=== PATIENT | male | born 1960 | race Caucasian/White ===

== ENCOUNTER 2021-06-16 16:29 | Emergency (ER) | payer OTHER, SELFPAY ==
[2021-06-16] VITALS (8 sets, daily range): BP systolic 108–145; BP diastolic 64–81; PULSE 68–82; RESP 14–21; TEMP 36.8; O2SAT 97–100
--- NOTE | ~2021-06-16 | XR_ITS ---
EXAMINATION: XR chest 2V DATE: 06/16/2021 17:59 INDICATION: Shortness of breath. TECHNIQUE: Frontal and lateral views of the chest were obtained. COMPARISON: Chest single view 05/30/2019, CT abdomen and pelvis 03/25/2017 FINDINGS: The chest demonstrates clear lungs without pneumonia, pleural effusion, or pneumothorax. Th e heart size is normal. IMPRESSION: 1. No acute cardiopulmonary disease. Reviewed, dictated and finalized at location A.
--- NOTE | 2021-06-16 16:46 | ECG_ITS ---
Measurements Intervals [place] Rate: 70 P: 82 [place]: 148 QRS: 70 QRSD: 77 T: 95 QT: 346 QTc: 375 Interpretive Statements SINUS RHYTHM NONSPECIFIC ST & T-WAVE ABNORMALITY- INF/LAT LEADS BASELINE ARTIFACT- II, V3-V6 BORDERLINE ECG Electronically Signed On 06-16-2021 19:11:55 CDT by Hernandez Gibson D.O.
[2021-06-16 17:00] LABS: Basophils Percent Auto 0.2 % (0.2-1.2); Eosinophils Absolute Auto 0.1 K/mm3 (0-0.3); Eosinophils Percent Auto 0.7 % (0-4.4); Hemoglobin 16.1 g/dL (14.0-18.0); Immature Granulocyte Absolute 0.07 K/mm3 (0.00-0.031); Immature Granulocyte Percent A 0.6 % (0-0.5); Lymphocytes Absolute Auto 2.85 K/mm3 (0.9-3.2); Lymphocytes Percent Auto 24.1 % (18.3-44.2); Mean Corpuscular HGB Conc 34.3 g/dl (32-36); Mean Corpuscular Hemoglobin 30.4 pg (26-34); Mean Corpuscular Volume 88.8 fl (80-100); Mean Platelet Volume 10.5 fl (7.4-10.4); Monocytes Absolute Auto 0.9 K/mm3 (0.1-0.6); Monocytes Percent Auto 7.2 % (2.6-8.5); Neutrophils Percent Auto 67.2 % (45.5-73.1); Platelet Count Result 349 k/mm3 (150-375); Red Blood Count 5.29 M/mm3 (4.6-6.20); Red Cell Distribution Width 12.4 % (11.5-14.5); White Blood Count 11.8 K/mm3 (4.5-10.0)
[2021-06-16] MEDS: SODIUM CHLORIDE 0.9% IV 1,000 ML 999 ML IV CONT ×3 (17:34→18:54)
[2021-06-16 17:51] LABS: Alveolar/Arterial O2 Gradient 25.3 mmHg; Base Excess ABG -4.3 mEq/l (+/-2.0); Fractional Inspired Oxygen 21 %; HCO3 ABG 19.9 mEq/l (22.0-26.0); Oxygen Content ABG 19.8 %vol (16.0-22.0); Oxygen Saturation ABG 96.2 % (95.0-100.0); Oxyhemoglobin 91.9 % THb (90.0-100.0); PCO2 ABG 34.1 mmHg (35.0-45.0); PO2 ABG 83.6 mmHg (80.0-100.0); PO2 FiO2 Ratio Arterial Blood 3.98 %; Total Hemoglobin 15.3 g/dL (12.0-18.0); pH ABG 7.383 (7.350-7.450)
[2021-06-16 17:52] LABS: Device ROOM AIR; Modified Allen's Test Pass; Site Drawn RIGHT RADIAL
[2021-06-16 18:02] LABS: Beta-Hydroxybutyrate/Acetoacetate 0.15 mmol/L (0.02-0.27)
[2021-06-16 18:04] LABS: Troponin I < 0.012 ng/mL (0.000-0.034)
--- NOTE | 2021-06-16 18:14 | ED.DIZZY ---
HPI - Dizziness General Chief Complaint: Dizziness Stated Complaint: dizziness Time Seen by Provider: 06/16/21 17:12 History of Present Illness HPI Narrative: Patient presents with generalized weakness. Patient ports that been going on for the past couple days and is reporting paresthesias in his lower legs. Patient was concerned so he came in for evaluation. This weakness is associated with shortness of breath prickly with physical activity reports mild decrease in his appetite but has been drinking fluids. Denies any focal areas of pain such as chest pain, abdominal pain. He denies any fevers, cough, pain with urination. He did report a history of kidney infection and was worried something similar may be occurring Related Data Allergies Allergy/AdvReac Type Severity Reaction Status Date / Time No Known Allergies Allergy Verified 06/16/21 16:46 Review of Systems Review of Systems: CONSTITUTIONAL: Denies fever, chills, or sweats. EYES: Denies visual changes, redness, or discharge. ENT: Denies rhinorrhea, congestion, sore throat, or otalgia. CARDIOVASCULAR: Denies chest pain, palpitations, or edema. RESPIRATORY: Denies cough or dyspnea. GASTROINTESTINAL: Denies abdominal pain, nausea, vomiting, or diarrhea. GENITOURINARY: Denies dysuria or hematuria. SKIN: Denies rash or itching. MUSCULOSKELETAL: Denies back pain, joint pain, or myalgia. NEUROLOGIC: Denies headache, numbness, or focal weakness. PSYCHIATRIC: Denies anxiety or depression. All systems reviewed & are unremarkable except as noted in HPI and below PMFSH Family History Family History (Updated 09/12/13 @ 13:29 by DOCTOR UNKNOWN) Other Cerebrovascular accident Diabetes mellitus Social History Social History Alcohol intake: current Exam Narrative: GENERAL: Well-appearing, well-nourished, and in no acute distress. HEAD: Normocephalic, atraumatic. EYES: PERRLA and EOMI. ENT: Nares clear, no rhinorrhea or epistaxis. Mucous membranes moist. NECK: Supple. No masses. No JVD CHEST: Clear to auscultation. No respiratory distress. No wheezes rales or rhonchi HEART: Regular rate and rhythm. No murmur heard. Normal peripheral pulses. ABDOMEN: Soft, nontender, nondistended, normal active bowel sounds. EXTREMITIES: Normal range of motion. No edema. SKIN: Warm, dry, no rash. NEURO: 5 out of 5 strength in bilateral lower extremities alert and oriented x3. PSYCH: Normal mood and affect. Course Reevaluation(s) Reevaluation #1: PT reports feeling improved, PVR 100 Date: 06/16/21 Time: 20:30 Vital Signs Vital signs: Vital Signs Temperature 36.8 C 06/16/21 16:38 Pulse Rate 79 06/16/21 16:38 Respiratory Rate 16 06/16/21 16:38 Blood Pressure 145/75 H 06/16/21 16:38 Pulse Oximetry 100 06/16/21 16:38 Temperature 36.8 C 06/16/21 16:38 Pulse Rate 70 06/16/21 20:45 Respiratory Rate 14 06/16/21 20:45 Blood Pressure 144/81 H 06/16/21 20:45 Pulse Oximetry 97 06/16/21 20:45 MDM - Dizziness Lab Data Result diagrams: 06/16/21 16:48 06/16/21 19:29 Labs: Lab Results 06/16/21 06/16/21 06/16/21 Range/Units 16:48 16:48 16:48 WBC 11.8 H (4.5-10.0) K/mm3 RBC 5.29 (4.6-6.20) M/mm3 Hgb 16.1 (14.0-18.0) g/dL Hct 47.0 (42.0-52.0) % MCV 88.8 (80-100) fl MCH 30.4 (26-34) pg MCHC 34.3 (32-36) g/dl RDW 12.4 (11.5-14.5) % Plt Count 349 (150-375) k/mm3 MPV 10.5 H (7.4-10.4) fl Immature Gran % (Auto) 0.6 H (0-0.5) % Neut % (Auto) 67.2 (45.5-73.1) % Lymph % (Auto) 24.1 (18.3-44.2) % [place] % (Auto) 7.2 (2.6-8.5) % Eos % (Auto) 0.7 (0-4.4) % Baso % (Auto) 0.2 (0.2-1.2) % Lymph # (Auto) 2.85 (0.9-3.2) K/mm3 [place] # (Auto) 0.9 H (0.1-0.6) K/mm3 Eos # (Auto) 0.1 (0-0.3) K/mm3 Baso # (Auto) 0.0 (0.0-0.1) K/mm3 Abs Immat Gran (auto) 0.07 H (0.00-0.031) K/mm3 Absolute Neuts (auto) 8.0 H (1.3-6.7) K/m
[2021-06-16 18:21] LABS: Anion Gap 12 mmol/L (8-16); Blood Urea Nitrogen 43 mg/dL (9-20); Calcium 9.5 mg/dL (8.4-10.2); Carbon Dioxide 18 mmol/L (22-30); Chloride 101 mmol/L (98-107); Estimated CRCL calculation 65 ml/min; Estimated Glomerular Filt Rate 52; Glucose 366 mg/dL (65-110); Potassium 4.9 mmol/L (3.4-5.0); Sodium 131 mmol/L (137-145)
[2021-06-16 18:33] LABS: Add Urine Microscopic? YES; Appearance Urine Clear (Clear); Bilirubin Urine Negative (Negative); Blood Urine Negative (Negative); Color Urine Yellow (Yellow); Glucose Urine UA 3+ mg/dL (Negative); Ketones Urine Negative (Negative); Leukocyte Esterase Ur Negative LEU/UL (Negative); Mucus Urine Rare /lpf; Nitrate Urine Negative (Negative); Protein Urine Negative (Negative); RBC Urine 0-2 /hpf (0-2); Specific Grav Ur 1.024 (1.001-1.035); Squamous Epithelial Cell Urine Rare /hpf (Few); Urobilinogen Urine Negative mg/dL (<2.0); WBC Urine 0-3 /hpf
--- NOTE | 2021-06-16 19:17 | PC.NURSE ---
report to hiram womack
[2021-06-16 19:46] LABS: Glucose 223 mg/dL (65-110)
--- NOTE | 2021-06-16 21:01 | PC.NURSE ---
Ambulation per ERP instruction tolerated well. ERP made aware at this time.
== END 2021-06-16 21:30 | disposition home or self-care (01) ==
PROVIDERS: Family Medicine; Emergency Provider Emergency Medicine; PCP Internal Medicine
DX: N17.9 Acute kidney failure, unspecified (principal); R42 Dizziness and giddiness
CPT/HCPCS: 36415; 36600; 71046; 80048; 81001; 82010; 82805; 82947; 84484; 85025; 93005; 96360; 99284; J7030

== ENCOUNTER 2022-12-09 14:14 | Emergency (ER) | payer OTHER, SELFPAY ==
[2022-12-09 14:17] VITALS: BP 167/87; PULSE 76; RESP 18; TEMP 37; O2SAT 99
--- NOTE | 2022-12-09 15:29 | ED.EPISTAXIS ---
HPI - Epistaxis General Chief complaint: Epistaxis Stated complaint: nose bleed Time Seen by Provider: 12/09/22 14:32 Source: patient Mode of arrival: ambulatory Limitations: no limitations History of Present Illness HPI Narrative: Patient is a 62 y/o male who presents to the ED with c/o epistaxis. Patient reports he first developed an epistaxis from his left nare this morning. He was unable to get the bleeding to stop. Patient is on Plavix d/t Hx of previous coronary stenting. He was seen at the ED at [facility] in [place], [place] this morning at which time he had what appears to be a merocel placed in his L nare. He was placed on Amoxicillin for TSS prophylaxis. Patient reports he has continued to bleed around the Merocel packing. He has had blood dripping out the front of his nare and down his throat. Patient states he was not given ENT f/u. Denies fevers, nausea, vomiting, severe pain. Related Data Allergies Allergy/AdvReac Type Severity Reaction Status Date / Time No Known Allergies Allergy Verified 06/16/21 16:46 Review of Systems Review of Systems: CONSTITUTIONAL: Denies fever, chills, or sweats. ENT: See HPI. CARDIOVASCULAR: Denies chest pain. RESPIRATORY: Denies dyspnea. GASTROINTESTINAL: Denies abdominal pain, nausea, vomiting. NEUROLOGIC: Denies headache, numbness, or weakness. All systems reviewed & are unremarkable except as noted in HPI and below PMFSH Past Medical History Medical History (Updated 12/09/22 @ 17:30 by Kay George PA-C) Coronary artery disease Diabetes mellitus HLD (hyperlipidemia) HTN (hypertension) Surgical History Surgical History (Updated 12/09/22 @ 17:30 by Kay George PA-C) History of coronary artery stent placement Family History Family History (Updated 09/12/13 @ 13:29 by DOCTOR UNKNOWN) Other Cerebrovascular accident Diabetes mellitus Social History Social History Alcohol intake: current Exam Narrative: GENERAL: Well appearing, obese, non-toxic, in no acute distress. HEAD: Normocephalic, atraumatic. EYES: PERRLA/EOMI, conjunctiva clear. ENT: Dried blood in bilateral nares, L>R, nasal packing in place in L nare. Gauze tip of packing does appear to be soaked with blood. No blood down posterior pharynx. No tonsillar hypertrophy or exudate. Uvula midline. NECK: Supple. No adenopathy, no masses. RESPIRATORY: Airway patent, respirations nonlabored. Clear to auscultation bilaterally, no rales, rhonchi, wheezing. CARDIOVASCULAR: Regular rate and rhythm without murmurs, rubs, or gallops. Radial pulses 2+ and equal bilaterally. MUSCULOSKELETAL: Moves all extremities. Strength/ROM intact without gross deformities. SKIN: Warm, dry, normal color. No rashes. NEURO: A&O X3. Speech clear. Cranial nerves II-XII grossly intact. Steady gait. No ataxic movements. PSYCHIATRIC: Appropriate mood and affect. Normal interaction. Course Vital Signs Vital signs: Vital Signs Temperature 98.6 F 12/09/22 14:17 Pulse Rate 76 12/09/22 14:17 Respiratory Rate 18 12/09/22 14:17 Blood Pressure 167/87 H 12/09/22 14:17 Pulse Oximetry 99 12/09/22 14:17 Oxygen Delivery Room Air 12/09/22 14:17 Temperature 98.6 F 12/09/22 14:17 Pulse Rate 70 12/09/22 15:53 Respiratory Rate 12 12/09/22 15:53 Blood Pressure 135/86 12/09/22 15:53 Pulse Oximetry 95 12/09/22 15:53 Oxygen Delivery Room Air 12/09/22 14:17 Procedures Epistaxis Control left: Epistaxis Control Date: 12/09/22 Epistaxis Control Time: 15:30 Time Out Performed: Yes Nose Prepped With: oxymetazoline Direct Inspection: unable to visualize Clots Removed by: blowing nose Cautery Used: none Device Inserted: nasal tampon Device Size: 5 Patient Tolerated Procedure: well and no complications Complications: other (none) MDM - E
[2022-12-09 15:53] VITALS: BP 135/86; PULSE 70; RESP 12; O2SAT 95
== END 2022-12-09 16:11 | disposition home or self-care (01) ==
PROVIDERS: Emergency Provider Physician Assistant; PCP Internal Medicine
DX: R04.0 Epistaxis (principal); I25.10 Atherosclerotic heart disease of native coronary artery without angina pectoris; I10 Essential (primary) hypertension; E11.9 Type 2 diabetes mellitus without complications; E78.5 Hyperlipidemia, unspecified; Z95.5 Presence of coronary angioplasty implant and graft; Z79.02 Long term (current) use of antithrombotics/antiplatelets; Z79.4 Long term (current) use of insulin; Z79.84 Long term (current) use of oral hypoglycemic drugs
CPT/HCPCS: 30901; 99283; A9270

== ENCOUNTER 2023-12-01 00:52 | Day surgery (SDC) | payer OTHER, SELFPAY ==
[2023-11-30 13:52] VITALS: BMI 33.7
[2023-12-01] VITALS (16 sets, daily range): BP systolic 118–163; BP diastolic 68–99; PULSE 56–70; RESP 12–20; TEMP 36.3–36.7; O2SAT 94–98; BMI 32.0
[2023-12-01 07:45] LABS: Basophils Percent Auto 0.4 % (0.2-1.2); Eosinophils Absolute Auto 0.2 K/mm3 (0-0.3); Eosinophils Percent Auto 2.9 % (0-4.4); Hematocrit 50.7 % (42.0-52.0); Hemoglobin 16.3 g/dL (14.0-18.0); Immature Granulocyte Absolute 0.03 K/mm3 (0.00-0.031); Immature Granulocyte Percent A 0.4 % (0-0.5); Lymphocytes Absolute Auto 1.43 K/mm3 (0.9-3.2); Lymphocytes Percent Auto 20.9 % (18.3-44.2); Mean Corpuscular HGB Conc 32.1 g/dl (32-36); Mean Corpuscular Hemoglobin 29.9 pg (26-34); Mean Platelet Volume 10.2 fl (7.4-10.4); Monocytes Absolute Auto 0.6 K/mm3 (0.1-0.6); Monocytes Percent Auto 8.8 % (2.6-8.5); Neutrophils Absolute Auto 4.6 K/mm3 (1.3-6.7); Neutrophils Percent Auto 66.6 % (45.5-73.1); Platelet Count Result 253 k/mm3 (150-375); Red Blood Count 5.45 M/mm3 (4.6-6.20); Red Cell Distribution Width 13.1 % (11.5-14.5); White Blood Count 6.8 K/mm3 (4.5-10.0)
[2023-12-01 08:11] LABS: Anion Gap 5 mmol/L (8-16); Blood Urea Nitrogen 16 mg/dL (9-20); Calcium 8.8 mg/dL (8.4-10.2); Carbon Dioxide 26 mmol/L (22-30); Chloride 107 mmol/L (98-107); Estimated CRCL calculation 137 ml/min; Estimated Glomerular Filt Rate > 60; Glucose 212 mg/dL (65-110); Sodium 138 mmol/L (137-145)
[2023-12-01 08:16] LABS: Potassium 5.3 mmol/L (3.4-5.0)
--- NOTE | 2023-12-01 10:42 | WPDMODSED ---
Moderate Sedation Note-Pt Data Patient Data Diagnosis: Coronary disease with previous PCI to the LAD remote past aortic valve stenosis exertional shortness of breath Present Complaint: TORRES Procedure to be performed/Plan: left heart catheterization Allergies Allergy/AdvReac Type Severity Reaction Status Date / Time No Known Allergies Allergy Verified 12/01/23 07:24 Home Medications Medication Instructions Recorded Confirmed Type atorvastatin 40 mg tablet 40 mg PO DAILY 12/12/22 11/30/23 History clopidogrel 75 mg tablet 75 mg PO DAILY 12/12/22 11/30/23 History gemfibrozil 600 mg tablet 600 mg PO BID 12/12/22 11/30/23 History insulin glargine 100 unit/mL (3 82 unit subcut DAILY 12/12/22 11/30/23 History mL) subcutaneous pen (Basaglar KwikPen U-100 Insulin) lisinopril 20 mg tablet 20 mg PO DAILY 12/12/22 11/30/23 History metformin 1,000 mg tablet 1,000 mg PO BID 12/12/22 11/30/23 History aspirin 81 mg chewable tablet 81 mg PO DAILY 11/30/23 11/30/23 History metoprolol succinate 50 mg 50 mg PO DAILY 11/30/23 11/30/23 History tablet,extended release 24 hr Current Medications: Active Medications Sodium Chloride (Normal Saline Iv) 500 mls @ 100 mls/hr IV CONT .Q5H MIRNA Sedation/Anesthesia: No previous sedation/anesthesia problems (including family history). [facility] Past Medical History Medical History Coronary artery disease Diabetes mellitus HLD (hyperlipidemia) HTN (hypertension) Surgical History Surgical History History of coronary artery stent placement Family History Family History Other Cerebrovascular accident Diabetes mellitus Social History Social History (Updated 12/12/22 @ 15:51 by EVANGELISTA Olmstead) Smoking packs per day: 1 Smoking cigarettes per day: 20.0 Years smoked: 45 Smoking pack-years: 45.00 Smoking status: Current every day smoker Tobacco type: cigarettes Alcohol intake: current Alcohol use details: occasional Substance use: never Substance use type: does not use Lack of Transportation: No Lack of Food: Never True Current Housing: I Have Housing Concerned About Future Housing: No Difficulty Paying Gas/Electric Bills: No Difficulty Paying for Meds: No Currently Unemployed: No Education: High School Diploma/GED Difficulty w/ Childcare or Family Care: No Living arrangements: with family Spiritual care concerns: No Mod Sed Physical Exam Physical Exam Pre Procedural Exam: Normal: Neck, Throat, Airway, Lungs, Heart Size, Heart Rate, Heart Rhythm, Neuro Exam and Extremities and Variation: Appearance ( pleasant overweight gentleman no apparent distress) Hours since solid foods: 12 Hours since liquid intake: 12 Mallampati Classification: class II Internal Medicine - PN: Obj Da Vital Signs Vital Signs: Vital Signs - 24 hr 12/01/23 07:33 Temperature 36.3 C L Pulse Rate 60 Respiratory Rate 16 Blood Pressure 121/77 Pulse Oximetry 94 Oxygen Delivery Room Air Meds/Results Medications: Active Medications Generic Name Dose Route Start Last Admin Trade Name Freq PRN Reason Stop Dose Admin Sodium Chloride 500 mls @ 100 mls/hr 12/01/23 07:30 Normal Saline Iv IV CONT .Q5H MIRNA Labs 12/01/23 07:30 12/01/23 07:30 Labs: Laboratory Results - last 24 hr 12/01/23 07:30 WBC 6.8 RBC 5.45 Hgb 16.3 Hct 50.7 MCV 93.0 MCH 29.9 MCHC 32.1 RDW 13.1 Plt Count 253 MPV 10.2 Immature Gran % (Auto) 0.4 Neut % (Auto) 66.6 Lymph % (Auto) 20.9 [place] % (Auto) 8.8 H Eos % (Auto) 2.9 Baso % (Auto) 0.4 Lymph # (Auto) 1.43 [place] # (Auto) 0.6 Eos # (Auto) 0.2 Baso # (Auto) 0.0 Abs Immat Gran (auto) 0.03 Absolute Neuts (auto) 4.6 Absolute Nucleated RBC 0.0 Nucleated RBC % 0.0 Sodium 13
--- NOTE | 2023-12-01 10:43 | WPDCARDPROC ---
Cardiac Cath Procedure Note Date of procedure:: 12/01/23 Performing physician:: Ilan Reich MD Indication:: coronary disease and aortic valve stenosis evaluation prior to considering aortic valve replacement Brief clinical history:: this is a 62-year-old man with coronary disease history of aggressive PCI with rotational atherectomy and stenting of the proximal half of the LAD in 2009. He also is known to have aortic valve stenosis which has been essentially asymptomatic he is now reporting exertional shortness of breath of recent onset and echocardiogram suggests that he has severe aortic valve stenosis. Left ventricular systolic function looked normal. In this left heart catheterization is being performed prior to considering aortic valve replacement Procedure Procedure performed:: coronary angiography left-sided hemodynamics with left ventriculography and pullback pressures across the aortic valve Sedation/Medication given:: fentanyl 50 mg Versed 2 mg case start time 10 13 case end time 10:38 a.m. sedation provided by Omayra Mendez RN, trained observer Access site:: right femoral artery Estimated blood loss:: 20 cc Procedure note:: patient was brought to the cardiac catheterization lab in the postabsorptive state where the right femoral triangle was prepped draped the usual fashion. Anesthesia was provided with 1% lidocaine infiltrated locally. Using the modified Seldinger technique the femoral artery was punctured and a 5 Polish vascular sheath was placed. After this I used a 5 Polish FL4 catheter to engage and inject the left coronary artery in multiple projections subsequently a 5 Polish JR4 catheter was used to engage and inject the right coronary artery in orthogonal projections. After this I used the JR4 catheter with a straight wire to cross the aortic valve and enter the left ventricle where hemodynamic assessment was performed and then pullback pressures were measured across the aortic valve. Left ventriculography was not injected. Procedure was then terminated. A femoral angiogram was performed through the sheath after which it was determined the puncture site was not appropriate for Angio-Seal. Was taken to the holding area for manual sheath removal. Procedure was uncomplicated and well tolerated there was no evidence of groin hematoma upon leaving the cardiac catheterization lab. Findings:: Hemodynamics: Central aortic pressure is 108/54. Left ventricle 122 over 0 end-diastolic 16 there is 14 mm peak gradient across the aortic valve. Left main coronary artery is short but nicely patent the left anterior descending is a moderate caliber artery with stent material from the 1st portion of the LAD down to the midportion of the vessel. The the stented segment has no significant InStent stenosis. There is a 2nd diagonal branch with moderate ostial disease but this is a very small diagonal. There is then a step-down from the segment of the LAD that is stented into the mid to distal LAD. There is however angiographically no more than about 40-50% stenosis at this segment. There is SUSHILA 3 flow down to around the apex. The LAD distal to this angiographically is rather small. The circumflex is moderate caliber and dominant for posterior circulation. The circumflex has some mild diffuse luminal irregularities noted but angiographically there are no significant lesions identified. The right coronary artery is small to medium in caliber non dominant giving rise to 2 right ventricular branches. The RCA angiographically is non disease. Conclusion:: 1. Left coronary dominant circulation with previous proximal to mid LAD segment that was stented and the long segment of the artery this remains nicely patent with minimal step-down at the end of the stented segment but no functionally his significant lesions are seen in the LAD. 2. Dominant circumflex without significant disease 3. likely
== END 2023-12-01 16:37 | disposition home or self-care (01) ==
PROVIDERS: PCP Internal Medicine; Visit Provider Specialist
PROC: 4A023N7 Measurement of Cardiac Sampling and Pressure, Left Heart, Percutaneous Approach (ICD-10-PCS; CPT 93452; principal; 2023-12-01 09:00)
DX: I25.10 Atherosclerotic heart disease of native coronary artery without angina pectoris (principal); I35.0 Nonrheumatic aortic (valve) stenosis; Z95.818 Presence of other cardiac implants and grafts
CPT/HCPCS: 36415; 80048; 85025; 93458; C1769; C1887; C1894; J0461; J1644; J2250; J3010; J7040

== ENCOUNTER 2024-12-30 11:12 | Inpatient (IN) | payer OTHER, SELFPAY ==
[2024-12-30] VITALS (58 sets, daily range): BP systolic 109–173; BP diastolic 78–120; PULSE 91–137; RESP 10–24; TEMP 36.5–36.9; O2SAT 90–98; BMI 33.8
--- NOTE | ~2024-12-30 | US_ITS ---
EXAMINATION: US venous doppler [facility] DATE: 12/30/2024 21:07 INDICATION: bilateral lower extremity edema . TECHNIQUE: Grayscale images without and with compression and Doppler images of the bilateral lower ex tremity veins were obtained. COMPARISON: None FINDINGS: The right common femoral vein, profunda (deep) femoral vein, femoral vein, popliteal vein, peroneal v ein, posterior tibial veins, gastrocnemius vein, and greater saphenous vein are patent. The left common femoral vein, profunda (deep) femoral vein, femoral vein, popliteal vein, peroneal v ein, posterior tibial veins, gastrocnemius vein, and greater saphenous vein are patent. IMPRESSION: Patent bilateral lower extremity veins. No evidence of deep venous thrombosis. Reviewed, dictated and finalized at location K. ICAL REVIEW NURSE
--- NOTE | ~2024-12-30 | XR_ITS ---
EXAMINATION: XR chest 2V DATE: 12/30/2024 14:00 INDICATION: Shortness of breath. TECHNIQUE: Frontal and lateral views of the chest were obtained. COMPARISON: Chest 2 views 06/16/2021, CT abdomen and pelvis 03/25/2017 FINDINGS: There is mild atelectasis at right lung base. No pleural effusion or pneumothorax. The hear t size is normal. IMPRESSION: 1. Mild atelectasis at right lung base. Reviewed, dictated and finalized at location A. PING CAR PORTER
--- NOTE | 2024-12-30 11:19 | ECG_ITS ---
Test Date: 2024-12-30 11:22:05 Measurements Intervals [place] Rate: 137 P: 0 [place]: 0 QRS: 75 QRSD: 88 T: 102 QT: 289 QTc: 437 Interpretive Statements ATRIAL FLUTTER/TACHYCARDIA WITH RAPID VENTRICULAR RESPONSE BORDERLINE R WAVE PROGRESSION, ANTERIOR LEADS NONSPECIFIC ST & T-WAVE ABNORMALITY- INF/LAT LEADS BASELINE ARTIFACT- I, II, III, AVR, AVL, AVF, V4-V6 ABNORMAL ECG No previous ECG available for comparison Electronically Signed On 12-30-2024 11:29:02 [employer] MACHINE OPERATOR by Hernandez Gibson D.O.
[2024-12-30 13:49] LABS: Basophils Percent Auto 0.3 % (0.2-1.2); Eosinophils Absolute Auto 0.1 K/mm3 (0-0.3); Eosinophils Percent Auto 1.2 % (0-4.4); Hematocrit 45.1 % (42.0-52.0); Hemoglobin 14.2 g/dL (14.0-18.0); Immature Granulocyte Absolute 0.02 K/mm3 (0.00-0.031); Immature Granulocyte Percent A 0.2 % (0-0.5); Lymphocytes Absolute Auto 1.04 K/mm3 (0.9-3.2); Lymphocytes Percent Auto 11.6 % (18.3-44.2); Mean Corpuscular HGB Conc 31.5 g/dl (32-36); Mean Corpuscular Hemoglobin 29.5 pg (26-34); Mean Corpuscular Volume 93.6 fl (80-100); Mean Platelet Volume 10.3 fl (7.4-10.4); Monocytes Absolute Auto 0.6 K/mm3 (0.1-0.6); Monocytes Percent Auto 7.1 % (2.6-8.5); Neutrophils Absolute Auto 7.1 K/mm3 (1.3-6.7); Neutrophils Percent Auto 79.6 % (45.5-73.1); Platelet Count Result 281 k/mm3 (150-375); Red Blood Count 4.82 M/mm3 (4.6-6.20); Red Cell Distribution Width 15.2 % (11.5-14.5)
[2024-12-30] MEDS: METOPROLOL TARTRATE INJ 5 MG/5 ML VIAL IV PUSH (13:51)
--- NOTE | 2024-12-30 13:54 | ED_ITS ---
HPI - General Adult General Chief complaint: Recheck/Abnormal Lab/Rx Stated complaint: htn Time Seen by Provider: 12/30/24 13:28 History of Present Illness HPI narrative: 64-year-old male history of hypertension high cholesterol presents the emergency department for evaluation for multiple complaints including shortness of breath, leg swelling, high blood pressure. Patient states that he did go to urgent care and was referred to the emergency department for further evaluation. Upon arrival emergency department patient denies any chest pain and denies any current shortness of breath. Patient is saturating well on room air. Patient did have a elevated heart rate arrival. Patient states he did take his medications for blood pressure today. Patient does have history of aortic stenosis and does follow-up with Dr Reich Related Data Home Medications ?Medication ?Instructions ?Recorded ?Confirmed ?Last Taken ?Type atorvastatin 40 mg tablet 40 mg PO DAILY 12/12/22 11/30/23 11/30/23 History clopidogrel 75 mg tablet 75 mg PO DAILY 12/12/22 11/30/23 11/30/23 History gemfibrozil 600 mg tablet 600 mg PO BID 12/12/22 11/30/23 11/30/23 History insulin glargine 100 unit/mL (3 82 unit subcut DAILY 12/12/22 11/30/23 11/30/23 History mL) subcutaneous pen (Basaglar KwikPen U-100 Insulin) lisinopril 20 mg tablet 20 mg PO DAILY 12/12/22 11/30/23 11/30/23 History metformin 1,000 mg tablet 1,000 mg PO BID 12/12/22 11/30/23 11/30/23 History aspirin 81 mg chewable tablet 81 mg PO DAILY 11/30/23 11/30/23 11/30/23 History metoprolol succinate 50 mg 50 mg PO DAILY 11/30/23 11/30/23 11/30/23 History tablet,extended release 24 hr Allergies Allergy/AdvReac Type Severity Reaction Status Date / Time No Known Allergies Allergy Verified 12/30/24 11:25 Review of Systems 2 Review of Systems: All systems reviewed & are unremarkable except as noted in HPI and below PMFSH Past Medical History Medical History Coronary artery disease Diabetes mellitus HLD (hyperlipidemia) HTN (hypertension) Surgical History Surgical History History of coronary artery stent placement Family History Family History Other Cerebrovascular accident Diabetes mellitus Social History Social History (Updated 12/12/22 @ 15:51 by EVANGELISTA Olmstead) Smoking packs per day: 1 Smoking cigarettes per day: 20.0 Years smoked: 45 Smoking pack-years: 45.00 Smoking status: Current every day smoker Tobacco type: cigarettes Alcohol intake: current Alcohol use details: occasional Substance use: never Substance use type: does not use Lack of Transportation: No Lack of Food: Never True Current Housing: I Have Housing Concerned About Future Housing: No Difficulty Paying Gas/Electric Bills: No Difficulty Paying for Meds: No Currently Unemployed: No Education: High School Diploma/GED Difficulty w/ Childcare or Family Care: No Living arrangements: with family Spiritual care concerns: No Exam 2 Narrative: APPEARANCE: Well appearing, no pain, no distress, well-nourished. HEAD: normocephalic, atraumatic. EYES: PERRLA/EOMI, conjunctivae clear. NOSE: Normal no drainage EARS:TMS clear with good light reflex. THROAT: Pharynx clear, no exudate. NECK: Supple. No adenopathy, no masses. RESPIRATORY: Airway patent, respirations nonlabored. Clear to auscultation bilaterally, no rales, rhonchi, wheezing. CARDIOVASCULAR: Regular rate and rhythm without murmurs rubs or gallops. ABDOMINAL: Soft, nontender, nondistended, normal bowel sounds MUSCULOSKELETAL: Lower extremity edema NEURO: Alert. Cranial nerves II through XII intact. Good gait. Good coordination SKIN: Warm, dry. Normal Color Course Vital Signs Vital signs: Vital Signs Temperature 97.7 F 12/30/24 11:20 Pulse Rate 125 H 12/30/24 11:20 Respiratory Rate 16 12/30/24 11:20 Blood Pressure 154/119 H 12/30/24 11:20 Pulse Oximetry 98 12/30/24 11:20 Oxygen Delivery Room Air 12/30/24 11:20 Temperature 97.7 F 12/30/24 11:20 Pulse Rate 109 H 12/30/24 15:06 Respiratory Rate 21 H 12/30/24 13:45 Blood Pressure 161/99 H 12/30/24 15:06 Pulse Oximetry 97 12/30/24 13:45 Oxygen Delivery Room Air 12/30/24 11:20 Medical Decision Making MDM Narrative Medical decision making narrative: [age] old male presenting emergency department for evaluation for a rapid heart rate in the 120s. Patient's EKG was concerning for AFib a flutter. Patient was treated with a dose of IV Lopressor and this did help lower his heart rate. After single dose of IV Lopressor patient's heart rate was decreased to 109. Patient does still have some hypertension with a blood pressure of 160/90. Patient is currently afebrile and has no leukocytosis and a stable hemoglobin of 14.2. No significant abnormalities on the patient's CMP. A BNP and viral swabs are pending. Chest x-ray just showed mild atelectasis. Patient was admitted for new onset AFib and patient was started on Cardizem bolus and infusion prior to admission. Case was discussed with hospitalist patient was accepted to IMU. Patient family updated the results of the workup plan for admission. Differential Diagnosis Differential Diagnosis: Tachycardia, AFib, a flutter, CHF, pneumonia, COVID, RSV, influenza Vital Signs Vital Signs: Vital Signs Temperature 97.7 F 12/30/24 11:20 Pulse Rate 125 H 12/30/24 11:20 Respiratory Rate 16 12/30/24 11:20 Blood Pressure 154/119 H 12/30/24 11:20 Pulse Oximetry 98 12/30/24 11:20 Oxygen Delivery Room Air 12/30/24 11:20 Temperature 97.7 F 12/30/24 11:20 Pulse Rate 109 H 12/30/24 15:06 Respiratory Rate 21 H 12/30/24 13:45 Blood Pressure 161/99 H 12/30/24 15:06 Pulse Oximetry 97 12/30/24 13:45 Oxygen Delivery Room Air 12/30/24 11:20 Lab Data Lab results reviewed: Yes I reviewed the patient's lab results. 12/30/24 13:44 12/30/24 13:44 Labs: Lab Results 12/30/24 12/30/24 Range/Units 13:44 13:50 WBC 9.0 (4.5-10.0) K/mm3 RBC 4.82 (4.6-6.20) M/mm3 Hgb 14.2 (14.0-18.0) g/dL Hct 45.1 (42.0-52.0) % MCV 93.6 (80-100) fl MCH 29.5 (26-34) pg MCHC 31.5 L (32-36) g/dl RDW 15.2 H (11.5-14.5) % Plt Count 281 (150-375) k/mm3 MPV 10.3 (7.4-10.4) fl Immature Gran % (Auto) 0.2 (0-0.5) % Neut % (Auto) 79.6 H (45.5-73.1) % Lymph % (Auto) 11.6 L (18.3-44.2) % Bennett % (Auto) 7.1 (2.6-8.5) % Eos % (Auto) 1.2 (0-4.4) % Baso % (Auto) 0.3 (0.2-1.2) % Lymph # (Auto) 1.04 (0.9-3.2) K/mm3 Bennett # (Auto) 0.6 (0.1-0.6) K/mm3 Eos # (Auto) 0.1 (0-0.3) K/mm3 Baso # (Auto) 0.0 (0.0-0.1) K/mm3 Abs Immat Gran (auto) 0.02 (0.00-0.031) K/mm3 Absolute Neuts (auto) 7.1 H (1.3-6.7) K/mm3 Absolute Nucleated RBC 0.000 (0.0-0.012) K/mm3 Nucleated RBC % 0.0 (0.0-0.2) % PT 13.7 (11.1-14.7) Seconds INR 1.0 APTT 29.6 (22.3-36.8) Seconds Sodium 142 (137-145) mmol/L Potassium 3.7 (3.4-5.0) mmol/L Chloride 107 (98-107) mmol/L Carbon Dioxide 28 (22-30) mmol/L Anion Gap 7 (4-12) mmol/L BUN 14 (9-20) mg/dL Creatinine 0.59 L (0.7-1.3) mg/dL Estim Creat Clear Calc 140 ml/min Estimated GFR > 60 (59 - ) Glucose 76 (65-110) mg/dL Calcium 9.1 (8.4-10.2) mg/dL Total Bilirubin 0.9 (0.2-1.3) mg/dL AST 22 (17-59) U/L ALT 20 (6-50) U/L Alkaline Phosphatase 86 (38-126) U/L NT-Pro-B Natriuret Pep 3500 H (19.9-100) pg/mL Total Protein 7.0 (6.3-8.2) g/dL Albumin 4.0 (3.5-5.1) g/dL Influenza A (RT-PCR) Negative (Negative) Influenza B (RT-PCR) Negative (Negative) RSV (RT-PCR) Negative (Negative) SARS-CoV-2 RNA (RT-PCR) Positive A (Negative) Imaging Data Radiologist's impression: Impressions Chest X-Ray 12/30/24 14:02 IMPRESSION: 1. Mild atelectasis at right lung base. Critical Care Time Critical Care Time Critical Care Time: Yes Total Critical Care Time: 35 Discharge Plan Discharge Clinical Impression: Shortness of breath, Hypertension, Atrial fibrillation and flutter, COVID Patient Disposition: Still a Patient Condition: Serious
[2024-12-30 14:05] LABS: Alanine Aminotransferase 20 U/L (6-50); Alkaline Phosphatase 86 U/L (38-126); Anion Gap 7 mmol/L (4-12); Aspartate Amino Transferase 22 U/L (17-59); Bilirubin,Total 0.9 mg/dL (0.2-1.3); Blood Urea Nitrogen 14 mg/dL (9-20); Calcium 9.1 mg/dL (8.4-10.2); Carbon Dioxide 28 mmol/L (22-30); Chloride 107 mmol/L (98-107); Estimated CRCL calculation 140 ml/min; Estimated Glomerular Filt Rate > 60; Glucose 76 mg/dL (65-110); Potassium 3.7 mmol/L (3.4-5.0); Sodium 142 mmol/L (137-145)
--- NOTE | 2024-12-30 14:06 | ECG_ITS ---
Test Date: 2024-12-30 14:10:43 Measurements Intervals [place] Rate: 108 P: 0 TN: 0 QRS: 65 QRSD: 103 T: 132 QT: 316 QTc: 425 Interpretive Statements ATRIAL FLUTTER/TACHYCARDIA WITH RAPID VENTRICULAR RESPONSE BORDERLINE R WAVE PROGRESSION, ANTERIOR LEADS BORDERLINE ST-T WAVE ABNORMALITY- HIGH LATERAL LEADS ABNORMAL ECG Compared to ECG 12/30/2024 11:22:05 HEART RATE HAS DECREASED Electronically Signed On 12-30-2024 14:43:41 RAT EXTERMINATOR by Hernandez Gibson D.O.
--- OUTSIDE RECORDS SUMMARY | 2024-12-30 14:13 | XMS_ITS | Referral Summary ---
Author Organization [facility] [place] [address] [facility] [address] Address [address] [place] [address] Care Team Providers Care Manager Telecom Name Role Phone Mohan Ashby MD Primary Care Provider Encounters Date Type Department Care Team Description 12/20/2024 Telephone [facility] Cardiology [address] [facility] [address] [place] [address] Ilan Reich MD Shortness of Breath from Last 3 Months Allergies No known active allergies Medications metoprolol (LOPRESSOR) 25 mg tablet TAKE 1/2 TABLET TWICE A DAY 30 0 2 Active atorvastatin (LIPITOR) 40 mg tablet take 1 tablet by oral route every day 0 0 5 Active metFORMIN (GLUCOPHAGE) 1,000 mg tablet TAKE 2 TABLET DAILY--NEEDS TO MAKE AND KEEP APPT. 60 1 5 Active aspirin 81 mg chewable tablet chew 1 tablet by oral route every day 0 0 6 Active gemfibrozil (LOPID) 600 mg tablet take 1 tablet (600MG) by oral route 2 times every day 30 minutes before morning and evening meal 60 6 2 Active clopidogrel (PLAVIX) 75 mg tablet TAKE ONE TABLET DAILY 30 2 2 Active lisinopriL (PRINIVIL,ZESTR IL) 20 mg tablet lisinopril 20 mg tablet TAKE 1 TABLET BY MOUTH EVERY DAY 4 Active BASAGLAR 100 unit/mL (3 mL) pen for injection 82 Units 3 Active Active Problems Problem Noted Date Diagnosed Date Nonrheumatic aortic valve stenosis 06/16/2022 Morbid (severe) obesity due to excess calories 0 06/16/2022 Coronary artery disease invo lving [place] coronary artery of [place] heart without angina pectoris 01/25/2018 History of coronary artery stent placement 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 ([facility]) 04/30 Hyperlipidemia 01/27/2014 Seborrheic eczema 01/27/2014 Atherosclerosis of coronary artery 01/27/2014 Overview (02/23/2018): Description: s/p two stents Hypertension 01/27/2014 Type 2 diabetes mellitus 01/27/2014 Immunizations Immunization Administration Dates Next Due Pneumococcal Polysaccharide PPV23 01/27/2014 Social History Tobacco Use Types Packs/Day Years Used Date Smoking Tobacco: Every Day Tobacco Cessation:Ready to Q uit: Not Asked; Counseling Given: Not Answered Comments:Smoking History Packs/day: 1 Packs Alcohol Use Standard Drinks/Week Comments Yes 0 (1 standard drink = 0.6 oz pur e alcohol) Sex and Gender Information Value Date Recorded Sex Assigned at Not on file Legal Sex Male 4:11 AM FACILITY REHAB DIRECTOR Gender Identity Not on file Sexual Orientation Not on file Last Filed Vital Signs Vital Sign Reading Time Taken Comments Blood Pressure 158/84 10/10/2023 1:52 PM FACILITY REHAB DIRECTOR Pulse 53 10/10/2023 1:49 PM FACILITY REHAB DIRECTOR Temperature - - Respiratory Rate - - Oxygen Saturation 99% 10/10/2023 1:49 PM FACILITY REHAB DIRECTOR Inhaled Oxygen Concentration - - Weight 110.2 kg (243 lb) 10/10/2023 1:49 PM FACILITY REHAB DIRECTOR Height 182.9 cm (6') 10/10/2023 1:49 PM FACILITY REHAB DIRECTOR Body Mass Index 32.96 10/10/2023 1:49 PM FACILITY REHAB DIRECTOR Plan of Treatment Not on file Procedures Procedure Name Priority Date/Time Associated Diagnosis Comments POCT LIPID PANEL Routine 09/21/2023 8:16 AM FACILITY REHAB DIRECTOR Coronary artery disease involving [place] coronary artery of [place] heart without angina pectoris from Last 3 Months or Most Recently Relevant to Health Maintenance Results * POCT lipid panel (09/21/2023 8:16 AM FACILITY REHAB DIRECTOR) Cholesterol, POC <100 mg/dL HDL, POC 39 mg/dL Triglycerides, POC <45 mg/dL LDL Cholesterol POC 47 mg/dL Chol/HDL Ratio, POC N/A Non-HDL Cholesterol, POC N/A mg/dL Cholesterol Total, POC <100 mg/dL Capillary blood 09/21/2023 8 :16 AM FACILITY REHAB DIRECTOR Ilan Reich MD POINT OF CARE TEST ORDER DONNELL Final Result from Last 3 Months or Most Recently Relevant to Health Maintenance Insurance Member Subscriber Plan / Payer (Ef fective 2014-Present) Name:ILAN LANGE Relation to Subscriber:Self Name:Ilan Lange Payer ID:[id number] (NAIC) Type:[facility] HMO/PPO Address: [place] [id number] Member Subscriber Plan / Payer (Ef fective 2014-Present) Name:ILAN LANGE Relation to Subscriber:Self Name:Ilan Lange Payer ID:[id number] (NAIC) Type:[facility] HMO/PPO Address: [place] [phone] Care Teams Manager Telecom Relationship Specialty Start Date End Date Mohan Ashby MD PCP - General Internal Medicine 01/25/18
--- OUTSIDE RECORDS SUMMARY | 2024-12-30 14:13 | XMS_ITS | Clinical Summary ---
Author Organization [facility] [place] [address] Address [address] [place] [address] Care Team Providers Care Embedded Engineer Name Role Phone Mohan Ashby MD Primary Care Provider [phone] Allergies No known active allergies Medications metoprolol [...] 0 06/16/2022 Coronary artery disease invo lving [place] coronary artery of [place] heart without angina pectoris 01/25/2018 History of coronary artery stent placement 01/25 [facility] current use of insulin (CMS/HCC) 04/30 Hyperlipidemia 01/27/2014 Seborrheic eczema 01/27/2014 Atherosclerosis of coronary artery 01/27/2014 Overview (02/23/2018): Description: s/p two stents Hypertension 01/27/2014 Type 2 diabetes mellitus 01/27/2014 Encounters Date Type Department Care Team Description 12/20/2024 Telephone [facility] Cardiology [address] [place] [address] Ilan Reich MD Shortness of Breath from Last 3 Months Immunizations Immunization Administration Dates Next Due Pneumococcal Polysaccharide PPV23 01/27/2014 Medical History Medical History Date Comments Hypertension Hypertension Chronic obstructive pulmonar y disease (HCC) COPD [facility] current use of ins ulin (CMS/HCC) (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 - (Added by TW Conv) Family History Medical History Relation Name Comments Heart attack Father 2 Myocardial Infa rction; Heart disease Father 2 Heart Disease - (Added by TW Conv) Stroke Father 2 Stroke Syndrome - (Added by TW Conv) Cancer Mother Cancer - (Added by TW Conv) Diabetes Mother Diabetes Mellit - (Added by TW Conv) Relation Name Status Comments Father 1 Alive Father 2 Mother Social History Tobacco Use Types Packs/Day Years Used Date Smoking Tobacco: Every Day Tobacco Cessation:Ready to Q uit: Not Asked; Counseling Given: Not Answered Comments:Smoking History Packs/day: 1 Packs Alcohol Use Standard Drinks/Week Comments Yes 0 (1 standard drink = 0.6 oz pur e alcohol) Sex and Gender Information Value Date Recorded Sex Assigned at Not on file Legal Sex Male 4:11 AM MATRIX REPAIRER Gender Identity Not on file Sexual Orientation Not on file Obstetrics History Last Filed Vital Signs Vital Sign Reading Time Taken Comments Blood Pressure 158/84 10/10/2023 1:52 PM MATRIX REPAIRER Pulse 53 10/10/2023 1:49 PM MATRIX REPAIRER Temperature - - Respiratory Rate - - Oxygen Saturation 99% 10/10/2023 1:49 PM MATRIX REPAIRER Inhaled Oxygen Concentration - - Weight 110.2 kg (243 lb) 10/10/2023 1:49 PM MATRIX REPAIRER Height 182.9 cm (6') 10/10/2023 1:49 PM MATRIX REPAIRER Body Mass Index 32.96 10/10/2023 1:49 PM MATRIX REPAIRER Plan of Treatment Health Maintenance Due Date Last Done Comments Albumin Creatinine Ratio, Urine 1960 Colon Cancer Screening-Colonoscopy 1960 Depression Screening 1960 Hemoglobin A1C 1960 Hepatitis C Screening 1960 Prostate Cancer Screening-PSA 1960 eGFR 1960 Dilated Eye Exam 1960 Foot Exam 1960 Hepatitis B Screening 1978 Regular Well Visit/Exam 18-64 1978 Zoster Vaccine (1 of 2) 2010 Pneumococcal vaccine <65 (2 of 2 - PCV) 01/27/2015 01/27/2014 Influenza Vaccine (#1) 2024 10/05/2021 Lipid Panel 09/21/2024 09/21/2023, 08/0 02/2022, 01/30/2015 DTaP/Tdap/Td Vaccine (2 - Td or Tdap) 03/11/2032 Procedures Procedure Name Priority Date/Time Associated Diagnosis Comments POCT LIPID PANEL Routine 09/21/2023 8:16 AM MATRIX REPAIRER Coronary artery disease involving [place] coronary artery of [place] heart without angina pectoris from Last 3 Months or Most Recently Relevant to Health Maintenance Results * POCT lipid panel (09/21/2023 8:16 AM MATRIX REPAIRER) Cholesterol, POC <100 mg/dL HDL, POC 39 mg/dL Triglycerides, POC <45 mg/dL LDL Cholesterol POC 47 mg/dL Chol/HDL Ratio, POC N/A Non-HDL Cholesterol, POC N/A mg/dL Cholesterol Total, POC <100 mg/dL Capillary blood 09/21/2023 8 :16 AM MATRIX REPAIRER us Ilan Reich MD POINT OF CARE TEST ORDER DONNELL Final Result from Last 3 Months or Most Recently Relevant to Health Maintenance Insurance [facility] Care Teams Embedded Engineer Relationship Specialty Start Date End Date Mohan Ashby MD PCP - General Internal Medicine 01/25/18
--- OUTSIDE RECORDS SUMMARY | 2024-12-30 14:13 | XMS_ITS | Encounter Summary ---
Author Organization [facility] Healthcare Address [address] [place] [id number] Care Team Providers Care Ax Survey Worker Name Role Phone Mohan Ashby MD Primary Care Provider [phone] Reason for Visit * Reason Onset Date Comments Shortness of Breath 12/20/2024 Encounter Details Date Type Department Care Team (Late st Contact Info) Description 12/20/2024 Telephone [facility] Medical Group Cardiology [address] [facility] [address] [address] Ilan Reich MD [address] [facility] [address] [place] [address] Shortness of Breath Social History Tobacco Use Types Packs/Day Years Used Date Smoking Tobacco: Every Day Comments:Smoking History Pac ks/day: 1 Packs Alcohol Use Standard Drinks/Week Comments Yes 0 (1 standard drink = 0.6 oz pur e alcohol) Sex and Gender Information Value Date Recorded Sex Assigned at Not on file Legal Sex Male 4:11 AM STOCK HANGER Gender Identity Not on file Sexual Orientation Not on file documented as of this encounter Miscellaneous Notes * Telephone Encounter - Gosia Cordero RN - 12/20/2024 2:17 PM STOCK HANGER Spoke with pt, he had some dull pain in his chest this morning when he first woke up for a few hours that went away on its own and he has some similar yesterday as well but none prior to that. Pt hasbeen coughing on and off and producing sputum with the cough. Pt said he is on his second round of a ntibiotics for a cold he has been dealing with-he has a call out to his PCP as well. Pt is feeling fine at the time of our call. Pt is aware to report to ED if he has severe CP that is unrelieved with rest and he is scheduled to see MJF 01/06. Advised him to call sooner with any further concerns. K HANGER * Telephone Encounter - Elizabeth Dallas - 12/20/2024 1:48 PM CST Nesha (pts spouse) states that the patient just arrived home and he is experiencing some intermittent chest pain. Please advise. Thank you. Contact [phone] K HANGER * Telephone Encounter - Gosia Cordero RN - 12/20/2024 10:15 AM STOCK HANGER Spoke with pts regarding her message she is going to call pts PCP about his SOB when he is in the cold. She is not aware of pt having any cardiac concerns like CP. Scheduled pt for overdue f/u appt with F while I had her on the phone. K HANGER * Telephone Encounter - Elizabeth Dallas - 12/20/2024 9:52 AM CST Nesha (pts spouse) states that the patient has been having SOB when he gets in the cold. States that he has been experiencing it for the past 3 weeks. States that he has been on antibiotics for a cold for two weeks. Please advise. Thank you. Contact [phone] K HANGER documented in this encounter Plan of Treatment Not on file documented as of this encounter Visit Diagnoses Not on filedocumented in this encounter Care Teams Ax Survey Worker Relationship Specialty Start Date End Date Mohan Ashby MD PCP - General Internal Medicine 01/25/18 documented as of this encounter
--- OUTSIDE RECORDS SUMMARY | 2024-12-30 14:13 | XMS_ITS | Clinical Summary ---
Author Organization [facility] Address [employer] [address] [place] [address] Phone Care Team Providers Care Guest Services Manager Name Role Phone Mohan Ashby MD Primary Care Provider [phone] Ilan Reich MD Unavailable [phone] Allergies No known active allergies Medications aspirin 81 MG Chewable Tablet 81 mg. 6 Active atorvastatin (LIPITOR) 40 MG Tablet 40 mg. 5 Active metoprolol tartrate (LOPRESSOR) 25 MG Tablet 25 mg. 2 Active metFORMIN (GLUCOPHAGE) 1000 MG Tablet TAKE 1 TABLET BY MOUTH TWICE A DAY 2 Active lisinopril (PRINIVIL, ZESTRIL) 20 MG Tablet Take 20 mg by mouth daily. 2 Active Accu-Chek FastClix Lancets [facility] USE TO TEST BLOOD SUGAR TWICE A DAY 2 Active Insulin Glulisine (Apidra SoloStar) 100 UNIT/ML Solution Pen-injector 6 Active Insulin Glargine, 1 Unit Dial, (Toujeo SoloStar) 300 UNIT/ML Solution Pen-injector inject by subcutaneous route as per insulin protocol 6 Active gemfibrozil (LOPID) 600 MG Tablet TAKE 1 TABLET BY MOUTH TWICE A DAY 30 MINUTES BEFORE AM AND PM MEALS 2 Active clopidogrel (PLAVIX) 75 MG Tablet Take 1 Tablet by mouth daily. 2 Active Active Problems Problem Noted Date Diagnosed Date History of coronary artery stent placement 01/25 halfway current use of insulin 04/30/2014 Atherosclerosis of coronary artery 01/27/2014 Overview (04/22/2022): Description: s/p two stents Hyperlipidemia 01/27/2014 Hypertension 01/27/2014 Type 2 diabetes mellitus 01/27/2014 Seborrheic eczema 01/27/2014 Immunizations Immunization Administration Dates Next Due Influenza Vaccine, Quadrivalent, PF 10/05/2021 Pneumococcal Vaccine Adult - 23 Valent 4 Sars-cov-2 (Covid-19) Vaccine, Unspecified 08/20,07/27/2021 TDAP Vaccine 03/11/2022 Family History Medical History Relation Name Comments Cancer Mother Relation Name Status Comments Mother Social History Tobacco Use Types Packs/Day Years Used Date Smoking Tobacco: Every Day Smokeless Tobacco: Never Alcohol Use Standard Drinks/Week Comments Yes 0 (1 standard drink = 0.6 oz pur e alcohol) Rare Sexually Active Control Partners Comments Not Currently Sex and Gender Information Value Date Recorded Sex Assigned at Not on file Legal Sex Male 11:42 PM CDT Gender Identity Not on file Sexual Orientation Not on file Last Filed Vital Signs Vital Sign Reading Time Taken Comments Blood Pressure 112/68 04/22/2022 9:05 AM CDT Pulse 78 04/22/2022 9:05 AM CDT Temperature - - Respiratory Rate 20 04/22/2022 9:05 AM CDT Oxygen Saturation 98% 04/22/2022 9:05 AM CDT Inhaled Oxygen Concentration - - Weight 112 kg (247 lb) 04/22/2022 9:05 AM CDT Height 182.9 cm (6') 04/22/2022 9:05 AM CDT Body Mass Index 33.5 04/22/2022 9:05 AM CDT Plan of Treatment Health Maintenance Due Date Last Done Comments Diabetes: Eye Exam 1960 Diabetes: Foot Exam 1960 Diabetes: Hemoglobin A1c 1960 Hepatitis C Virus (HCV) Screening 1960 Diabetes: Nephropathy Screening 1978 Colonoscopy 2005 Colorectal Cancer Screening 2005 Cologuard 2010 Immunochemical Fecal Occult Blood 2010 Zoster Immunization (1 of 2) 2010 Pneumococcal Immunization (5 0+ years) (2 of 2 - PCV) 01/27/2015 01/27/2014 PSA Discussion 2015 Respiratory Syncytial Virus (RSV) Immunization (Adult) (1 - Risk 60-74 years 1-dose series) 2020 Influenza Immunization (#1) 2024 10/05/2021 SARS-COV-2 Immunization (3 - season) 2024 08/20/2021, 07/27/2021 Pneumococcal Immunization Combined Discontinued 01/27/2014 DTaP/Tdap/Td Immunization Discontinued 03/11/2022 Hepatitis B Immunization Aged Out No longer eligible based on patient's age to complete this topic Meningococcal Immunization (ACWY) Aged Out No longer eligible based on patient's age to complete this topic Rotavirus Immunization Aged Out No lo nger eligible based on patient's age to complete [place] [address] Care Teams Guest Services Manager Relationship Specialty Start Date End Date Mohan Ashby MD PCP - General Internal Medicine 04/06/22 Ilan Reich MD [address] [place] [address] Cardiovascular Disease - Cardiology 04/22/22
[2024-12-30 14:38] LABS: Influenza A QL RT-PCR Negative (Negative); Influenza B QL RT-PCR Negative (Negative); RSV RNA, RT-PCR Negative (Negative); SARS-CoV-2 RNA PCR Positive (Negative)
[2024-12-30 14:42] LABS: Prothrombin Time 13.7 Seconds (11.1-14.7)
[2024-12-30 14:43] LABS: Partial Thromboplastin Time 29.6 Seconds (22.3-36.8)
[2024-12-30 14:44] LABS: NT Pro B Type Natriuretic Pept 3500 pg/mL (19.9-100)
--- NOTE | 2024-12-30 14:55 | P.HP_ITS ---
H&P: HPI History of Present Illness Date/Time: 12/30/24 14:55 Chief Complaint: Racing heart and elevated blood pressure. Narrative: This is a 64-year-old male smoker with coronary artery disease status post stent to the mid LAD, mild aortic stenosis, hypertension, hyperlipidemia, and type 2 diabetes mellitus who presented to the emergency department from urgent care with complaints of racing heart and elevated blood pressure. The patient provides the following history. He endorses occasional, self-limiting palpitation which have been ongoing for many months if not longer. Over the last couple of weeks however the episode seemed to be more frequent and are lasting longer. He feels his heart racing and beating quickly though it does not necessarily feel irregular. He has also noticed swelling in his lower legs and shortness of breath with activity at work. Additionally he reports occasional dizziness, loose stools for the last week, sinus congestion, and a nonproductive cough. He went to urgent care and was referred to the emergency department for further evaluation of tachycardia and elevated blood pressures. He denies syncope, near syncope, fever, sore throat, chest and pleuritic pain, orthopnea, paroxysmal nocturnal dyspnea, vomiting, and calf pain. No known history of thyroid disease or sleep apnea though reports that he snores heavily. He denies significant alcohol and caffeine use. In the ED: Vital signs on arrival include a temperature of 97.7, blood pressure 154/119, pulse 125, respiratory 16, SpO2 98% on room air. CBC and CMP were pretty unremarkable. ProBNP was 3500. He tested positive for SARS-CoV-2 by PCR. Chest x-ray showed mild atelectasis at the right lung base. EKG showed atrial flutter/tachycardia with rapid ventricular response and rates in the 130s. He received metoprolol 5 mg IV without improvement in his heart rate and he has since been started on a diltiazem drip. He is being admitted in this setting for further treatment and evaluation. Review of Systems Review of Systems: 12 systems were reviewed and are negativ e except for as per HPI. FORMERLY [facility], [facility] Past Medical History Medical History (Updated 12/30/24 @ 21:05 by Deanne Serrato PA-C) Tobacco dependence Mild aortic stenosis Hyperlipidemia Hypertension Insulin dependent type 2 diabetes mellitus Coronary artery disease Surgical History Surgical History (Updated 12/30/24 @ 20:54 by Deanne Serrato PA-C) History of cataract extraction History of coronary artery stent placement mid LAD Family History Family History Other Cerebrovascular accident Diabetes mellitus Social History Social History (Updated 12/30/24 @ 20:55 by Deanne Serrato PA-C) Social History: Surrogate medical decision maker: Janie Lange, spouse ([phone]). Code status: Full code. Smoking packs per day: 1 Smoking cigarettes per day: 20.0 Years smoked: 45 Smoking pack-years: 45.00 Smoking status: Current every day smoker Tobacco type: cigarettes Alcohol intake: current Alcohol use details: social alcohol use in moderation Substance use: never Substance use type: does not use Lack of Transportation: No Lack of Food: Never True Current Housing: I Have Housing Concerned About Future Housing: No Difficulty Paying Gas/Electric Bills: No Difficulty Paying for Meds: No Currently Unemployed: No Education: High School Diploma/GED Difficulty w/ Childcare or Family Care: No Living arrangements: with family Spiritual care concerns: No Meds Home Medications and Allergies Home Medications ?Medication ?Instructions ?Recorded ?Confirmed ?Type atorvastatin 40 mg tablet 40 mg PO DAILY 12/12/22 11/30/23 History clopidogrel 75 mg tablet 75 mg PO DAILY 12/12/22 11/30/23 History gemfibrozil 600 mg tablet 600 mg PO BID 12/12/22 11/30/23 History insulin glargine 100 unit/mL (3 82 unit subcut DAILY 12/12/22 11/30/23 History mL) subcutaneous pen (Basaglar KwikPen U-100 Insulin) lisinopril 20 mg tablet 20 mg PO DAILY 12/12/22 11/30/23 History metformin 1,000 mg tablet 1,000 mg PO BID 12/12/22 11/30/23 History aspirin 81 mg chewable tablet 81 mg PO DAILY 11/30/23 11/30/23 History metoprolol succinate 50 mg 50 mg PO DAILY 11/30/23 11/30/23 History tablet,extended release 24 hr Allergies Allergy/AdvReac Type Severity Reaction Status Date / Time No Known Allergies Allergy Verified 12/30/24 11:25 Vital Signs Vital Signs - 24 hr 12/30/24 11:20 12/30/24 13:36 12/30/24 13:42 Temperature 97.7 F Pulse Rate 125 H 137 H Respiratory Rate 16 15 19 Blood Pressure 154/119 H Pulse Oximetry 98 97 96 Oxygen Delivery Room Air 12/30/24 13:45 12/30/24 13:51 Temperature Pulse Rate 136 H 132 H Respiratory Rate 21 H Blood Pressure 150/120 H Pulse Oximetry 97 Oxygen Delivery Exam Narrative: General: Mildly ill-appearing gentleman sitting up in bed in no acute distress. Weight: 13.6 kg. BMI: 34.0. HEENT: PERRL, EOMI. Sclera anicteric. Oral mucosa moist. Oropharynx clear. Neck: Supple. No JVD or lymphadenopathy. Respiratory: Lungs are clear to auscultation bilaterally. Cardiovascular: Regular rate and rhythm. Systolic murmur at the upper sternal border and apex. Gastrointestinal: Abdomen is soft, nontender, and nondistended with positive bowel sounds. Delete Skin: Warm and dry. Shallow breath shins on the left anterior del valle. Extremities: No cyanosis or clubbing. Two to 3+ bilateral lower extremity edema up to the knees. No palpable knots or cords. Negative Mellissa sign bilaterally. Neurological: Alert. Cranial nerves 2-12 are grossly intact. No gross focal deficits to casual conversation. Psychiatric: Pleasant and cooperative with normal mood and affect. Judgment and insight intact. H&P: Results Labs Labs: Short CBC 12/30/24 Range/Units 13:44 WBC 9.0 (4.5-10.0) K/mm3 Hgb 14.2 (14.0-18.0) g/dL Hct 45.1 (42.0-52.0) % Plt Count 281 (150-375) k/mm3 [facility] 12/30/24 13:44 Sodium 142 Potassium 3.7 Chloride 107 Carbon Dioxide 28 BUN 14 Creatinine 0.59 L Glucose 76 Calcium 9.1 Liver Function 12/30/24 Range/Units 13:44 Total Bilirubin 0.9 (0.2-1.3) mg/dL AST 22 (17-59) U/L ALT 20 (6-50) U/L Alkaline Phosphatase 86 (38-126) U/L Albumin 4.0 (3.5-5.1) g/dL Impressions Chest X-Ray 12/30/24 14:02 IMPRESSION: 1. Mild atelectasis at right lung base. Assessment and Plan Assessment and plan (1) Atrial flutter with rapid ventricular response: Code(s): I48.92 - Unspecified atrial flutter Status: Acute (2) COVID: Code(s): U07.1 - COVID-19 Status: Acute (3) Lower extremity edema: Code(s): R60.0 - Localized edema Status: Acute (4) Suspected sleep apnea: Code(s): R29.818 - Other symptoms and signs involving the nervous system Status: Acute (5) Coronary artery disease: Code(s): I25.10 - Atherosclerotic heart disease of [place] coronary artery without angina pectoris Status: Acute (6) Hypertension: Code(s): I10 - Essential (primary) hypertension Status: Acute (7) Insulin dependent type 2 diabetes mellitus: Code(s): E11.9 - Type 2 diabetes mellitus without complications; Z79.4 - [facility] (current) use of insulin Status: Acute (8) Tobacco dependence: Code(s): F17.200 - Nicotine dependence, unspecified, uncomplicated Status: Acute (9) Mild aortic stenosis: Code(s): I35.0 - Nonrheumatic aortic (valve) stenosis Status: Acute Plan The patient presented to the emergency department from urgent care for evaluation after he was found to be tachycardic and hypertensive as detailed in HPI. Labs, imaging, EKG, and all reports were personally reviewed. He is positive for COVID and has been started on remdesivir given his risk factors. He was in atrial tachycardia/flutter with rapid ventricular response on arrival and did not slow down with metoprolol IV and he has since been started on a diltiazem drip. An echocardiogram has been ordered for further evaluation given history of coronary artery disease and aortic stenosis. He has significant lower extremity edema which could be related to high output failure from the rapid heart rate however lower extremity venous Doppler ultrasounds have been ordered to rule out DVT. Apnea link ordered to screen for possible sleep apnea. Enoxaparin 1 mg/kg has been ordered. Continue dual anti-platelet therapy and await further recommendations from his bottom man, Dr. Reich. Monitor blood pressures closely as he may need adjustments in his antihypertensive. Continue basal insulin. Initiate sliding scale insulin, Accu-Cheks, and hypoglycemic protocol. Smoking cessation is imperative and was discussed. He seems motivated to quit smoking. His home medications will be reviewed and resumed as appropriate. Findings and treatment plan were discussed with the patient. Questions were solicited and answered to satisfaction. The patient's medical management will be taken over by the hospitalist team in a.m. Quality VTE Prophylaxis VTE prophylaxis: pharmacologic ordered Hospitalist MIPS Advance Care Plan I have confirmed that the patient's Advanced Care Plan is present, code status is documented, or surrogate decision maker is listed in patient medical record.: Yes Medication Reconciliation I have utilized all available resources to obtain, update and review the patients current medications (includes all prescriptions, OTC, herbals, cannabis, and nutritional supplements).: Yes
[2024-12-30] MEDS: dilTIAZem 100 MG/100 ML 100 MG/100 ML BAG IV CONT (15:06)
[2024-12-30] MEDS: dilTIAZem HCl INJ 25 MG/5 ML VIAL 10 MG IV PUSH (15:06)
--- OUTSIDE RECORDS SUMMARY | 2024-12-30 16:02 | XMS_ITS | Referral Summary ---
Author Organization [facility] [address] Address [address] [place] [address] Care Team Providers Care Surgical Supervisor Name Role Phone Mohan Ashby MD Primary Care Provider Encounters Date Type Department Care Team Description 12/20/2024 Telephone [facility] Medical [facility] Cardiology [address] [facility] [address] [place] [address] Ilan Reich MD Shortness of [...] 0 06/16/2022 Coronary artery disease invo lving jamul coronary artery of jamul heart without angina pectoris 01/25/2018 History of coronary artery 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 ([facility]) 04/30 Hyperlipidemia 01/27/2014 Seborrheic eczema 01/27/2014 Atherosclerosis [...] on file Legal Sex 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 Gender Identity Not on file Sexual Orientation Not on file Last Filed Vital Signs Vital Sign Reading Time Taken Comments Blood Pressure 158/84 10/10/2023 1:52 PM RAILROAD TRACK MECHANIC Pulse 53 10/10/2023 1:49 PM RAILROAD TRACK MECHANIC Temperature - - Respiratory Rate - - Oxygen Saturation 99% 10/10/2023 1:49 PM RAILROAD TRACK MECHANIC Inhaled Oxygen Concentration - - Weight 110.2 kg (243 lb) 10/10/2023 1:49 PM RAILROAD TRACK MECHANIC Height 182.9 cm (6') 10/10/2023 1:49 PM RAILROAD TRACK MECHANIC Body Mass Index 32.96 10/10/2023 1:49 PM RAILROAD TRACK MECHANIC Plan of Treatment Not on file Procedures Procedure Name Priority Date/Time Associated Diagnosis Comments POCT LIPID PANEL Routine 09/21/2023 8:16 AM RAILROAD TRACK MECHANIC Coronary artery disease involving jamul coronary artery of jamul heart without angina pectoris from Last 3 Months or Most Recently Relevant to Health Maintenance Results * POCT lipid panel (09/21/2023 8:16 AM RAILROAD TRACK MECHANIC) Cholesterol, POC <100 mg/dL HDL, POC 39 mg/dL Triglycerides, POC <45 mg/dL LDL Cholesterol POC 47 mg/dL Chol/HDL Ratio, POC N/A Non-HDL Cholesterol, POC N/A mg/dL Cholesterol Total, POC <100 mg/dL Capillary blood 09/21/2023 8 :16 AM RAILROAD TRACK MECHANIC Ilan Reich MD POINT OF CARE TEST ORDER DONNELL Final Result from Last 3 Months or Most Recently Relevant to Health Maintenance Insurance Member Subscriber Plan / Payer (Ef fective 2014-Present) Name:ILAN LANGE Relation to Subscriber:Self Name:Ilan Lange Payer ID:[id number] (NAIC) Type:[facility] HMO/PPO Address: [place] [id number] Member Subscriber Plan / Payer (Ef fective 2014-Present) Name:ILAN LANGE Relation to Subscriber:Self Name:Ilan Lange Payer ID:[id number] (NAIC) Type:[facility] HMO/PPO Address: [place] [phone] Care Teams Surgical Supervisor Relationship Specialty Start Date End Date Mohan Ashby MD PCP - General Internal Medicine 01/25/18
--- OUTSIDE RECORDS SUMMARY | 2024-12-30 16:02 | XMS_ITS | Clinical Summary ---
Author Organization [facility] [address] Address [address] [place] [address] Care Team Providers Care Glass Cutter Name Role Phone Mohan Ashby MD Primary Care Provider Allergies No known active allergies Medications metoprolol [...] 0 06/16/2022 Coronary artery disease invo lving mary[place] igloo coronary artery of mary[place] ig[place] heart without angina pectoris 01/25/2018 History of coronary artery stent placement 01/25 halfway current use of insulin (CMS/HCC) 04/30 Hyperlipidemia 01/27/2014 Seborrheic eczema 01/27/2014 Atherosclerosis of coronary artery 01/27/2014 Overview (02/23/2018): Description: s/p two stents Hypertension 01/27/2014 Type 2 diabetes mellitus 01/27/2014 Encounters Date Type Department Care Team Description 12/20/2024 Telephone [facility] Medical [facility] Cardiology [address] [place] [address] Ilan Reich MD Shortness of Breath from Last 3 Months Immunizations Immunization Administration Dates Next Due Pneumococcal Polysaccharide PPV23 01/27/2014 Medical History Medical History Date Comments Hypertension Hypertension Chronic obstructive pulmonar y disease (HCC) COPD halfway current use of ins ulin (CMS/HCC) (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 - (Added [...] on file Legal Sex Male 4:11 AM CLINICAL STAFF ANESTHESIOLOGIST Gender Identity Not on file Sexual Orientation Not on file Obstetrics History Last Filed Vital Signs Vital Sign Reading Time Taken Comments Blood Pressure 158/84 10/10/2023 1:52 PM CLINICAL STAFF ANESTHESIOLOGIST Pulse 53 10/10/2023 1:49 PM CLINICAL STAFF ANESTHESIOLOGIST Temperature - - Respiratory Rate - - Oxygen Saturation 99% 10/10/2023 1:49 PM CLINICAL STAFF ANESTHESIOLOGIST Inhaled Oxygen Concentration - - Weight 110.2 kg (243 lb) 10/10/2023 1:49 PM CLINICAL STAFF ANESTHESIOLOGIST Height 182.9 cm (6') 10/10/2023 1:49 PM CLINICAL STAFF ANESTHESIOLOGIST Body Mass Index 32.96 10/10/2023 1:49 PM CLINICAL STAFF ANESTHESIOLOGIST Plan of Treatment Health Maintenance Due Date [...] POCT LIPID PANEL Routine 09/21/2023 8:16 AM CLINICAL STAFF ANESTHESIOLOGIST Coronary artery disease involving mary's igloo coronary artery of mary[place] ig[place] heart without angina pectoris from Last 3 Months or Most Recently Relevant to Health Maintenance Results * POCT lipid panel (09/21/2023 8:16 AM CLINICAL STAFF ANESTHESIOLOGIST) Cholesterol, POC <100 mg/dL HDL, POC 39 mg/dL Triglycerides, POC <45 mg/dL LDL Cholesterol POC 47 mg/dL Chol/HDL Ratio, POC N/A Non-HDL Cholesterol, POC N/A mg/dL Cholesterol Total, POC <100 mg/dL Capillary blood 09/21/2023 8 :16 AM CLINICAL STAFF ANESTHESIOLOGIST us Ilan Reich MD POINT OF CARE TEST ORDER DONNELL Final Result from Last 3 Months or Most Recently Relevant to Health Maintenance Insurance [facility] HMO/PPO Address: [address] [place] [phone] [facility] HMO/PPO Address: [address] [place] [phone] Care Teams Glass Cutter Relationship Specialty Start Date End Date Mohan Ashby MD PCP - General Internal Medicine 01/25/18
--- OUTSIDE RECORDS SUMMARY | 2024-12-30 16:02 | XMS_ITS | Clinical Summary ---
Author Organization [facility] Address [employer] [address] [place] [address] Phone Care Team Providers Care Merry Go Round Operator Name Role Phone Mohan Ashby MD Primary Care Provider [phone] Ilan Reich MD Unavailable [phone] Allergies No known active allergies Medications aspirin [...] mouth daily. 2 Active Accu-Chek FastClix Lancets [facility] USE TO TEST BLOOD SUGAR TWICE A [...] History of coronary artery stent placement 01/25 long-term current use of insulin 04/30/2014 Atherosclerosis of [...] patient's age to complete this topic Insurance Care Teams Merry Go Round Operator Relationship Specialty Start Date End Date Mohan Ashby MD PCP - General Internal Medicine 04/06/22 Ilan Reich MD [address] [place] [address] Cardiovascular Disease - Cardiology 04/22/22
--- OUTSIDE RECORDS SUMMARY | 2024-12-30 16:03 | XMS_ITS | Encounter Summary ---
Author Organization [facility] Healthcare Address [address] [place] [address] Care Team Providers Care Circulation Man Name Role Phone Mohan Ashby MD Primary Care Provider [phone] Reason for Visit * Reason Onset Date Comments Shortness of Breath 12/20/2024 Encounter Details Date Type Department Care Team (Late st Contact Info) Description 12/20/2024 Telephone [facility] Medical Group Cardiology [address] [facility] [address] [address] Ilan Reich MD [address] [facility] [address] [place] [address] Shortness of Breath Social History Tobacco Use Types Packs/Day Years Used Date Smoking Tobacco: Every Day Comments:Smoking History Pac ks/day: 1 Packs Alcohol Use Standard Drinks/Week Comments Yes 0 (1 standard drink = 0.6 oz pur e alcohol) Sex and Gender Information Value Date Recorded Sex Assigned at Not on file Legal Sex Male 4:11 AM NARRATIVE WRITER Gender Identity Not on file Sexual Orientation Not on file documented as of this encounter Miscellaneous Notes * Telephone Encounter - Gosia Cordero RN - 12/20/2024 2:17 PM NARRATIVE WRITER Spoke with pt, he had some dull [...] to call sooner with any further concerns. ATIVE WRITER * Telephone Encounter - Elizabeth Dallas - 12/20/2024 1:48 PM CST Nesha (pts spouse) states that the patient just arrived home and he is experiencing some intermittent chest pain. Please advise. Thank you. Contact [phone] ATIVE WRITER * Telephone Encounter - Gosia Cordero RN - 12/20/2024 10:15 AM NARRATIVE WRITER Spoke with pts regarding her message she is going to call pts PCP about his SOB when he is in the cold. She is not aware of pt having any cardiac concerns like CP. Scheduled pt for overdue f/u appt with F while I had her on the phone. ATIVE WRITER * Telephone Encounter - Elizabeth Dallas - 12/20/2024 9:52 AM CST Nesha (pts spouse) states that the patient has been having SOB when he gets in the cold. States that he has been experiencing it for the past 3 weeks. States that he has been on antibiotics for a cold for two weeks. Please advise. Thank you. Contact [phone] ATIVE WRITER documented in this encounter Plan of Treatment Not on file documented as of this encounter Visit Diagnoses Not on filedocumented in this encounter Care Teams Circulation Man Relationship Specialty Start Date End Date Mohan Ashby MD PCP - General Internal Medicine 01/25/18 documented as of this encounter
--- NOTE | 2024-12-30 21:50 | ADMGEN ---
This patient, Ilan Lange, was admitted to IMU Room 204-01. Patient/family oriented to hospital policies and general routines including ID bracelet, bed and alarms, visiting hours, pain management, procedures, bathroom and other care routines, personal items, smoking policy, room service/diet, and visiting hours. Information on how to activate the Rapid Response Team has been discussed. Patient/Family are encouraged to report perceived risks to care and to ask questions if they do not understand what they are told or what they should do.
[2024-12-30 22:06] LABS: Hemoglobin A1C 8.5 % (<5.7)
[2024-12-30] MEDS: REMDESIVIR 200 MG/NS 250 ML 200 MG/250 ML BAG 250 MG IVPB (23:36)
[2024-12-30] MEDS: ENOXAPARIN 120 MG/0.8 ML SYRINGE 115 MG SUB-Q (23:42)
[2024-12-31] VITALS (21 sets, daily range): BP systolic 112–151; BP diastolic 63–90; PULSE 88–127; RESP 18–24; TEMP 36.3–36.7; O2SAT 93–97
[2024-12-31] MEDS: dilTIAZem 100 MG/100 ML 100 MG/100 ML BAG IV CONT (03:48)
[2024-12-31 05:20] LABS: Hematocrit 42.8 % (42.0-52.0); Hemoglobin 13.6 g/dL (14.0-18.0); Mean Corpuscular HGB Conc 31.8 g/dl (32-36); Mean Corpuscular Hemoglobin 29.4 pg (26-34); Mean Corpuscular Volume 92.4 fl (80-100); Mean Platelet Volume 10.5 fl (7.4-10.4); Platelet Count Result 238 k/mm3 (150-375); Red Blood Count 4.63 M/mm3 (4.6-6.20); Red Cell Distribution Width 15.3 % (11.5-14.5); White Blood Count 7.9 K/mm3 (4.5-10.0)
[2024-12-31 05:40] LABS: Anion Gap 8 mmol/L (4-12); Blood Urea Nitrogen 14 mg/dL (9-20); Calcium 8.6 mg/dL (8.4-10.2); Carbon Dioxide 25 mmol/L (22-30); Chloride 108 mmol/L (98-107); Estimated CRCL calculation 144 ml/min; Estimated Glomerular Filt Rate > 60; Glucose 73 mg/dL (65-110); Magnesium 1.8 mg/dL (1.6-2.3); Potassium 3.3 mmol/L (3.4-5.0); Sodium 141 mmol/L (137-145)
[2024-12-31 08:20] LABS: Glucose Point of Care 65 mg/dl (65-105)
[2024-12-31 09:00] LABS: Glucose Point of Care 176 mg/dl (65-105)
--- NOTE | 2024-12-31 10:12 | P.CONCA_ITS ---
Assessment and Plan Assessment and plan (1) Atrial fibrillation and flutter: Code(s): I48.91 - Unspecified atrial fibrillation; I48.92 - Unspecified atrial flutter Status: Acute Assessment and Plan: He has EKG demonstrating atrial flutter with rapid ventricular response, telemetry currently appears to be atrial fibrillation with rapid ventricular response. This is a new diagnosis in the setting of COVID. Chronicity is unknown. He has been placed on a diltiazem drip but his heart rate remains in the 120's. * Will resume his home medication of metoprolol succinate 50mg. Up titrate as need be * Discontinue diltiazem gtt when HR below 100 bpm (currently on 5mg/hr) * He has a CHADS2 Vasc score of 3 (HTN, diabetes, CAD), therefore anticoagulation is indicated and he is agreeable. * Will start apixaban 5mg p.o. b.i.d. and discontinue ASA. Continue plavix. * Echo pending * DCCV as outpatient when he has been anticoagulated for at least 4 weeks. (2) History of coronary artery stent placement: Code(s): Z95.5 - Presence of coronary angioplasty implant and graft Status: Acute Assessment and Plan: Continue plavix and statin. ASA will be discontinued as we are staring DOAC (3) HLD (hyperlipidemia): Code(s): E78.5 - Hyperlipidemia, unspecified Status: Acute Assessment and Plan: Continue statin (4) HTN (hypertension): Code(s): I10 - Essential (primary) hypertension Status: Acute Assessment and Plan: At goal History of Present Illness History of Present Illness Consult date/time: 12/31/24 10:12 Requesting physician: Deanne Serrato PA-C Consult reason: Other (atrial flutter) Reason For Visit: Afib, a flutter with RVR Narrative: Ilan Lange is a 62-year-old man with coronary disease, history of aggressive PCI with rotational atherectomy and stenting of the proximal half of the LAD in 2009. He also is known to have aortic valve stenosis which was found to be mild by left heart cath in 2023. He comes to the hospital with complaints of shortness of breath, lower extremity swelling. He is found to be positive for COVID. EKG and telemetry demonstrate atrial fibrillation with rapid ventricular response. He does report feeling racing heartbeat occasionally but generally he is asymptomatic. He does not have any history of any cardiac arrhythmias. Review of Systems 2 Review of Systems: All systems reviewed & are unremarkable except as noted in HPI and below [facility] Past Medical History Medical History Tobacco dependence Mild aortic stenosis Hyperlipidemia Hypertension Insulin dependent type 2 diabetes mellitus Coronary artery disease Surgical History Surgical History History of cataract extraction History of coronary artery stent placement mid LAD Family History Family History Father Cerebrovascular accident Other Diabetes mellitus Social History Social History Social History: Surrogate medical decision maker: Janie Lange, spouse ([phone]). Code status: Full code. Smoking packs per day: 1 Smoking cigarettes per day: 20.0 Years smoked: 48 Smoking pack-years: 48.00 Smoking status: Current every day smoker Tobacco type: cigarettes Second hand tobacco smoke exposure: No Alcohol intake: never Alcohol use details: social alcohol use in moderation Substance use: current Substance use type: does not use Do You Feel Safe in your Home?: Yes Lack of Transportation: No Lack of Food: Never True Current Housing: I Have Housing Concerned About Future Housing: No Difficulty Paying Gas/Electric Bills: No Difficulty Paying for Meds: No Currently Unemployed: No Education: High School Diploma/GED Difficulty w/ Childcare or Family Care: No Living arrangements: with family Spiritual care concerns: No Meds Home Medications and Allergies Home Medications ?Medication ?Instructions ?Recorded ?Confirmed ?Type atorvastatin 40 mg tablet 40 mg PO DAILY 12/12/22 12/30/24 History clopidogrel 75 mg tablet 75 mg PO DAILY 12/12/22 12/30/24 History gemfibrozil 600 mg tablet 600 mg PO BID 12/12/22 12/30/24 History lisinopril 20 mg tablet 20 mg PO DAILY 12/12/22 12/30/24 History metformin 1,000 mg tablet 1,000 mg PO BID 12/12/22 12/30/24 History aspirin 81 mg chewable tablet 81 mg PO DAILY 11/30/23 12/30/24 History metoprolol succinate 50 mg 50 mg PO DAILY 11/30/23 12/30/24 History tablet,extended release 24 hr Allergies Allergy/AdvReac Type Severity Reaction Status Date / Time No Known Allergies Allergy Verified 12/30/24 11:25 Vital Signs Vital Signs - 24 hr 12/30/24 11:20 12/30/24 13:36 12/30/24 13:42 Temperature 36.5 C Pulse Rate 125 H 137 H Respiratory Rate 16 15 19 Blood Pressure 154/119 H Pulse Oximetry 98 97 96 Oxygen Delivery Room Air 12/30/24 13:45 12/30/24 13:51 12/30/24 15:01 Temperature Pulse Rate 136 H 132 H 112 H Respiratory Rate 21 H 20 Blood Pressure 150/120 H 161/99 H Pulse Oximetry 97 92 Oxygen Delivery 12/30/24 15:06 12/30/24 15:15 12/30/24 15:16 Temperature Pulse Rate 109 H 109 H 109 H Respiratory Rate 24 H 20 Blood Pressure 161/99 H 142/90 H Pulse Oximetry 90 91 Oxygen Delivery 12/30/24 15:30 12/30/24 15:31 12/30/24 15:45 Temperature Pulse Rate 102 H 102 H 102 H Respiratory Rate 19 21 H 19 Blood Pressure 126/91 H Pulse Oximetry 90 92 93 Oxygen Delivery 12/30/24 15:46 12/30/24 16:00 12/30/24 16:01 Temperature Pulse Rate 102 H 102 H 102 H Respiratory Rate 24 H 22 H 21 H Blood Pressure 138/95 H 147/96 H Pulse Oximetry 90 91 95 Oxygen Delivery 12/30/24 16:15 12/30/24 16:16 12/30/24 16:30 Temperature Pulse Rate 113 H 108 H 115 H Respiratory Rate 24 H 23 H 24 H Blood Pressure 158/91 H Pulse Oximetry 94 Oxygen Delivery 12/30/24 16:31 12/30/24 16:45 12/30/24 16:47 Temperature Pulse Rate 113 H 109 H 113 H Respiratory Rate 23 H 16 23 H Blood Pressure 157/95 H 130/78 Pulse Oximetry 95 94 90 Oxygen Delivery 12/30/24 17:00 12/30/24 17:01 12/30/24 17:15 Temperature Pulse Rate 104 H 110 H 103 H Respiratory Rate 16 14 13 Blood Pressure 109/78 Pulse Oximetry 90 91 Oxygen Delivery 12/30/24 17:16 12/30/24 17:30 12/30/24 17:31 Temperature Pulse Rate 101 H 103 H 103 H Respiratory Rate 14 15 18 Blood Pressure 113/78 123/88 Pulse Oximetry 96 90 93 Oxygen Delivery 12/30/24 17:45 12/30/24 17:46 12/30/24 18:00 Temperature Pulse Rate 98 91 103 H Respiratory Rate 17 17 13 Blood Pressure 128/82 Pulse Oximetry 93 90 93 Oxygen Delivery 12/30/24 18:01 12/30/24 18:15 12/30/24 18:16 Temperature Pulse Rate 108 H 103 H 107 H Respiratory Rate 13 15 15 Blood Pressure 130/81 145/86 H Pulse Oximetry 93 93 91 Oxygen Delivery 12/30/24 18:30 12/30/24 18:31 12/30/24 18:45 Temperature Pulse Rate 94 99 109 H Respiratory Rate 15 15 13 Blood Pressure 132/91 H Pulse Oximetry 93 92 91 Oxygen Delivery 12/30/24 18:46 12/30/24 19:00 12/30/24 19:01 Temperature Pulse Rate 103 H 104 H 102 H Respiratory Rate 13 16 12 Blood Pressure 144/89 H 147/99 H Pulse Oximetry 91 92 92 Oxygen Delivery 12/30/24 19:15 12/30/24 19:16 12/30/24 19:30 Temperature Pulse Rate 96 98 103 H Respiratory Rate 20 19 18 Blood Pressure 133/98 H Pulse Oximetry 96 96 95 Oxygen Delivery 12/30/24 19:31 12/30/24 19:45 12/30/24 19:46 Temperature Pulse Rate 101 H 101 H 100 Respiratory Rate 19 15 18 Blood Pressure 152/96 H 156/100 H Pulse Oximetry 96 94 92 Oxygen Delivery 12/30/24 20:00 12/30/24 20:01 12/30/24 20:15 Temperature Pulse Rate 103 H 101 H 97 Respiratory Rate 23 H 17 21 H Blood Pressure 146/96 H Pulse Oximetry 94 94 Oxygen Delivery 12/30/24 20:16 12/30/24 20:30 12/30/24 20:31 Temperature Pulse Rate 101 H 101 H 93 Respiratory Rate 19 12 10 L Blood Pressure 158/92 H 153/103 H Pulse Oximetry 95 94 94 Oxygen Delivery 12/30/24 20:45 12/30/24 20:46 12/30/24 21:00 Temperature Pulse Rate 95 99 104 H Respiratory Rate 17 13 18 Blood Pressure 140/102 H Pulse Oximetry 93 93 96 Oxygen Delivery 12/30/24 21:01 12/30/24 21:15 12/30/24 21:50 Temperature 36.9 C Pulse Rate 101 H 108 H 109 H Respiratory Rate 14 18 18 Blood Pressure 155/102 H 173/94 H Pulse Oximetry 94 94 97 Oxygen Delivery 12/30/24 22:00 12/31/24 00:00 12/31/24 00:00 Temperature Pulse Rate 108 H 89 Respiratory Rate Blood Pressure Pulse Oximetry 97 Oxygen Delivery Room Air 12/31/24 00:15 12/31/24 02:31 12/31/24 03:48 Temperature 36.7 C Pulse Rate 91 100 108 H Respiratory Rate 18 Blood Pressure 140/87 Pulse Oximetry 95 Oxygen Delivery 12/31/24 04:00 12/31/24 04:00 12/31/24 04:00 Temperature 36.7 C Pulse Rate 108 H 108 H Respiratory Rate 20 Blood Pressure 126/74 126/74 Pulse Oximetry 94 94 Oxygen Delivery Room Air 12/31/24 04:00 12/31/24 06:00 12/31/24 06:00 Temperature Pulse Rate 108 H 108 H 109 H Respiratory Rate Blood Pressure 151/89 H Pulse Oximetry 93 Oxygen Delivery 12/31/24 06:49 12/31/24 08:00 12/31/24 10:00 Temperature 36.3 C L Pulse Rate 108 H 112 H 126 H Respiratory Rate 24 H Blood Pressure 151/89 H 139/89 118/85 Pulse Oximetry 94 Oxygen Delivery Exam 2 Const: General: comfortable, no acute distress, alert and awake O rientation/consciousness: patient oriented x3 HENMT: Head: normal to inspection Eyes: General: appearance normal, both eyes and all related structures P upils: Equal, round and reactive pupils present Neck: Neck: normal visual inspection, supple and no JVD Carotids: normal carotid upstroke Resp: Effort & Inspection: normal respiratory effort Auscultation: not clear to auscultation bilaterally and rales Cardio: Rate: tachycardic Rhythm: abnormal rhythm regularly irregular H eart sounds: S1 normal heart sound present, S2 normal heart sound present and Murmur heart sound present systolic GI: Auscultation: normal bowel sounds Skin: General skin exam: normal color Neuro: General: patient oriented x3 Cranial nerves: Yes Equal, round and reactive pupils present Extrem: General: edema and pedal edema Psych: Appearance: grossly normal Mental Status: mental status grossly normal Results Labs and Meds 12/31/24 05:00 12/31/24 05:00 Lab results: Cardiac Enzymes 12/30/24 Range/Units 13:44 AST 22 (17-59) U/L Coagulation 12/30/24 Range/Units 13:44 PT 13.7 (11.1-14.7) Seconds APTT 29.6 (22.3-36.8) Seconds CBC 12/30/24 12/31/24 Range/Units 13:44 05:00 WBC 9.0 7.9 (4.5-10.0) K/mm3 RBC 4.82 4.63 (4.6-6.20) M/mm3 Hgb 14.2 13.6 L (14.0-18.0) g/dL Hct 45.1 42.8 (42.0-52.0) % Plt Count 281 238 (150-375) k/mm3 Lymph # (Auto) 1.04 (0.9-3.2) K/mm3 Carlton # (Auto) 0.6 (0.1-0.6) K/mm3 Eos # (Auto) 0.1 (0-0.3) K/mm3 Baso # (Auto) 0.0 (0.0-0.1) K/mm3 Comprehensive Metabolic Panel 12/30/24 12/31/24 Range/Units 13:44 05:00 Sodium 142 141 (137-145) mmol/L Potassium 3.7 3.3 L (3.4-5.0) mmol/L Chloride 107 108 H (98-107) mmol/L Carbon Dioxide 28 25 (22-30) mmol/L BUN 14 14 (9-20) mg/dL Creatinine 0.59 L 0.57 L (0.7-1.3) mg/dL Glucose 76 73 (65-110) mg/dL Calcium 9.1 8.6 (8.4-10.2) mg/dL AST 22 (17-59) U/L ALT 20 (6-50) U/L Alkaline Phosphatase 86 (38-126) U/L Total Protein 7.0 (6.3-8.2) g/dL Albumin 4.0 (3.5-5.1) g/dL Intake and Output 12/30/24 12/31/24 12/31/24 23:59 07:59 15:59 Intake Total 565.1 Output Total 700 Balance -134.9 Intake: IV 15.1 dilTIAZem 100 MG/100 ML 100 mg 15.1 In 100 ml @ 5 MG/HR 5 mls/hr IV CONT .Q20H [facility] Rx#:[id number] Oral 550 Output: Urine 700 Patient Weight 12/31/24 23:59 Weight 113.3 kg
[2024-12-31] MEDS: METOPROLOL SUCCINATE EXT REL 50 MG TABCR PO (10:25)
[2024-12-31 14:53] LABS: Glucose Point of Care 175 mg/dl (65-105)
--- NOTE | 2024-12-31 16:58 | PM.IMPN ---
Progress Note: A&P Assessment and Plan (1) Atrial flutter with rapid ventricular response: Code(s): I48.92 - Unspecified atrial flutter Status: Acute (2) COVID: Code(s): U07.1 - COVID-19 Status: Acute (3) Lower extremity edema: Code(s): R60.0 - Localized edema Status: Acute (4) Suspected sleep apnea: Code(s): R29.818 - Other symptoms and signs involving the nervous system Status: Acute (5) Coronary artery disease: Code(s): I25.10 - Atherosclerotic heart disease of council coronary artery without angina pectoris Status: Acute (6) Hypertension: Code(s): I10 - Essential (primary) hypertension Status: Acute (7) Insulin dependent type 2 diabetes mellitus: Code(s): E11.9 - Type 2 diabetes mellitus without complications; Z79.4 - continuous churn buttermaker (current) use of insulin Status: Acute (8) Tobacco dependence: Code(s): F17.200 - Nicotine dependence, unspecified, uncomplicated Status: Acute (9) Mild aortic stenosis: Code(s): I35.0 - Nonrheumatic aortic (valve) stenosis Status: Acute Plan Atrial flutter with RVR Continue Metoprolol continue Eliquis 5mg bid ECHO pending DCCV outpatient per cards Cardiology following Covid 19 not on oxygen monitor HTN continue home meds HLD continue statin CAD s/p stent Plavix, Eliquis DVT prophylaxis on Eliquis Subjective Date/time seen: 12/31/24 16:58 Interval history: Comfortable at bedside HR still elevated Review of Systems Review of Systems: 12 systems were reviewed and are negative except for as per HPI. Exam Narrative: General: Mildly ill-appearing gentleman sitting up in bed in no acute distress. Weight: 13.6 kg. BMI: 34.0. HEENT: PERRL, EOMI. Sclera anicteric. Oral mucosa moist. Oropharynx clear. Neck: Supple. No JVD or lymphadenopathy. Respiratory: Lungs are clear to auscultation bilaterally. Cardiovascular: Regular rate and rhythm. Systolic murmur at the upper sternal border and apex. Gastrointestinal: Abdomen is soft, nontender, and nondistended with positive bowel sounds. Delete Skin: Warm and dry. Shallow breath shins on the left anterior del valle. Extremities: No cyanosis or clubbing. Two to 3+ bilateral lower extremity edema up to the knees. No palpable knots or cords. Negative Mellissa sign bilaterally. Neurological: Alert. Cranial nerves 2-12 are grossly intact. No gross focal deficits to casual conversation. Psychiatric: Pleasant and cooperative with normal mood and affect. Judgment and insight intact. Objective Data Vital Signs Vital Signs: Vital Signs - 24 hr 12/30/24 17:00 12/30/24 17:01 12/30/24 17:15 Temperature Pulse Rate 104 H 110 H 103 H Respiratory Rate 16 14 13 Blood Pressure 109/78 Pulse Oximetry 90 91 Oxygen Delivery 12/30/24 17:16 12/30/24 17:30 12/30/24 17:31 Temperature Pulse Rate 101 H 103 H 103 H Respiratory Rate 14 15 18 Blood Pressure 113/78 123/88 Pulse Oximetry 96 90 93 Oxygen Delivery 12/30/24 17:45 12/30/24 17:46 12/30/24 18:00 Temperature Pulse Rate 98 91 103 H Respiratory Rate 17 17 13 Blood Pressure 128/82 Pulse Oximetry 93 90 93 Oxygen Delivery 12/30/24 18:01 12/30/24 18:15 12/30/24 18:16 Temperature Pulse Rate 108 H 103 H 107 H Respiratory Rate 13 15 15 Blood Pressure 130/81 145/86 H Pulse Oximetry 93 93 91 Oxygen Delivery 12/30/24 18:30 12/30/24 18:31 12/30/24 18:45 Temperature Pulse Rate 94 99 109 H Respiratory Rate 15 15 13 Blood Pressure 132/91 H Pulse Oximetry 93 92 91 Oxygen Delivery 12/30/24 18:46 12/30/24 19:00 12/30/24 19:01 Temperature Pulse Rate 103 H 104 H 102 H Respiratory Rate 13 16 12 Blood Pressure 144/89 H 147/99 H Pulse Oximetry 91 92 92 Oxygen Delivery 12/30/24 19:15 12/30/24 19:16 12/30/24 19:30 Temperature Pulse Rate 96 98 103 H Respiratory Rate 20 19 18 Blood Pressure 133/98 H Pulse Oximetry 96 96 95 Oxygen Delivery 12/30/24 19:31 12/30/24 19:45 12/30/24 19:46 Temperature Pulse Rate 101 H 101 H 100 Respiratory Rate 19 15 18 Blood Pressure 152/96 H 156/100 H Pulse Oximetry 96 94 92 Oxygen Delivery 12/30/24 20:00 12/30/24 20:01 12/30/24 20:15 Temperature Pulse Rate 103 H 101 H 97 Respiratory Rate 23 H 17 21 H Blood Pressure 146/96 H Pulse Oximetry 94 94 Oxygen Delivery 12/30/24 20:16 12/30/24 20:30 12/30/24 20:31 Temperature Pulse Rate 101 H 101 H 93 Respiratory Rate 19 12 10 L Blood Pressure 158/92 H 153/103 H Pulse Oximetry 95 94 94 Oxygen Delivery 12/30/24 20:45 12/30/24 20:46 12/30/24 21:00 Temperature Pulse Rate 95 99 104 H Respiratory Rate 17 13 18 Blood Pressure 140/102 H Pulse Oximetry 93 93 96 Oxygen Delivery 12/30/24 21:01 12/30/24 21:15 12/30/24 21:50 Temperature 98.4 F Pulse Rate 101 H 108 H 109 H Respiratory Rate 14 18 18 Blood Pressure 155/102 H 173/94 H Pulse Oximetry 94 94 97 Oxygen Delivery 12/30/24 22:00 12/31/24 00:00 12/31/24 00:00 Temperature Pulse Rate 108 H 89 Respiratory Rate Blood Pressure Pulse Oximetry 97 Oxygen Delivery Room Air 12/31/24 00:15 12/31/24 02:31 12/31/24 03:48 Temperature 98.0 F Pulse Rate 91 100 108 H Respiratory Rate 18 Blood Pressure 140/87 Pulse Oximetry 95 Oxygen Delivery 12/31/24 04:00 12/31/24 04:00 12/31/24 04:00 Temperature 98.0 F Pulse Rate 108 H 108 H Respiratory Rate 20 Blood Pressure 126/74 126/74 Pulse Oximetry 94 94 Oxygen Delivery Room Air 12/31/24 04:00 12/31/24 06:00 12/31/24 06:00 Temperature Pulse Rate 108 H 108 H 109 H Respiratory Rate Blood Pressure 151/89 H Pulse Oximetry 93 Oxygen Delivery 12/31/24 06:49 12/31/24 08:00 12/31/24 08:00 Temperature 97.4 F L Pulse Rate 108 H 112 H 112 H Respiratory Rate 24 H Blood Pressure 151/89 H 139/89 139/89 Pulse Oximetry 94 Oxygen Delivery 12/31/24 08:00 12/31/24 10:00 12/31/24 10:00 Temperature Pulse Rate 111 H 126 H 126 H Respiratory Rate Blood Pressure 118/85 118/85 Pulse Oximetry Oxygen Delivery 12/31/24 10:00 12/31/24 10:25 12/31/24 12:00 Temperature 97.5 F L Pulse Rate 127 H 126 H 109 H Respiratory Rate 20 Blood Pressure 130/90 Pulse Oximetry 94 Oxygen Delivery 12/31/24 12:00 12/31/24 12:00 12/31/24 13:38 Temperature Pulse Rate 109 H 96 109 H Respiratory Rate Blood Pressure 130/90 Pulse Oximetry Oxygen Delivery 12/31/24 14:00 12/31/24 14:14 12/31/24 16:00 Temperature 97.8 F Pulse Rate 110 H 110 H 108 H Respiratory Rate 20 Blood Pressure 112/63 112/63 127/89 Pulse Oximetry 94 Oxygen Delivery Intake/Output Intake/Output: Intake & Output 12/28/24 12/29/24 12/30/24 12/31/24 23:59 23:59 23:59 23:59 Intake Total 1082.2 Output Total 700 Balance 382.2 Meds/Results Medications: Active Medications Generic Name Dose Route Start Last Admin Trade Name Freq PRN Reason Stop Dose Admin Acetaminophen 650 mg 12/30/24 21:02 Acetaminophen 325 Mg Tablet PO Q6H PRN Mild Pain (1-3) or Fever Apixaban 5 mg 12/31/24 21:00 Apixaban 5 Mg Tablet PO Q12HR MIRNA Dextrose 12.5 gm 12/30/24 21:02 Dextrose 50% 25 Gm/50 Ml Syringe IV PUSH PRN PRN Hypoglycemia Protocol Glucagon 1 mg 12/30/24 21:02 Glucagon For Inj 1 Mg Vial IM PRN PRN Hypoglycemia Protocol Glucose 15 gm 12/30/24 21:02 Glucose Oral Gel 15 Gm Of Glucse In 37.5 Gm Tube PO PRN PRN Hypoglycemia Protocol Dextrose 1,000 mls @ 100 mls/hr 12/30/24 21:02 Dextrose 5% 1,000 Ml IVPB PRN PRN Hypoglycemia Protocol Remdesivir 100 mg in 250 mls @ 250 mls/hr 12/31/24 22:00 IVPB 01/03/25 22:59 Q24H MIRNA Diltiazem HCl 100 mg in 100 mls @ 5 mls/hr 12/31/24 03:25 12/31/24 14:14 Cardizem 100 Mg/100 Ml IV CONT 5 mg/hr .Q20H MIRNA 5 mls/hr Infusion 5 MG/HR Insulin Aspart 1 - 3 units 12/31/24 21:00 Insulin Aspart (*Bkc) 100 Units/Ml SUB-Q HS [facility] Protocol Insulin Aspart 3 - 6 units 12/31/24 08:00 12/31/24 12:52 Insulin Aspart (*Bkc) 100 Units/Ml SUB-Q Not Given TIDWM [facility] Protocol Metoprolol Succinate 50 mg 12/31/24 10:15 12/31/24 10:25 Metoprolol Succinate Ext Rel 50 Mg Tabcr PO 50 mg DAILY MIRNA Administration Perflutren Lipid Microsphere 0 ml 12/30/24 18:00 Perflutren Lipid Microspheres 1.5 Ml Vial Diluted To 10 Ml Total Volume IV PUSH 01/02/25 18:00 ONCE PRN adequate visualization Protocol Radiology Results: ITS Impressions Chest X-Ray 12/30/24 14:02 IMPRESSION: 1. Mild atelectasis at right lung base. Venous Doppler Study 12/30/24 21:21 IMPRESSION: Patent bilateral lower extremity veins. No evidence of deep venous thrombosis. Labs Labs: Laboratory Results - last 24 hr 12/30/24 12/31/24 12/31/24 13:44 05:00 08:14 WBC 7.9 RBC 4.63 Hgb 13.6 L Hct 42.8 MCV 92.4 MCH 29.4 MCHC 31.8 L RDW 15.3 H Plt Count 238 MPV 10.5 H Sodium 141 Potassium 3.3 L Chloride 108 H Carbon Dioxide 25 Anion Gap 8 BUN 14 Creatinine 0.57 L Estim Creat Clear Calc 144 Estimated GFR > 60 Glucose 73 POC Capillary Glucose 65 Hemoglobin A1c 8.5 H Calcium 8.6 Magnesium 1.8 TSH (Reflex) 1.920 12/31/24 12/31/24 08:56 12:46 WBC RBC Hgb Hct MCV MCH MCHC RDW Plt Count MPV Sodium Potassium Chloride Carbon Dioxide Anion Gap BUN Creatinine Estim Creat Clear Calc Estimated GFR Glucose POC Capillary Glucose 176 H 175 H Hemoglobin A1c Calcium Magnesium TSH (Reflex) Quality VTE Prophylaxis VTE prophylaxis: pharmacologic ordered
[2024-12-31 17:42] LABS: Glucose Point of Care 189 mg/dl (65-105)
--- NOTE | 2024-12-31 18:00 | ECHO_ITS ---
Patient Info Name: Ilan Lange Age: 64 years : 1960 Gender: Male Ht: 72 in Wt: 249 lbs BSA: 2.43 m2 HR: 112 bpm BP: 139 / 89 mmHg Technical Quality: Good Exam Date: 12/31/2024 11:37 AM Exam Location: Echo Lab Exam Room: [facility] Patient Status: Inpatient Admit Date: 12/30/2024 Staff Ordering Physician: Deanne Serrato PA-C Data Security Consultant: Attending Provider: Buddy Beauchamp MD Referring Physician: Rojelio GUY; Exam Type: CA echo doppler color flow Study Info Indications - Murmur, edema, afib Complete two-dimensional, color flow and Doppler transthoracic echocardiogram is performed. Summary 1. Left ventricular chamber dimension is normal. 2. Left ventricular systolic function is moderately reduced, estimated at 30-35%. 3. There is mildly increased left ventricular wall thickness. 4. Right ventricular chamber dimension is normal. 5. Right ventricular systolic function is reduced. 6. Left atrial chamber dimension is moderately enlarged. 7. Right atrial chamber dimension is moderately enlarged. 8. There is severe aortic valve calcification. 9. There is moderate to severe aortic valve stenosis with a peak velocity of 341 cm/s, mean gradient of 24 mmHg, and aortic valve area of 0.7 cm2. 10. There is mild mitral valve regurgitation. 11. The mitral valve annulus is severely calcified. 12. There is mild tricuspid valve regurgitation. Left Ventricle Left ventricular chamber dimension is normal. Left ventricular systolic function is moderately reduced, estimated at 30-35%. There is mildly increased left ventricular wall thickness. The left ventricular diastolic function is abnormal. Right Ventricle Right ventricular chamber dimension is normal. Right ventricular systolic function is reduced. Left Atria Left atrial chamber dimension is moderately enlarged. Right Atria Right atrial chamber dimension is moderately enlarged. Atrial Septum Intact interatrial septum visualized by color flow imaging. Aortic Valve There is moderate to severe aortic valve stenosis with a peak velocity of 341 cm/s, mean gradient of 24 mmHg, and aortic valve area of 0.7 cm2. There is no aortic valve regurgitation. There is severe aortic valve calcification. Pulmonic Valve The pulmonic valve is not well visualized. Mitral Valve There is mild mitral valve regurgitation. The mitral valve annulus is severely calcified. Tricuspid Valve There is mild tricuspid valve regurgitation. Pericardium/Pleural The pericardium appears epicardial fat pad. There is no pericardial effusion. Inferior Vena Cava Dilated inferior vena cava with <50% collapse upon inspiration consistent with elevated right atrial pressure, 15 mmHg. Aorta The aortic root size at the sinus of Valsalva is normal. Left Ventricular Outflow Tract Name Value Normal LVOT 2D LVOT Diameter 2.1 cm LVOT Doppler LVOT Peak Gradient 2 mmHg LVOT Mean Gradient 1 mmHg LVOT VTI 12 cm LVOT VTI/AV VTI Ratio 0.2 LVOT Stroke Volume 43 ml LVOT CO 3.9 l/min LVOT CI 1.6 l/min/m2 Pulmonic Valve Name Value Normal PV Doppler PV Peak Gradient 3 mmHg Mitral Valve Name Value Normal MV Doppler MV Peak Gradient 9 mmHg MV Mean Gradient 3 mmHg MV Decel Knox 1,057 cm/s2 MV PHT 43 ms MV Area (PHT) 5.2 cm2 4.0-5.0 MV Area (Cont Eq VTI) 1.4 cm2 MV Regurgitation Doppler MR Peak Gradient 111 mmHg MV Diastolic Function MV E Peak Velocity 155 cm/s MV A Peak Velocity 53 cm/s MV E/A 2.9 MV Decel Time 147 ms MV Annular TDI MV E/e' (Septal) 29.4 <=8.0 MV E/e' (Lateral) 21.7 <=8.0 MV E/e' (Average) 25.6 Tricuspid Valve Name Value Normal TV Regurgitation Doppler TR Peak Velocity 407 cm/s TR Peak Gradient 43 mmHg Estimated PAP/RSVP RA Pressure 15 mmHg <=5 PA Systolic Pressure 81 mmHg <36 RV Systolic Pressure 81 mmHg <36 Aortic Valve Name Value Normal AV Doppler AV Peak Velocity 341 cm/s AV Peak Gradient 38 mmHg AV Mean Gradient 24 mmHg AV VTI 65 cm AV Area (Cont Eq VTI) 0.7 cm2 >=3.0 AV Area (Cont Eq Shree) 0.7 cm2 AV Regurgitation 2D LVOT Area 3.5 cm2 Ventricles Name Value Normal LV Dimensions 2D/MM IVS Diastolic Thickness (2D) 1.2 cm 0.6-1.0 LVID Diastole (2D) 4.7 cm 4.2-5.8 LVIW Diastolic Thickness (2D) 1.2 cm 0.6-1.0 LVID Systole (2D) 4.3 cm 2.5-4.0 LVOT Diameter 2.1 cm LV Mass (2D Cubed) 211.07 g 88.00-224.00 LV Mass Index (2D Cubed) 87 g/m2 49-115 Relative Wall Thickness (2D) 0.50 LV Fractional Shortening/Ejection Fraction 2D/MM LV Fractional Shortening (2D) 8 % 25-43 LV EF (2D Teicholz) 19 % 52-72 LV Diastolic Volume (4C MOD) 152 ml LV EF (4C MOD) 41 % LV Diastolic Volume (2C MOD) 170 ml LV EF (2C MOD) 45 % LV Diastolic Volume (BP MOD) 161 ml 62-150 LV Diastolic Volume Index (BP MOD) 66 ml/m2 34-74 LV Systolic Volume (BP MOD) 93 ml 21-61 LV Systolic Volume Index (BP MOD) 38 ml/m2 11-31 LV EF (BP MOD) 42 % 52-72 LV Diastolic Length (4C) 9.0 cm LV Systolic Length (4C) 8.6 cm LV Stroke Volume (4C MOD) 62 ml LV CO (BP MOD) 7.4 l/min LV CI (BP MOD) 3.0 l/min/m2 Atria Name Value Normal LA Dimensions LA Volume (4C A-L) 110 ml LA Volume (BP A-L) 112 ml RA Dimensions RA Area (4C) 21.8 cm2 <=18.0 Report Signatures
[2024-12-31] MEDS: APIXABAN 5 MG TABLET PO (20:52)
[2024-12-31] MEDS: REMDESIVIR 100 MG/NS 250 ML 100 MG/250 ML BAG 250 MG IVPB (21:36)
[2024-12-31] MEDS: INSULIN ASPART (*BKC) 100 UNITS/ML SUB-Q (22:39)
[2024-12-31 23:14] LABS: Glucose Point of Care 205 mg/dl (65-105)
--- NOTE | 2024-12-31 23:30 | PCRCNOTE ---
Unable to perform Apnea Link tonight due to pt is on a Cardiac drip per RN.
[2025-01-01] VITALS (21 sets, daily range): BP systolic 118–159; BP diastolic 67–100; PULSE 76–134; RESP 16–20; TEMP 36.2–36.6; O2SAT 94–97
--- NOTE | 2025-01-01 01:46 | PC.NURSE ---
Received orders from Dr. De La Rosa to [place] diltiazem consuelo.
[2025-01-01 05:44] LABS: Basophils Percent Auto 0.3 % (0.2-1.2); Eosinophils Absolute Auto 0.1 K/mm3 (0-0.3); Eosinophils Percent Auto 1.3 % (0-4.4); Hematocrit 42.1 % (42.0-52.0); Hemoglobin 13.5 g/dL (14.0-18.0); Immature Granulocyte Absolute 0.01 K/mm3 (0.00-0.031); Immature Granulocyte Percent A 0.2 % (0-0.5); Lymphocytes Absolute Auto 0.93 K/mm3 (0.9-3.2); Lymphocytes Percent Auto 15.2 % (18.3-44.2); Mean Corpuscular HGB Conc 32.1 g/dl (32-36); Mean Corpuscular Hemoglobin 29.2 pg (26-34); Mean Corpuscular Volume 91.1 fl (80-100); Mean Platelet Volume 10.3 fl (7.4-10.4); Monocytes Absolute Auto 0.7 K/mm3 (0.1-0.6); Monocytes Percent Auto 10.9 % (2.6-8.5); Neutrophils Absolute Auto 4.4 K/mm3 (1.3-6.7); Neutrophils Percent Auto 72.1 % (45.5-73.1); Platelet Count Result 241 k/mm3 (150-375); Red Blood Count 4.62 M/mm3 (4.6-6.20); Red Cell Distribution Width 15.1 % (11.5-14.5); White Blood Count 6.1 K/mm3 (4.5-10.0)
[2025-01-01 05:59] LABS: Alanine Aminotransferase 16 U/L (6-50); Albumin Level 3.2 g/dL (3.5-5.1); Alkaline Phosphatase 74 U/L (38-126); Anion Gap 6 mmol/L (4-12); Aspartate Amino Transferase 18 U/L (17-59); Bilirubin,Total 0.6 mg/dL (0.2-1.3); Blood Urea Nitrogen 11 mg/dL (9-20); Calcium 8.8 mg/dL (8.4-10.2); Carbon Dioxide 26 mmol/L (22-30); Chloride 108 mmol/L (98-107); Estimated CRCL calculation 133 ml/min; Estimated Glomerular Filt Rate > 60; Glucose 90 mg/dL (65-110); Magnesium 1.9 mg/dL (1.6-2.3); Potassium 3.6 mmol/L (3.4-5.0); Sodium 140 mmol/L (137-145)
[2025-01-01 05:59] LABS: Alanine Aminotransferase 17 U/L (6-50); Albumin Level 3.2 g/dL (3.5-5.1); Alkaline Phosphatase 72 U/L (38-126); Aspartate Amino Transferase 18 U/L (17-59); Bilirubin,Total 0.6 mg/dL (0.2-1.3); Lactic Acid Reflex 0.7 mmol/L (0.7-2.0)
[2025-01-01 06:00] LABS: INR 1.1; Prothrombin Time 14.8 Seconds (11.1-14.7)
[2025-01-01 08:15] LABS: Glucose Point of Care 93 mg/dl (65-105)
[2025-01-01] MEDS: APIXABAN 5 MG TABLET PO ×2 (08:21→22:25)
[2025-01-01] MEDS: METOPROLOL SUCCINATE EXT REL 50 MG TABCR PO ×2 (08:21→12:20)
[2025-01-01] MEDS: METOPROLOL TARTRATE INJ 5 MG/5 ML VIAL IV PUSH (10:44)
--- NOTE | 2025-01-01 11:52 | P.PNCA_ITS ---
Progress Note: A&P Assessment and Plan (1) Atrial flutter with rapid ventricular response: Code(s): I48.92 - Unspecified atrial flutter Status: Acute Plan 1. Atrial flutter / atrial fibrillation with RVR. New diagnosis in setting of COVID. 2. Acute heart failure with reduced LVEF of 30-35% per TTE 12/31/2024. New diagnosis of LV systolic dysfunction in setting of COVID, atrial fibrillation/atrial flutter with RVR 3. COVID infection 4. Moderate-severe aortic stenosis 5. Coronary artery disease s/p PCI 6. Hypertension 7. Hyperlipidemia 8. Diabetes mellitus PLAN: -Will increase Toprol to 100mg once daily to optimize rate control. Avoid Diltiazem given reduced LVEF. -Continue Eliquis 5mg BID. -Can consider outpatient cardioversion after patient has been on anticoagulation for at least 4 weeks. -Discussed echo findings with the patient. LV systolic dysfunction may be tachycardia mediated. Has not received home med Lisinopril since admission on 12/30, therefore, will start Entresto. Start Spironolactone. Start Jardiance. Continue Toprol. Has lower extremity edema on exam. Will give one time dose of IV Lasix and assess response. -Continue high intensity statin. -Continue Plavix 75mg once daily. Will not be resuming ASA as we have started Eliquis (avoiding triple therapy). -Regarding his aortic stenosis, appears to be moderate-severe on echo, which was noted on past echocardiogram. However, cardiac catheterization done in November 2023 showed findings more consistent with mild . Outpatient follow up with Dr. Reich. -Management of COVID as per Hospitalist. On Remdesivir. Patient has appointment with Dr. Reich scheduled for 01/06/2025. Will keep this appointment. Recommendations and plan discussed with Hospitalist. Subjective Date/time seen: 01/01/25 11:52 Interval history: Reason for visit: Atrial flutter with RVR HPI: Ilan Lange is a 62-year-old man with coronary disease, history of aggressive PCI with rotational atherectomy and stenting of the proximal half of the LAD in 2009. He also is known to have aortic valve stenosis which was found to be mild by left heart cath in 2023. He comes to the hospital with complaints of shortness of breath, lower extremity swelling. He is found to be positive for COVID. EKG and telemetry demonstrate atrial fibrillation with rapid ventricular response. He does report feeling racing heartbeat occasionally but generally he is asymptomatic. He does not have any history of any cardiac arrhythmias. Date of service 01/01: He reports feeling okay. Has been having lower extremity edema over the past two weeks or so. Heart rates in the low 100s. Review of Systems Review of Systems: All systems reviewed & are unremarkable except as noted in HPI and below (HPI) Exam Const: General: comfortable and no acute distress HENMT: Mouth: Yes moist mucous membranes Eyes: General: appearance normal, both eyes and all related structures Sclera: sclerae normal Resp: Effort & Inspection: normal respiratory effort Cardio: Rate: tachycardic Rhythm: regular rhythm Other: Mild bilateral lower extremity edema Skin: General skin exam: normal color Neuro: Speech: normal speech Psych: Mental Status: mental status grossly normal Affect: normal affect Objective Data Vital Signs Vital Signs: Vital Signs - 24 hr 12/31/24 12:00 12/31/24 12:00 12/31/24 12:00 Temperature 36.4 C L Pulse Rate 109 H 109 H 96 Respiratory Rate 20 Blood Pressure 130/90 130/90 Pulse Oximetry 94 Oxygen Delivery 12/31/24 13:38 12/31/24 14:00 12/31/24 14:14 Temperature Pulse Rate 109 H 110 H 110 H Respiratory Rate Blood Pressure 112/63 112/63 Pulse Oximetry Oxygen Delivery 12/31/24 16:00 12/31/24 16:00 12/31/24 18:00 Temperature 36.6 C Pulse Rate 108 H 108 H 105 H Respiratory Rate 20 Blood Pressure 127/89 127/89 Pulse Oximetry 94 Oxygen Delivery 12/31/24 18:00 12/31/24 18:00 12/31/24 20:00 Temperature Pulse Rate 91 98 90 Respiratory Rate Blood Pressure 137/78 137/78 Pulse Oximetry Oxygen Delivery 12/31/24 20:00 12/31/24 20:56 12/31/24 22:00 Temperature 36.6 C Pulse Rate 89 89 91 Respiratory Rate 20 Blood Pressure 126/76 126/76 135/86 Pulse Oximetry 94 Oxygen Delivery 12/31/24 22:18 12/31/24 22:35 01/01/25 00:00 Temperature 36.6 C Pulse Rate 91 88 76 Respiratory Rate 20 Blood Pressure 135/86 126/76 Pulse Oximetry 94 Oxygen Delivery 01/01/25 00:00 01/01/25 00:00 01/01/25 01:55 Temperature Pulse Rate 87 76 87 Respiratory Rate Blood Pressure 126/76 118/67 Pulse Oximetry 95 Oxygen Delivery 01/01/25 02:00 01/01/25 03:56 01/01/25 04:00 Temperature 36.6 C Pulse Rate 87 87 103 H Respiratory Rate 20 Blood Pressure 132/74 Pulse Oximetry 97 Oxygen Delivery 01/01/25 06:00 01/01/25 08:00 01/01/25 08:00 Temperature 36.3 C L Pulse Rate 105 H 109 H Respiratory Rate 20 Blood Pressure 145/90 H Pulse Oximetry 94 94 Oxygen Delivery Room Air 01/01/25 08:21 01/01/25 10:44 01/01/25 10:44 Temperature Pulse Rate 130 H 116 H 115 H Respiratory Rate Blood Pressure 159/100 H Pulse Oximetry Oxygen Delivery Intake/Output Intake/Output: Intake & Output 12/29/24 12/30/24 12/31/24 01/01/25 23:59 23:59 23:59 23:59 Intake Total 1671.0 999 Output Total 1650 1300 Balance 21.0 -301 Meds/Results Medications: Active Medications Generic Name Dose Route Start Last Admin Trade Name Freq PRN Reason Stop Dose Admin Acetaminophen 650 mg 12/30/24 21:02 Acetaminophen 325 Mg Tablet PO Q6H PRN Mild Pain (1-3) or Fever Apixaban 5 mg 12/31/24 21:00 01/01/25 08:21 Apixaban 5 Mg Tablet PO 5 mg Q12HR MIRNA Administration Atorvastatin Calcium 40 mg 01/01/25 11:55 Atorvastatin 40 Mg Tablet PO DAILY MIRNA Clopidogrel Bisulfate 75 mg 01/01/25 11:55 Clopidogrel Bisulfate 75 Mg Tablet PO QAM MIRNA Dextrose 12.5 gm 12/30/24 21:02 Dextrose 50% 25 Gm/50 Ml Syringe IV PUSH PRN PRN Hypoglycemia Protocol Empagliflozin 10 mg 01/01/25 11:55 Empagliflozin 10 Mg Tablet PO DAILY MIRNA Furosemide 40 mg 01/01/25 12:00 Furosemide Inj 40 Mg/4 Ml Vial IV PUSH 01/01/25 12:01 ONCE ONE Glucagon 1 mg 12/30/24 21:02 Glucagon For Inj 1 Mg Vial IM PRN PRN Hypoglycemia Protocol Glucose 15 gm 12/30/24 21:02 Glucose Oral Gel 15 Gm Of Glucse In 37.5 Gm Tube PO PRN PRN Hypoglycemia Protocol Dextrose 1,000 mls @ 100 mls/hr 12/30/24 21:02 Dextrose 5% 1,000 Ml IVPB PRN PRN Hypoglycemia Protocol Remdesivir 100 mg in 250 mls @ 250 mls/hr 12/31/24 22:00 12/31/24 21:36 IVPB 01/03/25 22:59 250 mls/hr Q24H [facility] Administration Insulin Aspart 1 - 3 units 12/31/24 21:00 12/31/24 22:39 Insulin Aspart (*Bkc) 100 Units/Ml SUB-Q 1 units HS [facility] Administration Protocol Insulin Aspart 3 - 6 units 12/31/24 08:00 01/01/25 08:20 Insulin Aspart (*Bkc) 100 Units/Ml SUB-Q Not Given TIDWM [facility] Protocol Metoprolol Succinate 100 mg 01/02/25 09:00 Metoprolol Succinate Ext Rel [address] [facility] Metoprolol Succinate 50 mg 01/01/25 11:48 Metoprolol Succinate Ext Rel 50 Mg Tabcr PO 01/01/25 11:49 ONCE ONE Perflutren Lipid Microsphere 0 ml 12/30/24 18:00 Perflutren Lipid Microspheres 1.5 Ml Vial Diluted To 10 Ml Total Volume IV PUSH 01/02/25 18:00 ONCE PRN adequate visualization Protocol Sacubitril/Valsartan 1 tab 01/01/25 21:00 Sacubitril/Valsartan 24-26 Mg Tablet PO Q12HR [facility] Spironolactone 25 mg 01/01/25 11:55 Spironolactone 25 Mg Tablet PO QAM [facility] Radiology Results: ITS Impressions Chest X-Ray 12/30/24 14:02 IMPRESSION: 1. Mild atelectasis at right lung base. Venous Doppler Study 12/30/24 21:21 IMPRESSION: Patent bilateral lower extremity veins. No evidence of deep venous thrombosis. Labs Labs: Laboratory Results - last 24 hr 12/31/24 12/31/24 12/31/24 12:46 16:35 20:42 WBC RBC Hgb Hct MCV MCH MCHC RDW Plt Count MPV Immature Gran % (Auto) Neut % (Auto) Lymph % (Auto) [place] % (Auto) Eos % (Auto) Baso % (Auto) Lymph # (Auto) [facility] # (Auto) Eos # (Auto) Baso # (Auto) Abs Immat Gran (auto) Absolute Neuts (auto) Absolute Nucleated RBC Nucleated RBC % PT INR Sodium Potassium Chloride Carbon Dioxide Anion Gap BUN Creatinine Estim Creat Clear Calc Estimated GFR Glucose POC Capillary Glucose 175 H 189 H 205 H Lactic Acid Calcium Magnesium Total Bilirubin Direct Bilirubin AST ALT Alkaline Phosphatase Total Protein Albumin 01/01/25 01/01/25 01/01/25 05:34 05:35 08:00 WBC 6.1 RBC 4.62 Hgb 13.5 L Hct 42.1 MCV 91.1 MCH 29.2 MCHC 32.1 RDW 15.1 H Plt Count 241 MPV 10.3 Immature Gran % (Auto) 0.2 Neut % (Auto) 72.1 Lymph % (Auto) 15.[address] [place] % (Auto) 10.9 H Eos % (Auto) 1.3 Baso % (Auto) 0.3 Lymph # (Auto) 0.93 [facility] # (Auto) 0.7 H Eos # (Auto) 0.1 Baso # (Auto) 0.0 Abs Immat Gran (auto) 0.01 Absolute Neuts (auto) 4.4 Absolute Nucleated RBC 0.000 Nucleated RBC % 0.0 PT 14.8 H INR 1.1 Sodium 140 Potassium 3.6 Chloride 108 H Carbon Dioxide 26 Anion Gap 6 BUN 11 Creatinine 0.61 L Estim Creat Clear Calc 133 Estimated GFR > 60 Glucose 90 POC Capillary Glucose 93 Lactic Acid 0.7 Calcium 8.8 Magnesium 1.9 Total Bilirubin 0.6 0.6 Direct Bilirubin 0.0 AST 18 18 ALT 17 16 Alkaline Phosphatase 72 74 Total Protein 6.0 L 6.0 L Albumin 3.2 L 3.2 L
[2025-01-01] MEDS: EMPAGLIFLOZIN 10 MG TABLET PO (12:20)
[2025-01-01] MEDS: FUROSEMIDE INJ 40 MG/4 ML VIAL IV PUSH (12:20)
[2025-01-01] MEDS: ATORVASTATIN 40 MG TABLET PO (12:20)
[2025-01-01] MEDS: SPIRONOLACTONE 25 MG TABLET PO (12:20)
[2025-01-01] MEDS: CLOPIDOGREL BISULFATE 75 MG TABLET PO (12:20)
--- NOTE | 2025-01-01 16:40 | PM.IMPN ---
Progress Note: A&P Assessment and Plan (1) Atrial flutter with rapid ventricular response: Code(s): I48.92 - Unspecified atrial flutter Status: Acute (2) COVID: Code(s): U07.1 - COVID-19 Status: Acute (3) Lower extremity edema: Code(s): R60.0 - Localized edema Status: Acute (4) Suspected sleep apnea: Code(s): R29.818 - Other symptoms and signs involving the nervous system Status: Acute (5) Coronary artery disease: Code(s): I25.10 - Atherosclerotic heart disease of [place] coronary artery without angina pectoris Status: Acute (6) Hypertension: Code(s): I10 - Essential (primary) hypertension Status: Acute (7) Insulin dependent type 2 diabetes mellitus: Code(s): E11.9 - Type 2 diabetes mellitus without complications; Z79.4 - watermaster (current) use of insulin Status: Acute (8) Tobacco dependence: Code(s): F17.200 - Nicotine dependence, unspecified, uncomplicated Status: Acute (9) Mild aortic stenosis: Code(s): I35.0 - Nonrheumatic aortic (valve) stenosis Status: Acute Plan Atrial flutter with RVR Continue Metoprolol at 100mg daily, Eliquis ECHO EF 30-35% DCCV outpatient per cards Cardiology following Acute systolic heart failure ECHO showed EF 30-35% Continue Entresto, Spironolactone, Jardiance and Metoprolol Cardiology following Covid 19 not on oxygen Continue Remdesivir monitor HTN continue home meds HLD continue statin CAD s/p stent Plavix, Eliquis DM2 SSi and accucheks, Jardiance DVT prophylaxis on Eliquis Subjective Date/time seen: 01/01/25 16:40 Interval history: Comfortable at bedside HR as in 120 - 130s at the time of this encounter in the morning Cardiology adjusted Metoprolol to 100mg daily and started on Jardiance, Entresto and Spironolactone Review of Systems Review of Systems: 12 systems were reviewed and are negative except for as per HPI. Exam Narrative: General: Mildly ill-appearing gentleman sitting up in bed in no acute distress. Weight: 13.6 kg. BMI: 34.0. HEENT: PERRL, EOMI. Sclera anicteric. Oral mucosa moist. Oropharynx clear. Neck: Supple. No JVD or lymphadenopathy. Respiratory: Lungs are clear to auscultation bilaterally. Cardiovascular: Regular rate and rhythm. Systolic murmur at the upper sternal border and apex. Gastrointestinal: Abdomen is soft, nontender, and nondistended with positive bowel sounds. Delete Skin: Warm and dry. Shallow breath shins on the left anterior [place]. Extremities: No cyanosis or clubbing. Two to 3+ bilateral lower extremity edema up to the knees. No palpable knots or cords. Negative Mellissa sign bilaterally. Neurological: Alert. Cranial nerves 2-12 are grossly intact. No gross focal deficits to casual conversation. Psychiatric: Pleasant and cooperative with normal mood and affect. Judgment and insight intact. Objective Data Vital Signs Vital Signs: Vital Signs - 24 hr 12/31/24 18:00 12/31/24 18:00 12/31/24 18:00 Temperature Pulse Rate 105 H 91 98 Respiratory Rate Blood Pressure 137/78 137/78 Pulse Oximetry Oxygen Delivery 12/31/24 20:00 12/31/24 20:00 12/31/24 20:56 Temperature 97.8 F Pulse Rate 90 89 89 Respiratory Rate 20 Blood Pressure 126/76 126/76 Pulse Oximetry 94 Oxygen Delivery 12/31/24 22:00 12/31/24 22:18 12/31/24 22:35 Temperature Pulse Rate 91 91 88 Respiratory Rate Blood Pressure 135/86 135/86 Pulse Oximetry Oxygen Delivery 01/01/25 00:00 01/01/25 00:00 01/01/25 00:00 Temperature 97.8 F Pulse Rate 76 87 76 Respiratory Rate 20 Blood Pressure 126/76 126/76 Pulse Oximetry 94 Oxygen Delivery 01/01/25 01:55 01/01/25 02:00 01/01/25 03:56 Temperature 97.8 F Pulse Rate 87 87 87 Respiratory Rate 20 Blood Pressure 118/67 132/74 Pulse Oximetry 95 97 Oxygen Delivery 01/01/25 04:00 01/01/25 06:00 01/01/25 08:00 Temperature 97.4 F L Pulse Rate 103 H 105 H 109 H Respiratory Rate 20 Blood Pressure 145/90 H Pulse Oximetry 94 Oxygen Delivery 01/01/25 08:00 01/01/25 08:00 01/01/25 08:21 Temperature Pulse Rate 106 H 130 H Respiratory Rate Blood Pressure Pulse Oximetry 94 Oxygen Delivery Room Air 01/01/25 10:00 01/01/25 10:44 01/01/25 10:44 Temperature Pulse Rate 134 H 116 H 115 H Respiratory Rate Blood Pressure 159/100 H Pulse Oximetry Oxygen Delivery 01/01/25 11:50 01/01/25 12:00 01/01/25 12:20 Temperature 97.2 F L Pulse Rate 106 H 110 H 106 H Respiratory Rate 20 Blood Pressure 129/88 Pulse Oximetry 96 Oxygen Delivery 01/01/25 14:00 01/01/25 15:54 Temperature 97.8 F Pulse Rate 115 H 107 H Respiratory Rate 20 Blood Pressure 124/76 Pulse Oximetry 95 Oxygen Delivery Intake/Output Intake/Output: Intake & Output 12/29/24 12/30/24 12/31/24 01/01/25 23:59 23:59 23:59 23:59 Intake Total 1671.0 1239 Output Total 1650 1300 Balance 21.0 -61 Meds/Results Medications: Active Medications Generic Name Dose Route Start Last Admin Trade Name Freq PRN Reason Stop Dose Admin Acetaminophen 650 mg 12/30/24 21:02 Acetaminophen 325 Mg Tablet PO Q6H PRN Mild Pain (1-3) or Fever Apixaban 5 mg 12/31/24 21:00 01/01/25 08:21 Apixaban 5 Mg Tablet PO 5 mg Q12HR MIRNA Administration Atorvastatin Calcium 40 mg 01/01/25 11:55 01/01/25 12:20 Atorvastatin 40 Mg Tablet PO 40 mg DAILY MIRNA Administration Clopidogrel Bisulfate 75 mg 01/01/25 11:55 01/01/25 12:20 Clopidogrel Bisulfate 75 Mg Tablet PO 75 mg QAM MIRNA Administration Dextrose 12.5 gm 12/30/24 21:02 Dextrose 50% 25 Gm/50 Ml Syringe IV PUSH PRN PRN Hypoglycemia Protocol Empagliflozin 10 mg 01/01/25 11:55 01/01/25 12:20 Empagliflozin 10 Mg Tablet PO 10 mg DAILY MIRNA Administration Glucagon 1 mg 12/30/24 21:02 Glucagon For Inj 1 Mg Vial IM PRN PRN Hypoglycemia Protocol Glucose 15 gm 12/30/24 21:02 Glucose Oral Gel 15 Gm Of Glucse In 37.5 Gm Tube PO PRN PRN Hypoglycemia Protocol Dextrose 1,000 mls @ 100 mls/hr 12/30/24 21:02 Dextrose 5% 1,000 Ml IVPB PRN PRN Hypoglycemia Protocol Remdesivir 100 mg in 250 mls @ 250 mls/hr 12/31/24 22:00 12/31/24 21:36 IVPB 01/03/25 22:59 250 mls/hr Q24H [facility] Administration Insulin Aspart 1 - 3 units 12/31/24 21:00 12/31/24 22:39 Insulin Aspart (*Bkc) 100 Units/Ml SUB-Q 1 units HS [facility] Administration Protocol Insulin Aspart 3 - 6 units 12/31/24 08:00 01/01/25 16:33 Insulin Aspart (*Bkc) 100 Units/Ml SUB-Q Not Given TIDWM [facility] Protocol Metoprolol Succinate 100 mg 01/02/25 09:00 Metoprolol Succinate Ext Rel 100 Mg Tabcr PO QAM [facility] Perflutren Lipid Microsphere 0 ml 12/30/24 18:00 Perflutren Lipid Microspheres 1.5 Ml Vial Diluted To 10 Ml Total Volume IV PUSH 01/02/25 18:00 ONCE PRN adequate visualization Protocol Sacubitril/Valsartan 1 tab 01/01/25 21:00 Sacubitril/Valsartan 24-26 Mg Tablet PO Q12HR [facility] Spironolactone 25 mg 01/01/25 11:55 01/01/25 12:20 Spironolactone 25 Mg Tablet PO 25 mg QAM MIRNA Administration Radiology Results: ITS Impressions Chest X-Ray 12/30/24 14:02 IMPRESSION: 1. Mild atelectasis at right lung base. Venous Doppler Study 12/30/24 21:21 IMPRESSION: Patent bilateral lower extremity veins. No evidence of deep venous thrombosis. Labs Labs: Laboratory Results - last 24 hr 12/31/24 12/31/24 01/01/25 16:35 20:42 05:34 WBC 6.1 RBC 4.62 Hgb 13.5 L Hct 42.1 MCV 91.1 MCH 29.2 MCHC 32.1 RDW 15.1 H Plt Count 241 MPV 10.3 Immature Gran % (Auto) 0.2 Neut % (Auto) 72.1 Lymph % (Auto) 15.[address] [place] % (Auto) 10.9 H Eos % (Auto) 1.3 Baso % (Auto) 0.3 Lymph # (Auto) 0.93 [place] # (Auto) 0.7 H Eos # (Auto) 0.1 Baso # (Auto) 0.0 Abs Immat Gran (auto) 0.01 Absolute Neuts (auto) 4.4 Absolute Nucleated RBC 0.000 Nucleated RBC % 0.0 PT 14.8 H INR 1.1 Sodium Potassium Chloride Carbon Dioxide Anion Gap BUN Creatinine Estim Creat Clear Calc Estimated GFR Glucose POC Capillary Glucose 189 H 205 H Lactic Acid 0.7 Calcium Magnesium Total Bilirubin 0.6 Direct Bilirubin 0.0 AST 18 ALT 17 Alkaline Phosphatase 72 Total Protein 6.0 L Albumin 3.2 L 01/01/25 01/01/25 05:35 08:00 WBC RBC Hgb Hct MCV MCH MCHC RDW Plt Count MPV Immature Gran % (Auto) Neut % (Auto) Lymph % (Auto) [place] % (Auto) Eos % (Auto) Baso % (Auto) Lymph # (Auto) [place] # (Auto) Eos # (Auto) Baso # (Auto) Abs Immat Gran (auto) Absolute Neuts (auto) Absolute Nucleated RBC Nucleated RBC % PT INR Sodium 140 Potassium 3.6 Chloride 108 H Carbon Dioxide 26 Anion Gap 6 BUN 11 Creatinine 0.61 L Estim Creat Clear Calc 133 Estimated GFR > 60 Glucose 90 POC Capillary Glucose 93 Lactic Acid Calcium 8.8 Magnesium 1.9 Total Bilirubin 0.6 Direct Bilirubin AST 18 ALT 16 Alkaline Phosphatase 74 Total Protein 6.0 L Albumin 3.2 L Quality VTE Prophylaxis VTE prophylaxis: pharmacologic ordered
[2025-01-01 16:50] LABS: Glucose Point of Care 148 mg/dl (65-105)
[2025-01-01 16:50] LABS: Glucose Point of Care 151 mg/dl (65-105)
[2025-01-01 20:50] LABS: Glucose Point of Care 240 mg/dl (65-105)
[2025-01-01] MEDS: INSULIN ASPART (*BKC) 100 UNITS/ML SUB-Q (22:25)
[2025-01-01] MEDS: SACUBITRIL/VALSARTAN 24-26 MG TABLET 1 TAB PO (22:25)
[2025-01-01] MEDS: REMDESIVIR 100 MG/NS 250 ML 100 MG/250 ML BAG 250 MG IVPB (22:25)
--- NOTE | 2025-01-01 22:55 | PCRCNOTE ---
Apnea LINK not conducted because the RN said that she has antibiotics that have to be administered throughout the night.
[2025-01-02] VITALS (22 sets, daily range): BP systolic 127–152; BP diastolic 58–98; PULSE 86–134; RESP 16–20; TEMP 36.4–36.9; O2SAT 91–97
[2025-01-02 06:01] LABS: Basophils Percent Auto 0.2 % (0.2-1.2); Eosinophils Absolute Auto 0.1 K/mm3 (0-0.3); Eosinophils Percent Auto 0.9 % (0-4.4); Hematocrit 44.6 % (42.0-52.0); Immature Granulocyte Absolute 0.03 K/mm3 (0.00-0.031); Immature Granulocyte Percent A 0.4 % (0-0.5); Lymphocytes Absolute Auto 0.83 K/mm3 (0.9-3.2); Lymphocytes Percent Auto 9.7 % (18.3-44.2); Mean Corpuscular HGB Conc 31.4 g/dl (32-36); Mean Corpuscular Hemoglobin 28.7 pg (26-34); Mean Corpuscular Volume 91.4 fl (80-100); Mean Platelet Volume 10.4 fl (7.4-10.4); Monocytes Absolute Auto 0.9 K/mm3 (0.1-0.6); Neutrophils Absolute Auto 6.8 K/mm3 (1.3-6.7); Neutrophils Percent Auto 78.8 % (45.5-73.1); Platelet Count Result 267 k/mm3 (150-375); Red Blood Count 4.88 M/mm3 (4.6-6.20); Red Cell Distribution Width 14.9 % (11.5-14.5); White Blood Count 8.6 K/mm3 (4.5-10.0)
[2025-01-02 06:07] LABS: Potassium 4.1 mmol/L (3.4-5.0)
[2025-01-02 06:15] LABS: Alanine Aminotransferase 17 U/L (6-50); Albumin Level 3.4 g/dL (3.5-5.1); Alkaline Phosphatase 83 U/L (38-126); Anion Gap 7 mmol/L (4-12); Aspartate Amino Transferase 19 U/L (17-59); Bilirubin,Total 0.7 mg/dL (0.2-1.3); Blood Urea Nitrogen 14 mg/dL (9-20); Calcium 8.7 mg/dL (8.4-10.2); Carbon Dioxide 30 mmol/L (22-30); Chloride 105 mmol/L (98-107); Estimated CRCL calculation 106 ml/min; Estimated Glomerular Filt Rate > 60; Glucose 118 mg/dL (65-110); Magnesium 2.1 mg/dL (1.6-2.3); Potassium 4.1 mmol/L (3.4-5.0); Sodium 142 mmol/L (137-145)
[2025-01-02 08:13] LABS: Glucose Point of Care 97 mg/dl (65-105)
[2025-01-02] MEDS: SACUBITRIL/VALSARTAN 24-26 MG TABLET 1 TAB PO ×2 (09:03→21:31)
[2025-01-02] MEDS: SPIRONOLACTONE 25 MG TABLET PO (09:03)
[2025-01-02] MEDS: METOPROLOL SUCCINATE EXT REL 100 MG TABCR PO (09:03)
[2025-01-02] MEDS: APIXABAN 5 MG TABLET PO ×2 (09:03→21:31)
[2025-01-02] MEDS: ATORVASTATIN 40 MG TABLET PO (09:03)
[2025-01-02] MEDS: CLOPIDOGREL BISULFATE 75 MG TABLET PO (09:04)
[2025-01-02] MEDS: EMPAGLIFLOZIN 10 MG TABLET PO (09:04)
--- NOTE | 2025-01-02 10:48 | P.PNCA_ITS ---
Progress Note: A&P Assessment and Plan (1) Atrial flutter with rapid ventricular response: Code(s): I48.92 - Unspecified atrial flutter Status: Acute Plan 1. Atrial flutter / atrial fibrillation with RVR. New diagnosis in setting of COVID. 2. Acute heart failure with reduced LVEF of 30-35% per TTE 12/31/2024. New diagnosis of LV systolic dysfunction in setting of COVID, atrial fibrillation/atrial flutter with RVR 3. COVID infection 4. Moderate-severe aortic stenosis 5. Coronary artery disease s/p PCI 6. Hypertension 7. Hyperlipidemia 8. Diabetes mellitus PLAN: -Will increase metoprolol to 75mg q8h today. If his heart rate becomes better controlled on this dose, shift to ToprolXL 225mg daily at discharge -Avoid Diltiazem given reduced LVEF. -Continue Eliquis 5mg BID. -Can consider outpatient cardioversion after patient has been on anticoagulation for at least 4 weeks. -Discussed echo findings with the patient. LV systolic dysfunction may be tachycardia mediated. Continue GDMT with Entresto, Spironolactone, Start Jardiance. -Edema much improved. Will start p.o. furosemide for maintenance -Continue high intensity statin. -Continue Plavix 75mg once daily. Will not be resuming ASA as we have started Eliquis (avoiding triple therapy). -Regarding his aortic stenosis, appears to be moderate-severe on echo, which was noted on past echocardiogram. However, cardiac catheterization done in November 2023 showed findings more consistent with mild . Outpatient follow up with Dr. Reich. -Management of COVID as per Hospitalist. On Remdesivir. Anticipate discharge tomorrow if heart rate is better controlled Patient has appointment with Dr. Reich scheduled for 01/06/2025. Will keep this appointment. Subjective Date/time seen: 01/02/25 10:48 Interval history: Reason for visit: Atrial flutter with RVR HPI: Ilan Lange is a 62-year-old man with coronary disease, history of aggressive PCI with rotational atherectomy and stenting of the proximal half of the LAD in 2009. He also is known to have aortic valve stenosis which was found to be mild by left heart cath in 2023. He comes to the hospital with complaints of shortness of breath, lower extremity swelling. He is found to be positive for COVID. EKG and telemetry demonstrate atrial fibrillation with rapid ventricular response. He does report feeling racing heartbeat occasionally but generally he is asymptomatic. He does not have any history of any cardiac arrhythmias. Date of service 01/01: He reports feeling okay. Has been having lower extremity edema over the past two weeks or so. Heart rates in the low 100s. Date of service 01/02/2025: Feeling better today. Less shortness of breath. Armen ma improving. Heart rate is above goal. Review of Systems Review of Systems: All systems reviewed & are unremarkable except as noted in HPI and below (HPI) Exam Const: General: comfortable, no acute distress, alert and awake Orientation/consciousness: patient oriented x3 HENMT: Head: normal to inspection Mouth: Yes moist mucous membranes Eyes: General: appearance normal, both eyes and all related structures Sclera: sclerae normal Pupils: Equal, round and reactive pupils present Neck: Neck: normal visual inspection, supple and no JVD Carotids: normal carotid upstroke Resp: Effort & Inspection: normal respiratory effort Auscultation: not cl ear to auscultation bilaterally and rales Cardio: Rate: tachycardic Rhythm: regular rhythm and abnormal rhythm regularly irregular Heart sounds: S1 normal heart sound present, S2 normal heart sound present and Murmur heart sound present systolic Other: Mild bilateral lower extremity edema GI: Auscultation: normal bowel sounds Skin: General skin exam: normal color Neuro: General: patient oriented x3 Cranial nerves: Yes Equal, round and reactive pupils present Speech: normal speech Extrem: General: edema and pedal edema Psych: Appearance: grossly normal Mental Status: mental status grossly normal Affect: normal affect Objective Data Vital Signs Vital Signs: Vital Signs - 24 hr 01/01/25 11:50 01/01/25 12:00 01/01/25 12:20 Temperature 36.2 C L Pulse Rate 106 H 110 H 106 H Respiratory Rate 20 Blood Pressure 129/88 Pulse Oximetry 96 Oxygen Delivery 01/01/25 14:00 01/01/25 15:54 01/01/25 16:00 Temperature 36.6 C Pulse Rate 115 H 107 H 108 H Respiratory Rate 20 Blood Pressure 124/76 Pulse Oximetry 95 Oxygen Delivery 01/01/25 18:00 01/01/25 19:57 01/01/25 20:00 Temperature 36.6 C Pulse Rate 120 H 107 H 115 H Respiratory Rate 16 16 Blood Pressure 140/87 Pulse Oximetry 94 94 Oxygen Delivery Room Air 01/01/25 20:00 01/01/25 22:00 01/01/25 23:51 Temperature 36.5 C Pulse Rate 115 H 114 H 103 H Respiratory Rate 16 Blood Pressure 150/93 H Pulse Oximetry 96 Oxygen Delivery 01/02/25 00:00 01/02/25 00:00 01/02/25 02:00 Temperature Pulse Rate 105 H 105 H 103 H Respiratory Rate 16 Blood Pressure Pulse Oximetry 96 Oxygen Delivery Room Air 01/02/25 03:42 01/02/25 04:00 01/02/25 04:00 Temperature 36.6 C Pulse Rate 105 H 105 H 105 H Respiratory Rate 16 16 Blood Pressure 149/97 H Pulse Oximetry 96 96 Oxygen Delivery Room Air 01/02/25 06:00 01/02/25 08:00 01/02/25 09:03 Temperature 36.4 C L Pulse Rate 103 H 111 H 133 H Respiratory Rate 18 Blood Pressure 152/98 H Pulse Oximetry 94 Oxygen Delivery Intake/Output Intake/Output: Intake & Output 12/30/24 12/31/24 01/01/25 01/02/25 23:59 23:59 23:59 23:59 Intake Total 1921.0 1729 240 Output Total 1650 1300 2000 Balance 271.0 429 -1760 Meds/Results Medications: Active Medications Generic Name Dose Route Start Last Admin Trade Name Freq PRN Reason Stop Dose Admin Acetaminophen 650 mg 12/30/24 21:02 Acetaminophen 325 Mg Tablet PO Q6H PRN Mild Pain (1-3) or Fever Apixaban 5 mg 12/31/24 21:00 01/02/25 09:03 Apixaban 5 Mg Tablet PO 5 mg Q12HR MIRNA Administration Atorvastatin Calcium 40 mg 01/01/25 11:55 01/02/25 09:03 Atorvastatin 40 Mg Tablet PO 40 mg DAILY MIRNA Administration Clopidogrel Bisulfate 75 mg 01/01/25 11:55 01/02/25 09:04 Clopidogrel Bisulfate 75 Mg Tablet PO 75 mg QAM MIRNA Administration Dextrose 12.5 gm 12/30/24 21:02 Dextrose 50% 25 Gm/50 Ml Syringe IV PUSH PRN PRN Hypoglycemia Protocol Empagliflozin 10 mg 01/01/25 11:55 01/02/25 09:04 Empagliflozin 10 Mg Tablet PO 10 mg DAILY MIRNA Administration Glucagon 1 mg 12/30/24 21:02 Glucagon For Inj 1 Mg Vial IM PRN PRN Hypoglycemia Protocol Glucose 15 gm 12/30/24 21:02 Glucose Oral Gel 15 Gm Of Glucse In 37.5 Gm Tube PO PRN PRN Hypoglycemia Protocol Dextrose 1,000 mls @ 100 mls/hr 12/30/24 21:02 Dextrose 5% 1,000 Ml IVPB PRN PRN Hypoglycemia Protocol Remdesivir 100 mg in 250 mls @ 250 mls/hr 12/31/24 22:00 01/01/25 23:25 IVPB 01/03/25 22:59 Infused Q24H MIRNA Infusion Insulin Aspart 1 - 3 units 12/31/24 21:00 01/01/25 22:25 Insulin Aspart (*Bkc) 100 Units/Ml SUB-Q 1 units HS MIRNA Administration Protocol Insulin Aspart 3 - 6 units 12/31/24 08:00 01/02/25 09:06 Insulin Aspart (*Bkc) 100 Units/Ml SUB-Q Not Given TIDWM [facility] Protocol Metoprolol Tartrate 25 mg/ 75 mg 01/02/25 10:50 Metoprolol Tartrate 50 mg PO Q8H MIRNA Perflutren Lipid Microsphere 0 ml 12/30/24 18:00 Perflutren Lipid Microspheres 1.5 Ml Vial Diluted To 10 Ml Total Volume IV PUSH 01/02/25 18:00 ONCE PRN adequate visualization Protocol Sacubitril/Valsartan 1 tab 01/01/25 21:00 01/02/25 09:03 Sacubitril/Valsartan 24-26 Mg Tablet PO 1 tab Q12HR MIRNA Administration Spironolactone 25 mg 01/01/25 11:55 01/02/25 09:03 Spironolactone 25 Mg Tablet PO 25 mg QAM MIRNA Administration Radiology Results: ITS Impressions Chest X-Ray 12/30/24 14:02 IMPRESSION: 1. Mild atelectasis at right lung base. Venous Doppler Study 12/30/24 21:21 IMPRESSION: Patent bilateral lower extremity veins. No evidence of deep venous thrombosis. Labs Labs: Laboratory Results - last 24 hr 01/01/25 01/01/25 01/01/25 11:49 16:27 20:42 WBC RBC Hgb Hct MCV MCH MCHC RDW Plt Count MPV Immature Gran % (Auto) Neut % (Auto) Lymph % (Auto) [place] % (Auto) Eos % (Auto) Baso % (Auto) Lymph # (Auto) [place] # (Auto) Eos # (Auto) Baso # (Auto) Abs Immat Gran (auto) Absolute Neuts (auto) Absolute Nucleated RBC Nucleated RBC % Sodium Potassium Chloride Carbon Dioxide Anion Gap BUN Creatinine Estim Creat Clear Calc Estimated GFR Glucose POC Capillary Glucose 151 H 148 H 240 H Calcium Magnesium Total Bilirubin AST ALT Alkaline Phosphatase Total Protein Albumin 01/02/25 01/02/25 01/02/25 05:35 05:35 08:04 WBC 8.6 RBC 4.88 Hgb 14.0 Hct 44.6 MCV 91.4 MCH 28.7 MCHC 31.4 L RDW 14.9 H Plt Count 267 MPV 10.4 Immature Gran % (Auto) 0.4 Neut % (Auto) 78.8 H Lymph % (Auto) 9.7 L [place] % (Auto) 10.0 H Eos % (Auto) 0.9 Baso % (Auto) 0.2 Lymph # (Auto) 0.83 L [place] # (Auto) 0.9 H Eos # (Auto) 0.1 Baso # (Auto) 0.0 Abs Immat Gran (auto) 0.03 Absolute Neuts (auto) 6.8 H Absolute Nucleated RBC 0.000 Nucleated RBC % 0.0 Sodium 142 Potassium 4.1 4.1 Chloride 105 Carbon Dioxide 30 Anion Gap 7 BUN 14 Creatinine 0.80 Estim Creat Clear Calc 106 Estimated GFR > 60 Glucose 118 H POC Capillary Glucose 97 Calcium 8.7 Magnesium 2.1 Total Bilirubin 0.7 AST 19 ALT 17 Alkaline Phosphatase 83 Total Protein 6.0 L Albumin 3.4 L Quality VTE Prophylaxis VTE prophylaxis: pharmacologic ordered
[2025-01-02] MEDS: METOPROLOL TARTRATE TAB 25 MG, METOPROLOL TARTRATE TAB 50 MG 75 MG PO ×2 (12:20→21:31)
[2025-01-02 12:25] LABS: Glucose Point of Care 87 mg/dl (65-105)
--- NOTE | 2025-01-02 15:11 | P.PNIM_ITS ---
Progress Note: A&P Assessment and Plan (1) Atrial flutter with rapid ventricular response: Code(s): I48.92 - Unspecified atrial flutter Status: Acute (2) COVID: Code(s): U07.1 - COVID-19 Status: Acute (3) Lower extremity edema: Code(s): R60.0 - Localized edema Status: Acute (4) Suspected sleep apnea: Code(s): R29.818 - Other symptoms and signs involving the nervous system Status: Acute (5) Coronary artery disease: Code(s): I25.10 - Atherosclerotic heart disease of [place] coronary artery without angina pectoris Status: Acute (6) Hypertension: Code(s): I10 - Essential (primary) hypertension Status: Acute (7) Insulin dependent type 2 diabetes mellitus: Code(s): E11.9 - Type 2 diabetes mellitus without complications; Z79.4 - truck terminal manager (current) use of insulin Status: Acute (8) Tobacco dependence: Code(s): F17.200 - Nicotine dependence, unspecified, uncomplicated Status: Acute (9) Mild aortic stenosis: Code(s): I35.0 - Nonrheumatic aortic (valve) stenosis Status: Acute Plan Atrial flutter with RVR, still elevated On Metoprolol at 100mg daily, Eliquis Cardiology to adjust Metoprolol ECHO EF 30-35% DCC outpatient per cards Cardiology following Acute systolic heart failure ECHO showed EF 30-35% Continue Entresto, Spironolactone, Jardiance and Metoprolol Cardiology following Covid 19 not on oxygen Continue Remdesivir monitor HTN continue home meds HLD continue statin CAD s/p stent Plavix, Eliquis DM2 SSi and accucheks, Jardiance DVT prophylaxis on Eliquis Subjective Date/time seen: 01/02/25 15:11 Interval history: comfortable at bedside still having elevated HR cardiology to adjust Metoprolol Review of Systems Review of Systems: 12 systems were reviewed and are negativ e except for as per HPI. Exam Narrative: General: Mildly ill-appearing gentleman sitting up in bed in no acute distress. Weight: 13.6 kg. BMI: 34.0. HEENT: PERRL, EOMI. Sclera anicteric. Oral mucosa moist. Oropharynx clear. Neck: Supple. No JVD or lymphadenopathy. Respiratory: Lungs are clear to auscultation bilaterally. Cardiovascular: Regular rate and rhythm. Systolic murmur at the upper sternal border and apex. Gastrointestinal: Abdomen is soft, nontender, and nondistended with positive bowel sounds. Delete Skin: Warm and dry. Shallow breath shins on the left anterior [place]. Extremities: No cyanosis or clubbing. Two to 3+ bilateral lower extremity edema up to the knees. No palpable knots or cords. Negative Mellissa sign bilaterally. Neurological: Alert. Cranial nerves 2-12 are grossly intact. No gross focal deficits to casual conversation. Psychiatric: Pleasant and cooperative with normal mood and affect. Judgment and insight intact. Objective Data Vital Signs Vital Signs: Vital Signs - 24 hr 01/01/25 15:54 01/01/25 16:00 01/01/25 18:00 Temperature 97.8 F Pulse Rate 107 H 108 H 120 H Respiratory Rate 20 Blood Pressure 124/76 Pulse Oximetry 95 Oxygen Delivery 01/01/25 19:57 01/01/25 20:00 01/01/25 20:00 Temperature 97.9 F Pulse Rate 107 H 115 H 115 H Respiratory Rate 16 16 Blood Pressure 140/87 Pulse Oximetry 94 94 Oxygen Delivery Room Air 01/01/25 22:00 01/01/25 23:51 01/02/25 00:00 Temperature 97.7 F Pulse Rate 114 H 103 H 105 H Respiratory Rate 16 16 Blood Pressure 150/93 H Pulse Oximetry 96 96 Oxygen Delivery Room Air 01/02/25 00:00 01/02/25 02:00 01/02/25 03:42 Temperature 97.9 F Pulse Rate 105 H 103 H 105 H Respiratory Rate 16 Blood Pressure 149/97 H Pulse Oximetry 96 Oxygen Delivery 01/02/25 04:00 01/02/25 04:00 01/02/25 06:00 Temperature Pulse Rate 105 H 105 H 103 H Respiratory Rate 16 Blood Pressure Pulse Oximetry 96 Oxygen Delivery Room Air 01/02/25 08:00 01/02/25 08:30 01/02/25 09:03 Temperature 97.5 F L Pulse Rate 111 H 120 H 133 H Respiratory Rate 18 Blood Pressure 152/98 H Pulse Oximetry 94 Oxygen Delivery 01/02/25 10:00 01/02/25 12:00 01/02/25 12:20 Temperature 97.7 F Pulse Rate 134 H 111 H 132 H Respiratory Rate 18 Blood Pressure 127/96 H Pulse Oximetry 97 Oxygen Delivery 01/02/25 12:30 01/02/25 14:00 Temperature Pulse Rate 110 H 96 Respiratory Rate Blood Pressure Pulse Oximetry Oxygen Delivery Intake/Output Intake/Output: Intake & Output 12/30/24 12/31/24 01/01/25 01/02/25 23:59 23:59 23:59 23:59 Intake Total 1921.0 1729 480 Output Total 1650 1300 2000 Balance 271.0 429 -1520 Meds/Results Medications: Active Medications Generic Name Dose Route Start Last Admin Trade Name Freq PRN Reason Stop Dose Admin Acetaminophen 650 mg 12/30/24 21:02 Acetaminophen 325 Mg Tablet PO Q6H PRN Mild Pain (1-3) or Fever Apixaban 5 mg 12/31/24 21:00 01/02/25 09:03 Apixaban 5 Mg Tablet PO 5 mg Q12HR MIRNA Administration Atorvastatin Calcium 40 mg 01/01/25 11:55 01/02/25 09:03 Atorvastatin 40 Mg Tablet PO 40 mg DAILY MIRNA Administration Clopidogrel Bisulfate 75 mg 01/01/25 11:55 01/02/25 09:04 Clopidogrel Bisulfate 75 Mg Tablet PO 75 mg QAM MIRNA Administration Dextrose 12.5 gm 12/30/24 21:02 Dextrose 50% 25 Gm/50 Ml Syringe IV PUSH PRN PRN Hypoglycemia Protocol Empagliflozin 10 mg 01/01/25 11:55 01/02/25 09:04 Empagliflozin 10 Mg Tablet PO 10 mg DAILY MIRNA Administration Glucagon 1 mg 12/30/24 21:02 Glucagon For Inj 1 Mg Vial IM PRN PRN Hypoglycemia Protocol Glucose 15 gm 12/30/24 21:02 Glucose Oral Gel 15 Gm Of Glucse In 37.5 Gm Tube PO PRN PRN Hypoglycemia Protocol Dextrose 1,000 mls @ 100 mls/hr 12/30/24 21:02 Dextrose 5% 1,000 Ml IVPB PRN PRN Hypoglycemia Protocol Remdesivir 100 mg in 250 mls @ 250 mls/hr 12/31/24 22:00 01/01/25 23:25 IVPB 01/03/25 22:59 Infused Q24H MIRNA Infusion Insulin Aspart 1 - 3 units 12/31/24 21:00 01/01/25 22:25 Insulin Aspart (*Bkc) 100 Units/Ml SUB-Q 1 units HS MIRNA Administration Protocol Insulin Aspart 3 - 6 units 12/31/24 08:00 01/02/25 12:18 Insulin Aspart (*Bkc) 100 Units/Ml SUB-Q Not Given TIDWM [facility] Protocol Metoprolol Tartrate 25 mg/ 75 mg 01/02/25 12:00 01/02/25 12:20 Metoprolol Tartrate 50 mg PO 75 mg Q8H MIRNA Administration Perflutren Lipid Microsphere 0 ml 12/30/24 18:00 Perflutren Lipid Microspheres 1.5 Ml Vial Diluted To 10 Ml Total Volume IV PUSH 01/02/25 18:00 ONCE PRN adequate visualization Protocol Sacubitril/Valsartan 1 tab 01/01/25 21:00 01/02/25 09:03 Sacubitril/Valsartan 24-26 Mg Tablet PO 1 tab Q12HR MIRNA Administration Spironolactone 25 mg 01/01/25 11:55 01/02/25 09:03 Spironolactone 25 Mg Tablet PO 25 mg QAM MIRNA Administration Radiology Results: ITS Impressions Chest X-Ray 12/30/24 14:02 IMPRESSION: 1. Mild atelectasis at right lung base. Venous Doppler Study 12/30/24 21:21 IMPRESSION: Patent bilateral lower extremity veins. No evidence of deep venous thrombosis. Labs Labs: Laboratory Results - last 24 hr 01/01/25 01/01/25 01/01/25 11:49 16:27 20:42 WBC RBC Hgb Hct MCV MCH MCHC RDW Plt Count MPV Immature Gran % (Auto) Neut % (Auto) Lymph % (Auto) [place] % (Auto) Eos % (Auto) Baso % (Auto) Lymph # (Auto) [place] # (Auto) Eos # (Auto) Baso # (Auto) Abs Immat Gran (auto) Absolute Neuts (auto) Absolute Nucleated RBC Nucleated RBC % Sodium Potassium Chloride Carbon Dioxide Anion Gap BUN Creatinine Estim Creat Clear Calc Estimated GFR Glucose POC Capillary Glucose 151 H 148 H 240 H Calcium Magnesium Total Bilirubin AST ALT Alkaline Phosphatase Total Protein Albumin 01/02/25 01/02/25 01/02/25 05:35 05:35 08:04 WBC 8.6 RBC 4.88 Hgb 14.0 Hct 44.6 MCV 91.4 MCH 28.7 MCHC 31.4 L RDW 14.9 H Plt Count 267 MPV 10.4 Immature Gran % (Auto) 0.4 Neut % (Auto) 78.8 H Lymph % (Auto) 9.7 L [place] % (Auto) 10.0 H Eos % (Auto) 0.9 Baso % (Auto) 0.2 Lymph # (Auto) 0.83 L [place] # (Auto) 0.9 H Eos # (Auto) 0.1 Baso # (Auto) 0.0 Abs Immat Gran (auto) 0.03 Absolute Neuts (auto) 6.8 H Absolute Nucleated RBC 0.000 Nucleated RBC % 0.0 Sodium 142 Potassium 4.1 4.1 Chloride 105 Carbon Dioxide 30 Anion Gap 7 BUN 14 Creatinine 0.80 Estim Creat Clear Calc 106 Estimated GFR > 60 Glucose 118 H POC Capillary Glucose 97 Calcium 8.7 Magnesium 2.1 Total Bilirubin 0.7 AST 19 ALT 17 Alkaline Phosphatase 83 Total Protein 6.0 L Albumin 3.4 L 01/02/25 11:57 WBC RBC Hgb Hct MCV MCH MCHC RDW Plt Count MPV Immature Gran % (Auto) Neut % (Auto) Lymph % (Auto) [place] % (Auto) Eos % (Auto) Baso % (Auto) Lymph # (Auto) [place] # (Auto) Eos # (Auto) Baso # (Auto) Abs Immat Gran (auto) Absolute Neuts (auto) Absolute Nucleated RBC Nucleated RBC % Sodium Potassium Chloride Carbon Dioxide Anion Gap BUN Creatinine Estim Creat Clear Calc Estimated GFR Glucose POC Capillary Glucose 87 Calcium Magnesium Total Bilirubin AST ALT Alkaline Phosphatase Total Protein Albumin Quality VTE Prophylaxis VTE prophylaxis: pharmacologic ordered
[2025-01-02 17:50] LABS: Glucose Point of Care 154 mg/dl (65-105)
[2025-01-02 20:06] LABS: Glucose Point of Care 252 mg/dl (65-105)
[2025-01-02] MEDS: REMDESIVIR 100 MG/NS 250 ML 100 MG/250 ML BAG 250 MG IVPB (21:31)
[2025-01-02] MEDS: INSULIN ASPART (*BKC) 100 UNITS/ML SUB-Q (21:32)
[2025-01-03] VITALS (9 sets, daily range): BP systolic 133–140; BP diastolic 84–88; PULSE 9–111; RESP 16–20; TEMP 36.4; O2SAT 93–96
[2025-01-03] MEDS: METOPROLOL TARTRATE TAB 25 MG, METOPROLOL TARTRATE TAB 50 MG 75 MG PO ×2 (05:01→12:59)
[2025-01-03 05:43] LABS: Basophils Percent Auto 0.3 % (0.2-1.2); Eosinophils Absolute Auto 0.1 K/mm3 (0-0.3); Eosinophils Percent Auto 1.6 % (0-4.4); Hematocrit 46.3 % (42.0-52.0); Hemoglobin 14.9 g/dL (14.0-18.0); Immature Granulocyte Absolute 0.01 K/mm3 (0.00-0.031); Immature Granulocyte Percent A 0.1 % (0-0.5); Lymphocytes Absolute Auto 0.89 K/mm3 (0.9-3.2); Lymphocytes Percent Auto 12.8 % (18.3-44.2); Mean Corpuscular HGB Conc 32.2 g/dl (32-36); Mean Corpuscular Hemoglobin 29.2 pg (26-34); Mean Corpuscular Volume 90.8 fl (80-100); Mean Platelet Volume 10.6 fl (7.4-10.4); Monocytes Absolute Auto 0.8 K/mm3 (0.1-0.6); Monocytes Percent Auto 11.5 % (2.6-8.5); Neutrophils Absolute Auto 5.1 K/mm3 (1.3-6.7); Neutrophils Percent Auto 73.7 % (45.5-73.1); Platelet Count Result 256 k/mm3 (150-375); Red Cell Distribution Width 14.7 % (11.5-14.5)
[2025-01-03 05:56] LABS: INR 1.2; Prothrombin Time 15.1 Seconds (11.1-14.7)
[2025-01-03 06:02] LABS: Alanine Aminotransferase 18 U/L (6-50); Albumin Level 3.5 g/dL (3.5-5.1); Alkaline Phosphatase 86 U/L (38-126); Anion Gap 6 mmol/L (4-12); Aspartate Amino Transferase 22 U/L (17-59); Bilirubin,Total 0.6 mg/dL (0.2-1.3); Blood Urea Nitrogen 15 mg/dL (9-20); Calcium 8.5 mg/dL (8.4-10.2); Carbon Dioxide 25 mmol/L (22-30); Chloride 107 mmol/L (98-107); Estimated CRCL calculation 140 ml/min; Estimated Glomerular Filt Rate > 60; Glucose 191 mg/dL (65-110); Magnesium 2.1 mg/dL (1.6-2.3); Potassium 4.1 mmol/L (3.4-5.0); Sodium 138 mmol/L (137-145)
[2025-01-03 07:44] LABS: Glucose Point of Care 153 mg/dl (65-105)
[2025-01-03] MEDS: CLOPIDOGREL BISULFATE 75 MG TABLET PO (09:53)
[2025-01-03] MEDS: SPIRONOLACTONE 25 MG TABLET PO (09:53)
[2025-01-03] MEDS: APIXABAN 5 MG TABLET PO (09:53)
[2025-01-03] MEDS: SACUBITRIL/VALSARTAN 24-26 MG TABLET 1 TAB PO (09:53)
[2025-01-03] MEDS: ATORVASTATIN 40 MG TABLET PO (09:53)
[2025-01-03] MEDS: EMPAGLIFLOZIN 10 MG TABLET PO (09:53)
[2025-01-03] MEDS: FUROSEMIDE 40 MG TABLET PO (09:53)
[2025-01-03 12:14] LABS: Glucose Point of Care 256 mg/dl (65-105)
--- NOTE | 2025-01-03 12:53 | P.DS_ITS ---
DS: Admitting Diagnosis Discharge Date 01/03/25 Admitting Diagnosis Racing heart and elevated blood pressure. DS: Discharge Diagnosis Discharge Diagnosis (1) Atrial flutter with rapid ventricular response: Code(s): I48.92 - Unspecified atrial flutter Status: Acute (2) COVID: Code(s): U07.1 - COVID-19 Status: Acute DS: Summary Hospital Course Hospital Course: This is a 64-year-old male smoker with coronary artery disease status post stent to the mid LAD, mild aortic stenosis, hypertension, hyperlipidemia, and type 2 diabetes mellitus who presented to the emergency department from urgent care with complaints of racing heart and elevated blood pressure. The patient provides the following history. He endorses occasional, self-limiting palpitation which have been ongoing for many months if not longer. Over the last couple of weeks however the episode seemed to be more frequent and are lasting longer. He feels his heart racing and beating quickly though it does not necessarily feel irregular. He has also noticed swelling in his lower legs and shortness of breath with activity at work. Additionally he reports occasional dizziness, loose stools for the last week, sinus congestion, and a nonproductive cough. He went to urgent care and was referred to the emergency department for further evaluation of tachycardia and elevated blood pressures. He denies sync ope, near syncope, fever, sore throat, chest and pleuritic pain, orthopnea, paroxysmal nocturnal dyspnea, vomiting, and calf pain. No known history of thyroid disease or sleep apnea though reports that he snores heavily. He denies significant alcohol and caffeine use. In the ED: Vital signs on arrival include a temperature of 97.7, blood pressure 154/119, pulse 125, respiratory 16, SpO2 98% on room air. CBC and CMP were pretty unremarkable. ProBNP was 3500. He tested positive for SARS-CoV-2 by PCR. Chest x-ray showed mild atelectasis at the right lung base. EKG showed atrial flutter/tachycardia with rapid ventricular response and rates in the 130s. He received metoprolol 5 mg IV without improvement in his heart rate and he has since been started on a diltiazem drip. He is being admitted in this setting for further treatment and evaluation. cardiology was involved and patient was initially stared on DIltiazem drip and transitioned to the metoprolol and which was titrated up to 75 q8 tartrate, HR better controlled today and discharged on Metoprolol 225 mg daily and ELiquis. will follow up [facility] cardiology for outpatient DCCV. Also managed for Acute heart failure with EF 30-35%, cardiology started patient on Entresto, Jardiance, Spironolactone and Lasix and patient tolerated all meds while here. HE will continue folllow up with cardiology as instructed. Was managed with Remdesivir for Covid, however patient never required oxygen. Continue other home meds except Aspirin whcih was discontinued as patient was started on Eliquis. F/u with PCP in 3-5 days F/u with cardiology as instructed Time Spent with Patient Time attestation: Total time spent providing and/or coordinating discharge services: DS: Data Data Completed and Pending Labs on day of discharge: Labs from last 24 hours 01/03/25 01/03/25 01/03/25 11:37 07:18 05:33 WBC RBC Hgb Hct MCV MCH MCHC RDW Plt Count MPV Immature Gran % (Auto) Neut % (Auto) Lymph % (Auto) [place] % (Auto) Eos % (Auto) Baso % (Auto) Lymph # (Auto) [place] # (Auto) Eos # (Auto) Baso # (Auto) Abs Immat Gran (auto) Absolute Neuts (auto) Absolute Nucleated RBC Nucleated RBC % PT INR Sodium Potassium Chloride Carbon Dioxide Anion Gap BUN Creatinine Estim Creat Clear Calc Estimated GFR Glucose POC Capillary Glucose 256 H 153 H Calcium Magnesium Total Bilirubin Direct Bilirubin AST ALT Alkaline Phosphatase Total Protein Albumin 3.5 01/03/25 01/03/25 01/03/25 05:33 05:33 05:33 WBC RBC Hgb Hct MCV MCH MCHC RDW Plt Count MPV Immature Gran % (Auto) Neut % (Auto) Lymph % (Auto) [place] % (Auto) Eos % (Auto) Baso % (Auto) Lymph # (Auto) [place] # (Auto) Eos # (Auto) Baso # (Auto) Abs Immat Gran (auto) Absolute Neuts (auto) Absolute Nucleated RBC Nucleated RBC % PT INR Sodium Potassium Chloride Carbon Dioxide Anion Gap BUN Creatinine Estim Creat Clear Calc Estimated GFR Glucose POC Capillary Glucose Calcium Magnesium Total Bilirubin Direct Bilirubin AST ALT 18 Alkaline Phosphatase 86 Cancelled Total Protein 6.0 L Cancelled Albumin Cancelled 01/03/25 01/03/25 01/03/25 05:33 05:33 05:33 WBC 7.0 RBC 5.10 Hgb 14.9 Hct 46.3 MCV 90.8 MCH 29.2 MCHC 32.2 RDW 14.7 H Plt Count 256 MPV 10.6 H Immature Gran % (Auto) 0.1 Neut % (Auto) 73.7 H Lymph % (Auto) 12.8 L [place] % (Auto) 11.5 H Eos % (Auto) 1.6 Baso % (Auto) 0.3 Lymph # (Auto) 0.89 L [place] # (Auto) 0.8 H Eos # (Auto) 0.1 Baso # (Auto) 0.0 Abs Immat Gran (auto) 0.01 Absolute Neuts (auto) 5.1 Absolute Nucleated RBC 0.000 Nucleated RBC % 0.0 PT 15.1 H INR 1.2 Sodium 138 Potassium 4.1 Chloride 107 Carbon Dioxide 25 Anion Gap 6 BUN 15 Creatinine 0.59 L Estim Creat Clear Calc 140 Estimated GFR > 60 Glucose 191 H POC Capillary Glucose Calcium 8.5 Magnesium 2.1 Total Bilirubin 0.6 Cancelled Direct Bilirubin Cancelled AST 22 Cancelled ALT Cancelled Alkaline Phosphatase Total Protein Albumin 01/02/25 01/02/25 20:03 16:48 WBC RBC Hgb Hct MCV MCH MCHC RDW Plt Count MPV Immature Gran % (Auto) Neut % (Auto) Lymph % (Auto) [place] % (Auto) Eos % (Auto) Baso % (Auto) Lymph # (Auto) [place] # (Auto) Eos # (Auto) Baso # (Auto) Abs Immat Gran (auto) Absolute Neuts (auto) Absolute Nucleated RBC Nucleated RBC % PT INR Sodium Potassium Chloride Carbon Dioxide Anion Gap BUN Creatinine Estim Creat Clear Calc Estimated GFR Glucose POC Capillary Glucose 252 H 154 H Calcium Magnesium Total Bilirubin Direct Bilirubin AST ALT Alkaline Phosphatase Total Protein Albumin Discharge Plan Discharge Attending physician on discharge: Adonay Rivera Consulting providers: Araseli Blair Discharging Clinician: Adonay Rivera Anticipated Discharge Date/Time: 01/03/25 12:30 Patient Disposition: Home, Self-Care Activity: as tolerated Diet: as tolerated and heart healthy Patient Instructions: Antibiotic Form, Clopidogrel (By mouth), Heart Failure (GEN) Patient Language: Thai Stand Alone Forms: General Discharge Information Follow-up/Referrals: Araseli Blair APN-C [Advanced Practice Nurse] - (F/u with cardiology as instructed ) Isma,Mohan Duarte MD [Primary Care Provider] - (F/u with PCP in 3-5 days ) Discharge Medications: New Eliquis 5 mg Tablet 5 mg PO Q12HR 30 Days Qty: 60 1RF sacubitril-valsartan [Entresto] 24-26 mg Tablet 1 tab PO Q12HR 30 Days Qty: 60 1RF furosemide 40 mg Tablet 40 mg PO DAILY 30 Days Qty: 30 1RF Jardiance 10 mg Tablet 10 mg PO DAILY 30 Days Qty: 30 1RF spironolactone 25 mg Tablet 25 mg PO QAM 30 Days Qty: 30 1RF metoprolol succinate 100 mg tablet extended release 24 hr 225 mg PO DAILY 30 Days Qty: 68 1RF Continued metformin 1,000 mg tablet 1,000 mg PO BID clopidogrel 75 mg tablet 75 mg PO DAILY atorvastatin 40 mg tablet 40 mg PO DAILY gemfibrozil 600 mg tablet 600 mg PO BID Discontinued lisinopril 20 mg tablet 20 mg PO DAILY metoprolol succinate 50 mg tablet extended release 24 hr 50 mg PO DAILY aspirin 81 mg Tablet,Chewable 81 mg PO DAILY Date of admission: 01/01/25 10:35 Primary Care Provider: Isma,Mohan Duarte Admitting Provider: Buddy Beauchamp Attending physician on admission: Buddy Beauchamp Condition: Serious
[2025-01-03] MEDS: INSULIN ASPART (*BKC) 100 UNITS/ML SUB-Q (12:59)
== END 2025-01-03 14:42 | disposition home or self-care (01) | DRG 177 ==
LOC: ANHED 14:58 → ANHIMU 15:50
PROVIDERS: Internal Medicine; Physician Assistant; Admitting Provider General Practice; Emergency Provider Emergency Medicine; PCP Internal Medicine; Visit Provider Internal Medicine
DX: U07.1 COVID-19 (principal); I50.21 Acute systolic (congestive) heart failure; I48.92 Unspecified atrial flutter; I11.0 Hypertensive heart disease with heart failure; I48.91 Unspecified atrial fibrillation; E78.5 Hyperlipidemia, unspecified; E11.9 Type 2 diabetes mellitus without complications; I35.0 Nonrheumatic aortic (valve) stenosis; I25.10 Atherosclerotic heart disease of native coronary artery without angina pectoris; F17.210 Nicotine dependence, cigarettes, uncomplicated; Z95.5 Presence of coronary angioplasty implant and graft; Z98.49 Cataract extraction status, unspecified eye
CPT/HCPCS: 36415; 71046; 80048; 80053; 80076; 82948; 83036; 83605; 83735; 83880; 84132; 84443; 85025; 85027; 85610; 85730; 87637; 93005; 93306; 93970; 96365; 96366; 96367; 96372; 96375; 99285; A9270; G0378; J0248; J1650; J1815; J1940

== ENCOUNTER 2025-01-13 10:52 | Observation (INO) | payer OTHER, SELFPAY ==
[2025-01-13] VITALS (42 sets, daily range): BP systolic 81–117; BP diastolic 62–92; PULSE 107–134; RESP 10–28; TEMP 36.4; O2SAT 91–98
--- NOTE | ~2025-01-13 | XR_ITS ---
XR chest 2V Ordering provider: Nyla Astorga APRN History: 64 years Male with . SOB, dizzy . Comparison: December 30, 2024 FINDINGS: MEDIASTINUM: The cardiac silhouette is not enlarged. LUNGS: No infiltrates, effusions or pneumothorax. OTHER: No free air under the diaphragm. Degenerative changes of the spine. IMPRESSION: No acute cardiopulmonary pathology. Reviewed, dictated and finalized at location A. RVISOR FISH BAIT PROCESSING
--- OUTSIDE RECORDS SUMMARY | 2025-01-13 12:19 | XMS_ITS | Encounter Summary ---
Author Organization [facility] Healthcare Address [address] [place] [address] Care Team Providers Care Drawing Box Tender Name Role Phone Mohan Ashby MD Primary Care Provider Reason for Visit * Reason Onset Date Comments Shortness of Breath 01/13/2025 Rapid Heart Rate 01/13/2025 Fatigue 01/13/2025 Encounter Details Date Type Department Care Team (Late st Contact Info) Description 01/13/2025 Telephone [facility] Medical Group Cardiology [address] [phone] Ilan Reich MD [address] [place] [address] Shortness of Breath; Rapid Heart Rate; Fatigue Social History Tobacco Use Types Packs/Day Years Used Date Smoking Tobacco: Every Day Comments:Smoking History Pac ks/day: 1 Packs Alcohol Use Standard Drinks/Week Comments Yes 0 (1 standard drink = 0.6 oz pur e alcohol) Sex and Gender Information Value Date Recorded Sex Assigned at Not on file Legal Sex Male 4:11 AM SOFTWARE VERIFICATION ENGINEER Gender Identity Not on file Sexual Orientation Not on file documented as of this encounter Miscellaneous Notes * Telephone Encounter - Johnathan Garza RN - 01/13/2025 10:18 AM SOFTWARE VERIFICATION ENGINEER See other telephone note from 01/13/25 WARE VERIFICATION ENGINEER * Telephone Encounter - Johnathan Garza RN - 01/13/2025 9:41 AM SOFTWARE VERIFICATION ENGINEER LM on VM to call back to discuss WARE VERIFICATION ENGINEER * Telephone Encounter - Elizabeth Dallas - 01/13/2025 9:13 AM CST Nesha (pts spouse) states that she will be dropping off paperwork for the pts short term disability. Nesha also states that the pt has been on the new medication for 2 weeks and he is still not feeling well. States that his heart is racing, SOB and extremely fatigued. Requesting a call back. Please advise. Thank you. Contact [phone] WARE VERIFICATION ENGINEER documented in this encounter Plan of Treatment Not on file documented as of this encounter Visit Diagnoses Not on filedocumented in this encounter Care Teams Drawing Box Tender Relationship Specialty Start Date End Date Mohan Ashby MD PCP - General Internal Medicine 01/25/18 documented as of this encounter
--- OUTSIDE RECORDS SUMMARY | 2025-01-13 12:19 | XMS_ITS | Encounter Summary ---
Author Organization [facility] Healthcare Address [address] [place] [address] Care Team Providers Care Patient Care Assistant Name Role Phone Mohan Ashby MD Primary Care Provider [phone] Encounter Details Date Type Department Care Team (Late st Contact Info) Description 01/13/2025 Telephone [facility] Medical Group Cardiology [address] [facility] [address] [place] [address] Ilan Reich MD [address] [place] [address] Social History Tobacco Use Types Packs/Day Years Used Date Smoking Tobacco: Every Day Comments:Smoking History Pac ks/day: 1 Packs Alcohol Use Standard Drinks/Week Comments Yes 0 (1 standard drink = 0.6 oz pur e alcohol) Sex and Gender Information Value Date Recorded Sex Assigned at Not on file Legal Sex Male 4:11 AM ACCOUNTING DIRECTOR Gender Identity Not on file Sexual Orientation Not on file documented as of this encounter Miscellaneous Notes * Telephone Encounter - Johnathan Garza RN - 01/13/2025 10:11 AM ACCOUNTING DIRECTOR VADIM PRESLEY Spoke with pt . Pt has been increasingly short of breath and has been having near syncopal episodes this morning. Pt was standing at kitchen counter this morning and nearly fell backwards on her.Pt states that he looks white as a ghost . Advised pt that I could contact [facility] but that it may be appropriate to have him evaluated in the emergency room given his new and worsening symptoms. Pt is agreeable and states she would prefer that as pt is miserable and can't really do anything . SOP states that she will go home and bring him to the ED or call 911 if she has doubts of being able to safely bring pt to ED. UNTING DIRECTOR * Telephone Encounter - Nelly Duffy - 01/13/2025 10:00 AM CST Pt (Janie ) dropped off some paperwork to be filled out, Stated she also need to talk to a nurse regarding pt health. States pt is having sob and his HR is fast. Please advise! Thanks! [phone] Paperwork placed in the RN basket. UNTING DIRECTOR documented in this encounter Plan of Treatment Not on file documented as of this encounter Visit Diagnoses Not on filedocumented in this encounter Care Teams Patient Care Assistant Relationship Specialty Start Date End Date Mohan Ashby MD PCP - General Internal Medicine 01/25/18 documented as of this encounter
--- OUTSIDE RECORDS SUMMARY | 2025-01-13 12:19 | XMS_ITS | Encounter Summary ---
Author Organization [facility] Healthcare Address [address] [place] [address] Care Team Providers Care Molecular Spectroscopist Name Role Phone Mohan Ashby MD Primary Care Provider [phone] Reason for Visit * Reason Onset Date Comments Med Refill 01/09/2025 Encounter Details Date Type Department Care Team (Late st Contact Info) Description 01/09/2025 Telephone [facility] Medical Group Cardiology [address] [phone] Ilan Reich MD [address] [facility] [address] [place] [address] Med Refill Social History Tobacco Use Types Packs/Day Years Used Date Smoking Tobacco: Every Day Comments:Smoking History Pac ks/day: 1 Packs Alcohol Use Standard Drinks/Week Comments Yes 0 (1 standard drink = 0.6 oz pur e alcohol) Sex and Gender Information Value Date Recorded Sex Assigned at Not on file Legal Sex Male 4:11 AM CARPET FINISHING SUPERVISOR Gender Identity Not on file Sexual Orientation Not on file documented as of this encounter Miscellaneous Notes * Telephone Encounter - Jt Gupta MA - 01/10/2025 2:53 PM CST Script has been sent in ET FINISHING SUPERVISOR * Telephone Encounter - Kailey Smiley MA - 01/09/2025 9:[address] Reich, Will you be prescribing Troprol XL 225 mg daily? Thank you ET FINISHING SUPERVISOR * Telephone Encounter - Elizabeth Dallas - 01/09/2025 9:31 AM CST Patient requesting refill for metoprolol XL (TOPROL-XL) 100 mg with 30 day supply. Please send to [facility] pharmacy. Thank you. Contact [phone] ET FINISHING SUPERVISOR documented in this encounter Plan of Treatment Not on file documented as of this encounter Visit Diagnoses Not on filedocumented in this encounter Care Teams Molecular Spectroscopist Relationship Specialty Start Date End Date Mohan Ashby MD PCP - General Internal Medicine 01/25/18 documented as of this encounter
--- OUTSIDE RECORDS SUMMARY | 2025-01-13 12:20 | XMS_ITS | Clinical Summary ---
Author Organization [facility] Address [employer] [address] [place] [address] Phone Care Team Providers Care Apparel Rental Clerk Name Role Phone Mohan Ashby MD Primary Care Provider [phone] Ilan Reich MD Unavailable [phone] Allergies No known active allergies Medications aspirin [...] mouth daily. 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
--- OUTSIDE RECORDS SUMMARY | 2025-01-13 12:20 | XMS_ITS | Encounter Summary ---
Author Organization [facility] Healthcare Address [address] [place] [address] Care Team Providers Care Slasher Runner Name Role Phone Mohan Ashby MD Primary Care Provider [phone] Reason for Visit * Reason Onset Date Comments Shortness of Breath 12/20/2024 Encounter Details Date Type Department Care Team (Late st Contact Info) Description 12/20/2024 Telephone [facility] Medical Group Cardiology [address] [facility] [address] [phone] Ilan Reich MD [address] [facility] [address] [place] [address] Shortness of Breath Social History Tobacco Use Types Packs/Day Years Used Date Smoking Tobacco: Every Day Comments:Smoking History Pac ks/day: 1 Packs Alcohol Use Standard Drinks/Week Comments Yes 0 (1 standard drink = 0.6 oz pur e alcohol) Sex and Gender Information Value Date Recorded Sex Assigned at Not on file Legal Sex Male 4:11 AM BURRER HAND Gender Identity Not on file Sexual Orientation Not on file documented as of this encounter Miscellaneous Notes * Telephone Encounter - Gosia Cordero RN - 12/20/2024 2:17 PM BURRER HAND Spoke with pt, he had some dull [...] to call sooner with any further concerns. ER HAND * Telephone Encounter - Elizabeth Dallas - 12/20/2024 1:48 PM CST Nesha (pts spouse) states that the patient just arrived home and he is experiencing some intermittent chest pain. Please advise. Thank you. Contact [phone] ER HAND * Telephone Encounter - Gosia Cordero RN - 12/20/2024 10:15 AM BURRER HAND Spoke with pts regarding her message she is going to call pts PCP about his SOB when he is in the cold. She is not aware of pt having any cardiac concerns like CP. Scheduled pt for overdue f/u appt with F while I had her on the phone. ER HAND * Telephone Encounter - Elizabeth Dallas - 12/20/2024 9:52 AM CST Nesha (pts spouse) states that the patient has been having SOB when he gets in the cold. States that he has been experiencing it for the past 3 weeks. States that he has been on antibiotics for a cold for two weeks. Please advise. Thank you. Contact [phone] ER HAND documented in this encounter Plan of Treatment Not on file documented as of this encounter Visit Diagnoses Not on filedocumented in this encounter Care Teams Slasher Runner Relationship Specialty Start Date End Date Mohan Ashby MD PCP - General Internal Medicine 01/25/18 documented as of this encounter
--- OUTSIDE RECORDS SUMMARY | 2025-01-13 12:20 | XMS_ITS | Referral Summary ---
Author Organization [place] [facility] [address] Address [address] [address] Care Team Providers Care Security Police Name Role Phone Mohan Ashyb MD Primary Care Provider Encounters Date Type Department Care Team Description 01/13/2025 Orders Only [facility] Medical [facility] Cardiology [address] [place] [address] [address] [place] [phone] Jennie Dunlap MD 01/13/2025 Telephone [facility] Cardiology [address] [place] [address] [address] [place] [phone] Ilan Reich MD 01/13/2025 Telephone [facility] Cardiology [address] [place] [address] [address] [place] [phone] Ilan Reich MD Shortness of Breath; Rapid Heart Rate; Fatigue 01/09/2025 Telephone [facility] Cardiology [address] [place] [address] [address] [place] [phone] Ilan Reich MD Med Refill 01/06/2025 Telephone [facility] Cardiology [address] [place] [address] [address] [place] [phone] Ilan Reich MD 01/06/2025 4:00 PM AIR CARGO AGENT Office Visit [facility] Cardiology [address] [place] [address] [address] [place] [phone] Ilan Reich MD History of coronary artery stent placement (Primary Dx); Nonrheumatic aortic valve stenosis; Coronary artery disease involving [place] coronary artery of [place] heart without angina pectoris; Persistent atrial fibrillation (HCC) 12/20/2024 Telephone [facility] Medical Group Cardiology [address] [place] [address] Ilan Reich MD Shortness of Breath from Last 3 Months Allergies No known active allergies Medications atorvastatin (LIPITOR) 40 mg tablet take 1 tablet by oral route every day 0 0 5 Active metFORMIN (GLUCOPHAGE) 1,000 mg tablet TAKE 2 TABLET DAILY--NEEDS TO MAKE AND KEEP APPT. 60 1 5 Active aspirin 81 mg chewable tablet chew 1 tablet by oral route every day 0 0 6 Active Additional Information Patient not taking.Reported on 01/06/2025 gemfibrozil (LOPID) 600 mg tablet take 1 tablet (600MG) by oral route 2 times every day 30 minutes before morning and evening meal 60 6 2 Active clopidogrel (PLAVIX) 75 mg tablet TAKE ONE TABLET DAILY 30 2 2 Active BASAGLAR 100 unit/mL (3 mL) pen for injection 82 Units 3 Active Eliquis 5 mg tablet Take 1 tablet (5 mg total) by mouth every 12 (twelve) hours 5 Active Entresto 24-26 mg tablet Take 1 tablet by mouth every 12 (twelve) hours 5 Active furosemide (LASIX) 40 mg tablet Take 1 tablet (40 mg total) by mouth daily 5 Active Jardiance 10 mg tablet Take 1 tablet (10 mg total) by mouth daily 5 Active spironolactone (ALDACTONE) 25 mg tablet Take 1 tablet (25 mg total) by mouth every morning 5 Active metoprolol XL (TOPROL-XL) 200 mg extended release tablet Take 1 tablet (200 mg total) by mouth daily 30 tablet 2 5 Active metoprolol XL (TOPROL-XL) 25 mg extended release tablet Take 1 tablet (25 mg total) by mouth daily 30 tablet 2 5 01/10/20 26 Active metoprolol (LOPRESSOR) 25 mg tablet TAKE 1/2 TABLET TWICE A DAY 30 0 2 01/06/20 25 Discontin ued(Alter tisha therapy) lisinopriL (PRINIVIL,ZEST RIL) 20 mg tablet lisinopril 20 mg tablet TAKE 1 TABLET BY MOUTH EVERY DAY 4 01/06/20 25 Discontin ued(Alter tisha therapy) metoprolol XL (TOPROL-XL) 100 mg 24 hr tablet Take 225 mg by mouth daily 5 01/10/20 25 Discontin ued(Reord er) Active Problems Problem Noted Date Diagnosed Date Persistent atrial fibrillation 01/06/2025 Nonrheumatic aortic valve stenosis 06/16/2022 Morbid (severe) obesity due to excess calories 0 06/16/2022 Coronary artery disease invo lving [place] coronary artery of [place] heart without angina pectoris 01/25/2018 History of coronary artery stent 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) 04/30 Hyperlipidemia 01/27/2014 Seborrheic eczema 01/27/2014 Atherosclerosis [...] on file Legal Sex Male 4:11 AM AIR CARGO AGENT Gender Identity Not on file Sexual Orientation Not on file Last Filed Vital Signs Vital Sign Reading Time Taken Comments Blood Pressure 128/70 01/06/2025 3:45 PM AIR CARGO AGENT Pulse 110 01/06/2025 3:45 PM AIR CARGO AGENT Temperature - - Respiratory Rate - - Oxygen Saturation 95% 01/06/2025 3:45 PM AIR CARGO AGENT Inhaled Oxygen Concentration - - Weight 109.5 kg (241 lb 8 oz) 01/06/2025 3:45 PM AIR CARGO AGENT Height 182.9 cm (6') 01/06/2025 3:45 PM AIR CARGO AGENT Body Mass Index 32.75 01/06/2025 3:45 PM AIR CARGO AGENT Plan of Treatment Not on file Procedures Procedure Name Priority Date/Time Associated Diagnosis Comments ELECTROCARDIOGRAM REPORT Routine 025 4:40 PM AIR CARGO AGENT Coronary artery disease involving [place] coronary artery of [place] heart without angina pectoris Persistent atrial fibrillation (HCC) POCT LIPID PANEL Routine 01/06/2025 4:12 PM AIR CARGO AGENT History of coronary artery stent placement Coronary artery disease involving [place] coronary artery of [place] heart without angina pectoris CARDIOLOGY DOCUMENT SCAN Routine 025 12:18 PM AIR CARGO AGENT from Last 3 Months Results * Electrocardiogram Report (01/06/2025 4:40 PM AIR CARGO AGENT) Ilan Reich MD ECG ORDERABLES Final Re sult * POCT lipid panel (01/06/2025 4:12 PM AIR CARGO AGENT) Cholesterol, POC <100 mg/dL Comment:GLU = 277 HDL, POC 32 mg/dL Triglycerides, POC 77 mg/dL LDL Cholesterol POC 52 mg/dL Chol/HDL Ratio, POC N/A Non-HDL Cholesterol, POC N/A mg/dL Cholesterol Total, POC <100 mg/dL Capillary blood 01/06/2025 4 :12 PM AIR CARGO AGENT Ilan Reich MD POINT OF CARE TEST ORDER DONNELL Final Result * Cardiology Document Scan (01/01/2025 12:18 PM AIR CARGO AGENT) Anatomical Region Laterality Modality Other us Jennie Dunlap MD [facility] PRO CEDURES Final Result from Last [address] [facility] Care Teams Security Police Relationship Specialty Start Date End Date Mohan Ashby MD PCP - General Internal Medicine 01/25/18
--- OUTSIDE RECORDS SUMMARY | 2025-01-13 12:20 | XMS_ITS | Clinical Summary ---
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 ([facility]) 04/30 Hyperlipidemia 01/27/2014 Seborrheic eczema 01/27/2014 Atherosclerosis of coronary artery 01/27/2014 Overview (02/23/2018): Description: s/p two stents Hypertension 01/27/2014 Type 2 diabetes mellitus 01/27/2014 Encounters Date Type Department Care Team Description 01/13/2025 Orders Only [facility] Medical Group Cardiology [address] [place] [address] Jennie Dunlap MD 01/13/2025 Telephone [facility] Medical Group Cardiology [address] [place] [address] Ilan Reich MD 01/13/2025 Telephone [facility] [address] [place] [phone] Ilan Reich MD Shortness of Breath; Rapid Heart Rate; Fatigue 01/09/2025 Telephone [facility] [address] [place] [phone] Ilan Reich MD Med Refill 01/06/2025 4:00 PM VICE PRESIDENT UNDERWRITING Office Visit [facility] [address] [place] [phone] Ilan Reich MD History of coronary artery stent placement (Primary Dx); Nonrheumatic aortic valve stenosis; Coronary artery disease involving citizen potawatomi coronary artery of citizen potawatomi heart without angina pectoris; Persistent atrial fibrillation (HCC) 01/06/2025 Telephone [facility] [address] [place] [address] [address] [place] [phone] Ilan Reich MD 12/20/2024 Telephone [facility] [address] [place] [phone] Ilan Reich MD Shortness of Breath from Last 3 Months Immunizations Immunization Administration Dates Next Due Pneumococcal Polysaccharide PPV23 01/27/2014 Medical History Medical History Date Comments Hypertension Hypertension Chronic obstructive pulmonar y disease (HCC) COPD group home current use of ins ulin (CMS/HCC) (HCC) group home current use of ins ulin - (Added by TW Conv) Family History Medical History Relation Name Comments Heart attack Father 2 Myocardial Infa rction; Heart disease Father 2 Heart Disease - (Added by TW Conv) Stroke Father 2 Stroke Syndrome - (Added by TW Conv) Cancer Mother Cancer - (Added by TW Conv) Diabetes Mother Diabetes Mellit us - (Added by TW Conv) Relation Name [...] on file Legal Sex Male 4:11 AM VICE PRESIDENT UNDERWRITING Gender Identity Not on file Sexual Orientation Not on file Obstetrics History Last Filed Vital Signs Vital Sign Reading Time Taken Comments Blood Pressure 128/70 01/06/2025 3:45 PM VICE PRESIDENT UNDERWRITING Pulse 110 01/06/2025 3:45 PM VICE PRESIDENT UNDERWRITING Temperature - - Respiratory Rate - - Oxygen Saturation 95% 01/06/2025 3:45 PM VICE PRESIDENT UNDERWRITING Inhaled Oxygen Concentration - - Weight 109.5 kg (241 lb 8 oz) 01/06/2025 3:45 PM VICE PRESIDENT UNDERWRITING Height 182.9 cm (6') 01/06/2025 3:45 PM VICE PRESIDENT UNDERWRITING Body Mass Index 32.75 01/06/2025 3:45 PM VICE PRESIDENT UNDERWRITING Plan of Treatment Health Maintenance Due Date [...] Influenza Vaccine (#1) 2024 10/05/2021 Lipid Panel 01/06/2026 01/06/2025, 11/0 07/2023, 06/16/2022, Additional history exists DTaP/Tdap/Td Vaccine (2 - Td or Tdap) 03/11/2032 03/11/2022 Procedures Procedure Name Priority Date/Time Associated Diagnosis Comments ELECTROCARDIOGRAM REPORT Routine 025 4:40 PM VICE PRESIDENT UNDERWRITING Coronary artery disease involving citizen potawatomi coronary artery of citizen potawatomi heart without angina pectoris Persistent atrial fibrillation (HCC) POCT LIPID PANEL Routine 01/06/2025 4:12 PM VICE PRESIDENT UNDERWRITING History of coronary artery stent placement Coronary artery disease involving citizen potawatomi coronary artery of citizen potawatomi heart without angina pectoris CARDIOLOGY DOCUMENT SCAN Routine 025 12:18 PM VICE PRESIDENT UNDERWRITING from Last 3 Months Results * Electrocardiogram Report (01/06/2025 4:40 PM VICE PRESIDENT UNDERWRITING) us Ilan Reich MD ECG ORDERABLES Final Re sult * POCT lipid panel (01/06/2025 4:12 PM VICE PRESIDENT UNDERWRITING) Cholesterol, POC <100 mg/dL Comment:GLU = 277 HDL, POC 32 mg/dL Triglycerides, POC 77 mg/dL LDL Cholesterol POC 52 mg/dL Chol/HDL Ratio, POC N/A Non-HDL Cholesterol, POC N/A mg/dL Cholesterol Total, POC <100 mg/dL Capillary blood 01/06/2025 4 :12 PM VICE PRESIDENT UNDERWRITING Ilan Reich MD POINT OF CARE TEST ORDER DONNELL Final Result * Cardiology Document Scan (01/01/2025 12:18 PM VICE PRESIDENT UNDERWRITING) Anatomical Region Laterality Modality Other us Jennie Dunlap MD CV CARDIAC SERVICES PRO CEDURES Final Result from Last 3 Months Insurance [facility] Care Teams Teaching Dietitian Relationship Specialty Start Date End Date Mohan Ashby MD PCP - General Internal Medicine 01/25/18
--- NOTE | 2025-01-13 13:21 | ECG_ITS ---
Test Date: 2025-01-13 13:25:01 Measurements Intervals [place] Rate: 135 P: 0 MS: 0 QRS: 58 QRSD: 99 T: 115 QT: 301 QTc: 452 Interpretive Statements ATRIAL FLUTTER/TACHYCARDIA WITH RAPID VENTRICULAR RESPONSE POSSIBLE ANTERIOR MYOCARDIAL INFARCTION , OF INDETERMINATE AGE [30 ms Q WAVE IN V3/V4, OR R < 0.2 mV IN V4] Compared to ECG 12/30/2024 14:10:43 HEART RATE IS HIGHER NOW Electronically Signed On 01-14-2025 16:08:03 OYSTER SORTER by Jennie Dunlap M.D.
[2025-01-13 13:42] LABS: Basophils Percent Auto 0.3 % (0.2-1.2); Eosinophils Absolute Auto 0.1 K/mm3 (0-0.3); Eosinophils Percent Auto 0.7 % (0-4.4); Hematocrit 52.4 % (42.0-52.0); Hemoglobin 16.8 g/dL (14.0-18.0); Immature Granulocyte Absolute 0.03 K/mm3 (0.00-0.031); Immature Granulocyte Percent A 0.3 % (0-0.5); Lymphocytes Absolute Auto 1.31 K/mm3 (0.9-3.2); Lymphocytes Percent Auto 12.8 % (18.3-44.2); Mean Corpuscular HGB Conc 32.1 g/dl (32-36); Mean Corpuscular Hemoglobin 28.9 pg (26-34); Mean Platelet Volume 10.2 fl (7.4-10.4); Monocytes Absolute Auto 0.8 K/mm3 (0.1-0.6); Monocytes Percent Auto 8.1 % (2.6-8.5); Neutrophils Percent Auto 77.8 % (45.5-73.1); Platelet Count Result 352 k/mm3 (150-375); Red Blood Count 5.82 M/mm3 (4.6-6.20); Red Cell Distribution Width 14.6 % (11.5-14.5); White Blood Count 10.2 K/mm3 (4.5-10.0)
[2025-01-13 13:53] LABS: Alanine Aminotransferase 21 U/L (6-50); Albumin Level 4.1 g/dL (3.5-5.1); Alkaline Phosphatase 82 U/L (38-126); Anion Gap 11 mmol/L (4-12); Aspartate Amino Transferase 20 U/L (17-59); Bilirubin,Total 0.5 mg/dL (0.2-1.3); Blood Urea Nitrogen 29 mg/dL (9-20); Calcium 9.5 mg/dL (8.4-10.2); Carbon Dioxide 24 mmol/L (22-30); Chloride 107 mmol/L (98-107); Estimated CRCL calculation 89 ml/min; Estimated Glomerular Filt Rate > 60; Glucose 173 mg/dL (65-110); Lipase 41 U/L (23-300); Potassium 4.6 mmol/L (3.4-5.0); Sodium 142 mmol/L (137-145)
[2025-01-13 13:56] LABS: INR 1.1; Prothrombin Time 14.1 Seconds (11.1-14.7)
--- NOTE | 2025-01-13 13:56 | ED.SOB ---
HPI - SOB/Dyspnea General Chief Complaint: Shortness of Breath/Dyspnea Stated Complaint: SOB Time Seen by Provider: 01/13/25 13:55 History of Present Illness HPI Narrative: 64 YEARS OLD WHITE MALE CAME FROM HOME BECAUSE OF DIZZINESS, SHORTNESS OF BREATH FOR WEEKS, LITTLE BIT WORSE TODAY. HISTORY OF DIABETES, HYPERTENSION, HYPERLIPIDEMIA, CORONARY STENTS, AFIB, CURRENTLY ON ASPIRIN, PLAVIX, ELIQUIS. PATIENT MAIN COMPLAIN AT THIS TIME IS OF BEING HERE AND COTTON MOUTH. HE DENIES ANY CHEST PAIN OR SHORTNESS OF BREATH OR ABDOMINAL PAIN AT THIS TIME. Related Data Home Medications ?Medication ?Instructions ?Recorded ?Confirmed ?Last Taken ?Type atorvastatin 40 mg tablet 40 mg PO DAILY 12/12/22 12/30/24 11/30/23 History clopidogrel 75 mg tablet 75 mg PO DAILY 12/12/22 12/30/24 11/30/23 History gemfibrozil 600 mg tablet 600 mg PO BID 12/12/22 12/30/24 11/30/23 History metformin 1,000 mg tablet 1,000 mg PO BID 12/12/22 12/30/24 11/30/23 History Allergies Allergy/AdvReac Type Severity Reaction Status Date / Time No Known Allergies Allergy Verified 12/30/24 11:25 Review of Systems Review of Systems: All systems reviewed & are unremarkable except as noted in HPI and below PMFSH Past Medical History Medical History Tobacco dependence Mild aortic stenosis Hyperlipidemia Hypertension Insulin dependent type 2 diabetes mellitus Coronary artery disease Surgical History Surgical History History of cataract extraction History of coronary artery stent placement mid LAD Family History Family History Father Cerebrovascular accident Other Diabetes mellitus Social History Social History Social History: Surrogate medical decision maker: Janie Lange, spouse ([phone]). Code status: Full code. Smoking packs per day: 1 Smoking cigarettes per day: 20.0 Years smoked: 48 Smoking pack-years: 48.00 Smoking status: Current every day smoker Tobacco type: cigarettes Second hand tobacco smoke exposure: No Alcohol intake: never Alcohol use details: social alcohol use in moderation Substance use: current Substance use type: does not use Do You Feel Safe in your Home?: Yes Lack of Transportation: No Lack of Food: Never True Current Housing: I Have Housing Concerned About Future Housing: No Difficulty Paying Gas/Electric Bills: No Difficulty Paying for Meds: No Currently Unemployed: No Education: High School Diploma/GED Difficulty w/ Childcare or Family Care: No Living arrangements: with family Spiritual care concerns: No Exam Narrative: GENERAL APPEARANCE: WELL-DEVELOPED, WELL-NOURISHED SKIN: NORMAL COLOR HEAD: NORMOCEPHALIC, NONTRAUMATIC EYES: CLEAR CONJUNCTIVA ENT: OROPHARYNX NORMAL, EARS NORMAL, NOSE NORMAL NECK: SUPPLE, NONTENDER CHEST AND RESPIRATORY: AIRWAY PATENT, NO RESPIRATORY DISTRESS, NO ACCESSORY MUSCLE USE HEART: TACHYCARDIA ABDOMEN: SOFT, NONTENDER, NO ORGANOMEGALY, QUIET BOWEL SOUNDS VASCULAR: NORMAL PERIPHERAL PULSES, NORMAL CAPILLARY REFILL. MUSCULOSKELETAL: NORMAL RANGE OF MOTION, NONTENDER BACK NEUROLOGIC: ALERT AND ORIENTED ?3, AUTOMATIC FURNACE OPERATOR IS NORMAL TESTED, NO GROSS MOTOR DEFICIT Course Consultations Consultation #1: YEE CARDIOLOGY NURSE PRACTITIONER BEEN NOTIFIED. Date: 01/13/25 Time: 15:57 Vital Signs Vital signs: Vital Signs Temperature 36.4 C 01/13/25 10:59 Pulse Rate 124 H 01/13/25 10:59 Respiratory Rate 18 01/13/25 10:59 Blood Pressure 98/63 L 01/13/25 10:59 Pulse Oximetry 97 01/13/25 10:59 Temperature 36.4 C 01/13/25 10:59 Pulse Rate 115 H 01/13/25 14:34 Respiratory Rate 15 01/13/25 14:34 Blood Pressure 86/70 L 01/13/25 14:34 Pulse Oximetry 95 01/13/25 14:34 Oxygen Delivery Room Air 01/13/25 14:00 MDM - SOB/Dyspnea MDM Narrative Medical decision making narrative: PATIENT CAME WITH SHORTNESS OF BREATH AND DIZZINESS 4 WEEKS, CURRENTLY ASYMPTOMATIC VITAL SIGNS SHOWING BLOOD PRESSURE 98/63, HEART RATE 124 OTHERWISE WITHIN NORMAL LIMIT PHYSICAL EXAMINATION ABOVE DIFFERENTIAL DIAGNOSIS INCLUDE DEHYDRATION, ELECTROLYTE IMBALANCE, PNEUMONIA, VIRAL SYNDROME, URINARY TRACT INFECTION, A FLUTTER WITH RVR, BLOOD WORKUP TODAY INCLUDES CBC, CMP, BLOOD CULTURE, LACTIC ACID, CRP SHOWED WBC OF 10.2, OTHERWISE INSIGNIFICANT RESPIRATORY PANEL NEGATIVE FOR COVID FLU RSV CHEST X-RAY SHOWED NO ACUTE ABNORMALITIES PATIENT BLOOD PRESSURE WAS SOFT ON ARRIVAL TO THE ED, WHICH COULD BE RELATED TO BLOOD PRESSURE MEDICATION AND ANTI ARRHYTHMIC MEDICATIONS, RECEIVED 2 L FLUID, CURRENTLY BLOOD PRESSURE IS 101/79, HEART RATE A FLUTTER AT 115 BEATS PER MINUTE. . PATIENT WAS SCHEDULED FOR ZENA, AND CARDIAC CARDIOVERSION. DISCUSSED WITH THE ASSEMBLER ON-CALL Differential Diagnosis Differential diagnosis: Likely other ( ABOVE) Medical Records Attestation: I reviewed the patient's medical records. Lab Data Attestation: I reviewed the patient's lab results. 01/13/25 13:31 01/13/25 13:31 Labs: Lab Results 01/13/25 01/13/25 Range/Units 13:31 14:55 WBC 10.2 H (4.5-10.0) K/mm3 RBC 5.82 (4.6-6.20) M/mm3 Hgb 16.8 (14.0-18.0) g/dL Hct 52.4 H (42.0-52.0) % MCV 90.0 (80-100) fl MCH 28.9 (26-34) pg MCHC 32.1 (32-36) g/dl RDW 14.6 H (11.5-14.5) % Plt Count 352 (150-375) k/mm3 MPV 10.2 (7.4-10.4) fl Immature Gran % (Auto) 0.3 (0-0.5) % Neut % (Auto) 77.8 H (45.5-73.1) % Lymph % (Auto) 12.8 L (18.3-44.2) % [place] % (Auto) 8.1 (2.6-8.5) % Eos % (Auto) 0.7 (0-4.4) % Baso % (Auto) 0.3 (0.2-1.2) % Lymph # (Auto) 1.31 (0.9-3.2) K/mm3 [place] # (Auto) 0.8 H (0.1-0.6) K/mm3 Eos # (Auto) 0.1 (0-0.3) K/mm3 Baso # (Auto) 0.0 (0.0-0.1) K/mm3 Abs Immat Gran (auto) 0.03 (0.00-0.031) K/mm3 Absolute Neuts (auto) 8.0 H (1.3-6.7) K/mm3 Absolute Nucleated RBC 0.000 (0.0-0.012) K/mm3 Nucleated RBC % 0.0 (0.0-0.2) % PT 14.1 (11.1-14.7) Seconds INR 1.1 APTT 29.2 (22.3-36.8) Seconds Sodium 142 (137-145) mmol/L Potassium 4.6 (3.4-5.0) mmol/L Chloride 107 (98-107) mmol/L Carbon Dioxide 24 (22-30) mmol/L Anion Gap 11 (4-12) mmol/L BUN 29 H D (9-20) mg/dL Creatinine 0.94 (0.7-1.3) mg/dL Estim Creat Clear Calc 89 ml/min Estimated GFR > 60 (59 - ) Glucose 173 H (65-110) mg/dL Lactic Acid 1.3 (0.7-2.0) mmol/L Calcium 9.5 (8.4-10.2) mg/dL Total Bilirubin 0.5 (0.2-1.3) mg/dL AST 20 (17-59) U/L ALT 21 (6-50) U/L Alkaline Phosphatase 82 (38-126) U/L Troponin I 0.025 (0.000-0.034) ng/mL C-Reactive Protein < 0.5 (<1.0) mg/dL Total Protein 7.0 (6.3-8.2) g/dL Albumin 4.1 (3.5-5.1) g/dL Lipase 41 (23-300) U/L Urine Color Yellow (Yellow) Urine Appearance Clear (Clear) Urine pH 6.0 (5.0-9.0) Ur Specific [place] 1.036 H (1.001-1.035) Urine Protein Trace (Negative) mg/dL Urine Glucose (UA) 3+ H (Negative) mg/dL Urine Ketones Trace H (Negative) mg/dL Ur Blood (Man) Negative (Negative) Urine Nitrate Negative (Negative) Urine Bilirubin Negative (Negative) Urine Urobilinogen 0.2 (<2.0) mg/dL Add Ur Microanalysis Reviewed Leukocyte Esterase Rfl Negative (Negative) MARK/UL Urine RBC 3-5 H (0-2) /hpf Urine WBC 0-5 (0-3) /hpf Ur Squamous Epith Cells None seen (Few) /hpf Urine Bacteria None seen /hpf Urine Casts 6-10 Hyaline Casts 3-4 H (None) /lpf Urine Mucus Present /lpf Influenza A (RT-PCR) Negative (Negative) Influenza B (RT-PCR) Negative (Negative) RSV (RT-PCR) Negative (Negative) SARS-CoV-2 RNA (RT-PCR) Negative (Negative) Imaging Data Radiologist's impression: Impressions Chest X-Ray 01/13/25 15:14 IMPRESSION: No acute cardiopulmonary pathology. ECG Data EKG #1: Attestation: I personally reviewed and interpreted this ECG as follows: ECG completion date: 01/13/25 Interpretation: A FLUTTER AT 835 BEATS PER MINUTE, ANTERIOR MYOCARDIAL INFARCTION OF INDETERMINATE AGE, MODERATE T-WAVE ABNORMALITY,, ABNORMAL EKG Critical Care Time Critical Care Time Critical Care Time: Yes Total Critical Care Time: 30 Discharge Plan Discharge Clinical Impression: Atrial flutter with rapid ventricular response, Hypotension Patient Disposition: Still a Patient Condition: Stable Additional Instructions: ADMIT TO HOSPITALIST Patient Language: Lithuanian Prescriptions: No Action metformin 1,000 mg tablet 1,000 mg PO BID clopidogrel 75 mg tablet 75 mg PO DAILY atorvastatin 40 mg tablet 40 mg PO DAILY gemfibrozil 600 mg tablet 600 mg PO BID furosemide 40 mg Tablet 40 mg PO DAILY 30 Days Qty: 30 1RF spironolactone 25 mg Tablet 25 mg PO QAM 30 Days Qty: 30 1RF Eliquis 5 mg Tablet 5 mg PO Q12HR 30 Days Qty: 60 1RF Jardiance 10 mg Tablet 10 mg PO DAILY 30 Days Qty: 30 1RF sacubitril-valsartan [Entresto] 24-26 mg Tablet 1 tab PO Q12HR 30 Days Qty: 60 1RF metoprolol succinate 100 mg tablet extended release 24 hr 225 mg PO DAILY 30 Days Qty: 68 1RF metoprolol tartrate 75 mg tablet 75 mg PO ONCE Qty: 2 0RF Follow-up/Referrals: Isma,Mohan Duarte MD [Primary Care Provider] -
[2025-01-13 13:57] LABS: Partial Thromboplastin Time 29.2 Seconds (22.3-36.8)
[2025-01-13 14:05] LABS: Troponin I 0.025 ng/mL (0.000-0.034)
[2025-01-13] MEDS: SODIUM CHLORIDE 0.9% IV 1,000 ML 999 ML IV CONT (14:08)
--- NOTE | 2025-01-13 14:37 | PC.NURSE ---
MD Ashraf notified that patient HR is 115, and BP is 86/70 after 1L fluids.
[2025-01-13] MEDS: SODIUM CHLORIDE 0.9% IV 1,000 ML 999 ML (14:51)
[2025-01-13 15:17] LABS: CRP < 0.5 mg/dL (<1.0)
[2025-01-13 15:18] LABS: Lactic Acid Reflex 1.3 mmol/L (0.7-2.0)
[2025-01-13 15:23] LABS: Add Urine Microscopic? YES; Appearance Urine Clear (Clear); Bacteria Urine None Seen /hpf; Bilirubin Urine Negative (Negative); Blood Urine Negative (Negative); Color Urine Yellow (Yellow); Glucose Urine UA 3+ mg/dL (Negative); Ketones Urine Trace mg/dL (Negative); Leukocyte Esterase Ur Negative LEU/UL (Negative); Mucus Urine Present /lpf; Need Manual Microscopic Reviewed; Nitrate Urine Negative (Negative); Protein Urine Trace mg/dL (Negative); Specific Grav Ur 1.036 (1.001-1.035); Squamous Epithelial Cell Urine None Seen /hpf (Few); Urobilinogen Urine 0.2 mg/dL (<2.0); WBC Urine 0-5 /hpf (0-3)
[2025-01-13 15:38] LABS: Influenza A QL RT-PCR Negative (Negative); Influenza B QL RT-PCR Negative (Negative); RSV RNA, RT-PCR Negative (Negative); SARS-CoV-2 RNA PCR Negative (Negative)
--- OUTSIDE RECORDS SUMMARY | 2025-01-13 16:02 | XMS_ITS | Clinical Summary ---
Author Organization [facility] Address [employer] [address] [place] [address] Phone Care Team Providers Care Archaeology Professor Name Role Phone Mohan Ashby MD Primary Care Provider [phone] Ilan Reich MD Unavailable [phone] Allergies No known active allergies Medications aspirin [...] mouth daily. 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
--- OUTSIDE RECORDS SUMMARY | 2025-01-13 16:02 | XMS_ITS | Encounter Summary ---
Author Organization [facility] Healthcare Address [address] [place] [address] Care Team Providers Care Company Marker Name Role Phone Mohan Ashby MD Primary Care Provider [phone] Encounter Details Date Type Department Care Team (Late st Contact Info) Description 01/13/2025 Telephone [facility] Medical Group Cardiology [address] [facility] [address] [place] [address] Ilan Reich MD [address] [place] [address] Social History Tobacco Use Types Packs/Day Years Used Date Smoking Tobacco: Every Day Comments:Smoking History Pac ks/day: 1 Packs Alcohol Use Standard Drinks/Week Comments Yes 0 (1 standard drink = 0.6 oz pur e alcohol) Sex and Gender Information Value Date Recorded Sex Assigned at Not on file Legal Sex Male 4:11 AM ADMINISTRATIVE ASSISTANT Gender Identity Not on file Sexual Orientation Not on file documented as of this encounter Miscellaneous Notes * Telephone Encounter - Johnathan Garza RN - 01/13/2025 10:11 AM ADMINISTRATIVE ASSISTANT VADIM PRESLEY Spoke with pt . Pt [...] able to safely bring pt to ED. NISTRATIVE ASSISTANT * Telephone Encounter - Nelly Duffy - 01/13/2025 10:00 AM CST Pt (Janie ) dropped off some paperwork to be filled out, Stated she also need to talk to a nurse regarding pt health. States pt is having sob and his HR is fast. Please advise! Thanks! [phone] Paperwork placed in the RN basket. NISTRATIVE ASSISTANT documented in this encounter Plan of Treatment Not on file documented as of this encounter Visit Diagnoses Not on filedocumented in this encounter Care Teams Company Marker Relationship Specialty Start Date End Date Mohan Ashby MD PCP - General Internal Medicine 01/25/18 documented as of this encounter
--- OUTSIDE RECORDS SUMMARY | 2025-01-13 16:02 | XMS_ITS | Referral Summary ---
Author Organization [place] [address] [address] [address] Care Team Providers Care Needle Loom Weaver Name Role Phone Mohan Ashby MD Primary Care Provider Encounters Date Type Department Care Team Description 01/13/2025 Orders Only [facility] Medical [facility] Cardiology [address] [place] [address] [address] [place] [phone] Jennie Dunlap MD 01/13/2025 Telephone [facility] Cardiology [address] [place] [address] [address] [place] [phone] Ilan Reich MD 01/13/2025 Telephone [facility] Cardiology [address] [place] [address] [address] [place] [phone] Ilan Reich MD Shortness of Breath; Rapid Heart Rate; Fatigue 01/09/2025 Telephone [facility] Cardiology [address] [place] [address] [address] [place] [phone] Ilan Reich MD Med Refill 01/06/2025 Telephone [facility] Cardiology [address] [place] [address] [address] [place] [phone] Ilan Reich MD 01/06/2025 4:00 PM DRIVER MERCHANDISER Office Visit [facility] Cardiology [address] [place] [address] [address] [place] [phone] Ilan Reich MD History of coronary artery stent placement (Primary Dx); Nonrheumatic aortic valve stenosis; Coronary artery disease involving swinomish coronary artery of swinomish heart without angina pectoris; Persistent atrial fibrillation (HCC) 12/20/2024 Telephone [facility] Medical Group Cardiology [address] [place] [address] Ilan Reich MD Shortness of [...] 0 06/16/2022 Coronary artery disease invo lving swinomish coronary artery of swinomish heart without angina pectoris 01/25/2018 History of coronary artery 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[facility]) 04/30 Hyperlipidemia 01/27/2014 Seborrheic eczema 01/27/2014 Atherosclerosis [...] on file Legal Sex Male 4:11 AM DRIVER MERCHANDISER Gender Identity Not on file Sexual Orientation Not on file Last Filed Vital Signs Vital Sign Reading Time Taken Comments Blood Pressure 128/70 01/06/2025 3:45 PM DRIVER MERCHANDISER Pulse 110 01/06/2025 3:45 PM DRIVER MERCHANDISER Temperature - - Respiratory Rate - - Oxygen Saturation 95% 01/06/2025 3:45 PM DRIVER MERCHANDISER Inhaled Oxygen Concentration - - Weight 109.5 kg (241 lb 8 oz) 01/06/2025 3:45 PM DRIVER MERCHANDISER Height 182.9 cm (6') 01/06/2025 3:45 PM DRIVER MERCHANDISER Body Mass Index 32.75 01/06/2025 3:45 PM DRIVER MERCHANDISER Plan of Treatment Not on file Procedures Procedure Name Priority Date/Time Associated Diagnosis Comments ELECTROCARDIOGRAM REPORT Routine 025 4:40 PM DRIVER MERCHANDISER Coronary artery disease involving swinomish coronary artery of swinomish heart without angina pectoris Persistent atrial fibrillation (HCC) POCT LIPID PANEL Routine 01/06/2025 4:12 PM DRIVER MERCHANDISER History of coronary artery stent placement Coronary artery disease involving swinomish coronary artery of swinomish heart without angina pectoris CARDIOLOGY DOCUMENT SCAN Routine 025 12:18 PM DRIVER MERCHANDISER from Last 3 Months Results * Electrocardiogram Report (01/06/2025 4:40 PM DRIVER MERCHANDISER) us Ilan Reich MD ECG ORDERABLES Final Re sult * POCT lipid panel (01/06/2025 4:12 PM DRIVER MERCHANDISER) Cholesterol, POC <100 mg/dL Comment:GLU = 277 HDL, POC 32 mg/dL Triglycerides, POC 77 mg/dL LDL Cholesterol POC 52 mg/dL Chol/HDL Ratio, POC N/A Non-HDL Cholesterol, POC N/A mg/dL Cholesterol Total, POC <100 mg/dL Capillary blood 01/06/2025 4 :12 PM DRIVER MERCHANDISER us Ilan Reich MD POINT OF CARE TEST ORDER DONNELL Final Result * Cardiology Document Scan (01/01/2025 12:18 PM DRIVER MERCHANDISER) Anatomical Region Laterality Modality Other us Jennie Dunlap MD CV CARDIAC SERVICES PRO CEDURES Final Result from Last [address] [facility] HMO/PPO Address: [address] [address] [facility] H[facility]/PPO Address: [id number] [place] [address] Care Teams Needle Loom Weaver Relationship Specialty Start Date End Date Mohan Ashby MD PCP - General Internal Medicine 01/25/18
--- OUTSIDE RECORDS SUMMARY | 2025-01-13 16:02 | XMS_ITS | Encounter Summary ---
Author Organization [facility] Healthcare Address [address] [place] [address] Care Team Providers Care Script Writer Name Role Phone Mohan Ashby MD Primary Care Provider [phone] Encounter Details Date Type Department Care Team (Late st Contact Info) Description 01/13/2025 Orders Only [facility] Medical Group Cardiology [address] [place] [address] Jennie Dunlap MD [address] [id number] Social History Tobacco Use Types Packs/Day Years Used Date Smoking Tobacco: Every Day Comments:Smoking History Pac ks/day: 1 Packs Alcohol Use Standard Drinks/Week Comments Yes 0 (1 standard drink = 0.6 oz pur e alcohol) Sex and Gender Information Value Date Recorded Sex Assigned at Not on file Legal Sex Male 4:11 AM DINKEY LOCOMOTIVE ENGINEER Gender Identity Not on file Sexual Orientation Not on file documented as of this encounter Plan of Treatment Not on file documented as of this encounter Procedures Procedure Name Priority Date/Time Associated Diagnosis Comments CARDIOLOGY DOCUMENT SCAN Routine 025 12:18 PM DINKEY LOCOMOTIVE ENGINEER documented in this encounter Results * Cardiology Document Scan (01/01/2025 12:18 PM DINKEY LOCOMOTIVE ENGINEER) Anatomical Region Laterality Modality Other [facility] Sarahi Dunlap MD CV CARDIAC SERVICES PRO CEDURES Final Result documented in this encounter Visit Diagnoses Not on filedocumented in this encounter Care Teams Script Writer Relationship Specialty Start Date End Date Mohan Ashby MD PCP - General Internal Medicine 01/25/18 documented as of this encounter
--- OUTSIDE RECORDS SUMMARY | 2025-01-13 16:02 | XMS_ITS | Encounter Summary ---
Author Organization [facility] Healthcare Address [address] [place] [id number] Care Team Providers Care Riveter Hand Name Role Phone Mohan Ashby MD Primary Care Provider Reason for Visit * Reason Onset Date Comments Shortness of Breath 01/13/2025 Rapid Heart Rate 01/13/2025 Fatigue 01/13/2025 Encounter Details Date Type Department Care Team (Late st Contact Info) Description 01/13/2025 Telephone [facility] Cardiology [address] [phone] Ilan Reich MD [address] [place] [address] Shortness of Breath; Rapid Heart Rate; Fatigue Social History Tobacco Use Types Packs/Day Years Used Date Smoking Tobacco: Every Day Comments:Smoking History Pac ks/day: 1 Packs Alcohol Use Standard Drinks/Week Comments Yes 0 (1 standard drink = 0.6 oz pur e alcohol) Sex and Gender Information Value Date Recorded Sex Assigned at Not on file Legal Sex Male 4:11 AM DRAWING MACHINE OPERATOR Gender Identity Not on file Sexual Orientation Not on file documented as of this encounter Miscellaneous Notes * Telephone Encounter - Johnathan Garza RN - 01/13/2025 10:18 AM DRAWING MACHINE OPERATOR See other telephone note from 01/13/25 ING MACHINE OPERATOR * Telephone Encounter - Johnathan Garza RN - 01/13/2025 9:41 AM DRAWING MACHINE OPERATOR LM on VM to call back to discuss ING MACHINE OPERATOR * Telephone Encounter - Elizabeth Dallas - [...] call back. Please advise. Thank you. Contact [phone] ING MACHINE OPERATOR documented in this encounter Plan of Treatment Not on file documented as of this encounter Visit Diagnoses Not on filedocumented in this encounter Care Teams Riveter Hand Relationship Specialty Start Date End Date Mohan Ashby MD PCP - General Internal Medicine 01/25/18 documented as of this encounter
--- OUTSIDE RECORDS SUMMARY | 2025-01-13 16:02 | XMS_ITS | Encounter Summary ---
Author Organization [facility] Healthcare Address [address] [place] [address] Care Team Providers Care Working Foreman Name Role Phone Mohan Ashby MD Primary Care Provider [phone] Reason for Visit * Reason Onset Date Comments Med Refill 01/09/2025 Encounter Details Date Type Department Care Team (Late st Contact Info) Description 01/09/2025 Telephone [facility] Cardiology [address] [phone] Ilan Reich MD [address] [facility] [address] [place] [address] Med Refill Social History Tobacco Use Types Packs/Day Years Used Date Smoking Tobacco: Every Day Comments:Smoking History Pac ks/day: 1 Packs Alcohol Use Standard Drinks/Week Comments Yes 0 (1 standard drink = 0.6 oz pur e alcohol) Sex and Gender Information Value Date Recorded Sex Assigned at Not on file Legal Sex Male 4:11 AM TEST CARRIER Gender Identity Not on file Sexual Orientation Not on file documented as of this encounter Miscellaneous Notes * Telephone Encounter - Jt Gupta MA - 01/10/2025 2:53 PM CST Script has been sent in CARRIER * Telephone Encounter - Kailey Smiley MA - 01/09/2025 9:[address] Reich, Will you be prescribing Troprol XL 225 mg daily? Thank you CARRIER * Telephone Encounter - Elizabeth Dallas - 01/09/2025 9:31 AM CST Patient requesting refill for metoprolol XL (TOPROL-XL) 100 mg with 30 day supply. Please send to [facility] pharmacy. Thank you. Contact [phone] CARRIER documented in this encounter Plan of Treatment Not on file documented as of this encounter Visit Diagnoses Not on filedocumented in this encounter Care Teams Working Foreman Relationship Specialty Start Date End Date Mohan Ashby MD PCP - General Internal Medicine 01/25/18 documented as of this encounter
--- OUTSIDE RECORDS SUMMARY | 2025-01-13 16:02 | XMS_ITS | Clinical Summary ---
Author Organization [facility] [address] Address [address] [place] [address] Care Team Providers Care Dean Of Faculty Name Role Phone Mohan Ashby MD Primary Care Provider [phone] Allergies No known active allergies Medications atorvastatin [...] 0 06/16/2022 Coronary artery disease invo lving emmonak coronary artery of emmonak heart without angina pectoris 01/25/2018 History of coronary artery stent placement 01/25 thread twister current use of insulin ([facility]) 04/30 Hyperlipidemia 01/27/2014 Seborrheic eczema 01/27/2014 Atherosclerosis of coronary artery 01/27/2014 Overview (02/23/2018): Description: s/p two stents Hypertension 01/27/2014 Type 2 diabetes mellitus 01/27/2014 Encounters Date Type Department Care Team Description 01/13/2025 Orders Only [facility] Cardiology [address] [place] [address] Jennie Dunlap MD 01/13/2025 Telephone [facility] Cardiology [address] [place] [address] Ilan Reich MD 01/13/2025 Telephone [facility] Cardiology [address] [place] [phone] Ilan Reich MD Shortness of Breath; Rapid Heart Rate; Fatigue 01/09/2025 Telephone [facility] Cardiology [address] [place] [phone] Ilan Reich MD Med Refill 01/06/2025 4:00 PM AGRICULTURE SALES ACCOUNT MANAGER Office Visit [facility] Cardiology [facility] [address] [place] [phone] Ilan Reich MD History of coronary artery stent placement (Primary Dx); Nonrheumatic aortic valve stenosis; Coronary artery disease involving emmonak coronary artery of emmonak heart without angina pectoris; Persistent atrial fibrillation (HCC) 01/06/2025 Telephone [facility] Cardiology [address] [place] [address] [address] [place] [phone] Ilan Reich MD 12/20/2024 Telephone [facility] Cardiology [address] [place] [phone] Ilan Reich MD Shortness of Breath from Last 3 Months Immunizations Immunization Administration Dates Next Due Pneumococcal Polysaccharide PPV23 01/27/2014 Medical History Medical History Date Comments Hypertension Hypertension Chronic obstructive pulmonar y disease (HCC) COPD retirement current use of ins ulin (CMS/HCC) (HCC) retirement current use of ins ulin - (Added [...] on file Legal Sex Male 4:11 AM AGRICULTURE SALES ACCOUNT MANAGER Gender Identity Not on file Sexual Orientation Not on file Obstetrics History Last Filed Vital Signs Vital Sign Reading Time Taken Comments Blood Pressure 128/70 01/06/2025 3:45 PM AGRICULTURE SALES ACCOUNT MANAGER Pulse 110 01/06/2025 3:45 PM AGRICULTURE SALES ACCOUNT MANAGER Temperature - - Respiratory Rate - - Oxygen Saturation 95% 01/06/2025 3:45 PM AGRICULTURE SALES ACCOUNT MANAGER Inhaled Oxygen Concentration - - Weight 109.5 kg (241 lb 8 oz) 01/06/2025 3:45 PM AGRICULTURE SALES ACCOUNT MANAGER Height 182.9 cm (6') 01/06/2025 3:45 PM AGRICULTURE SALES ACCOUNT MANAGER Body Mass Index 32.75 01/06/2025 3:45 PM AGRICULTURE SALES ACCOUNT MANAGER Plan of Treatment Health Maintenance Due Date [...] Comments ELECTROCARDIOGRAM REPORT Routine 025 4:40 PM AGRICULTURE SALES ACCOUNT MANAGER Coronary artery disease involving emmonak coronary artery of emmonak heart without angina pectoris Persistent atrial fibrillation (HCC) POCT LIPID PANEL Routine 01/06/2025 4:12 PM AGRICULTURE SALES ACCOUNT MANAGER History of coronary artery stent placement Coronary artery disease involving emmonak coronary artery of emmonak heart without angina pectoris CARDIOLOGY DOCUMENT SCAN Routine 025 12:18 PM AGRICULTURE SALES ACCOUNT MANAGER from Last 3 Months Results * Electrocardiogram Report (01/06/2025 4:40 PM AGRICULTURE SALES ACCOUNT MANAGER) us Ilan Reich MD ECG ORDERABLES Final Re sult * POCT lipid panel (01/06/2025 4:12 PM AGRICULTURE SALES ACCOUNT MANAGER) Cholesterol, POC <100 mg/dL Comment:GLU = 277 HDL, POC 32 mg/dL Triglycerides, POC 77 mg/dL LDL Cholesterol POC 52 mg/dL Chol/HDL Ratio, POC N/A Non-HDL Cholesterol, POC N/A mg/dL Cholesterol Total, POC <100 mg/dL Capillary blood 01/06/2025 4 :12 PM AGRICULTURE SALES ACCOUNT MANAGER us Ilan Reich MD POINT OF CARE TEST ORDER DONNELL Final Result * Cardiology Document Scan (01/01/2025 12:18 PM AGRICULTURE SALES ACCOUNT MANAGER) Anatomical Region Laterality Modality Other us Jennie Dunlap MD [facility] PRO CEDURES Final Result from Last 3 Months Insurance [facility] Care Teams Dean Of Faculty Relationship Specialty Start Date End Date Mohan Ashby MD PCP - General Internal Medicine 01/25/18
--- OUTSIDE RECORDS SUMMARY | 2025-01-13 16:02 | XMS_ITS | Encounter Summary ---
Author Organization [facility] Healthcare Address [address] [place] [address] Care Team Providers Care Tractor Driver Teamster Name Role Phone Mohan Ashby MD Primary Care Provider [phone] Reason for Visit * Reason Onset Date Comments Shortness of Breath 12/20/2024 Encounter Details Date Type Department Care Team (Late st Contact Info) Description 12/20/2024 Telephone [facility] Medical Group Cardiology [address] [facility] [address] [phone] Ilan Reich MD [address] [facility] [address] [place] [address] Shortness of Breath Social History Tobacco Use Types Packs/Day Years Used Date Smoking Tobacco: Every Day Comments:Smoking History Pac ks/day: 1 Packs Alcohol Use Standard Drinks/Week Comments Yes 0 (1 standard drink = 0.6 oz pur e alcohol) Sex and Gender Information Value Date Recorded Sex Assigned at Not on file Legal Sex Male 4:11 AM TWISTER HAND Gender Identity Not on file Sexual Orientation Not on file documented as of this encounter Miscellaneous Notes * Telephone Encounter - Gosia Cordero RN - 12/20/2024 2:17 PM TWISTER HAND Spoke with pt, he had some [...] to call sooner with any further concerns. TER HAND * Telephone Encounter - Elizabeth Dallas - 12/20/2024 1:48 PM CST Nesha (pts spouse) states that the patient just arrived home and he is experiencing some intermittent chest pain. Please advise. Thank you. Contact [phone] TER HAND * Telephone Encounter - Gosia Cordero RN - 12/20/2024 10:15 AM TWISTER HAND Spoke with pts regarding her message she is going to call pts PCP about his SOB when he is in the cold. She is not aware of pt having any cardiac concerns like CP. Scheduled pt for overdue f/u appt with F while I had her on the phone. TER HAND * Telephone Encounter - Elizabeth Dallas - 12/20/2024 9:52 AM CST Nesha (pts spouse) states that the patient has been having SOB when he gets in the cold. States that he has been experiencing it for the past 3 weeks. States that he has been on antibiotics for a cold for two weeks. Please advise. Thank you. Contact [phone] TER HAND documented in this encounter Plan of Treatment Not on file documented as of this encounter Visit Diagnoses Not on filedocumented in this encounter Care Teams Tractor Driver Teamster Relationship Specialty Start Date End Date Mohan Ashby MD PCP - General Internal Medicine 01/25/18 documented as of this encounter
[2025-01-13] MEDS: SODIUM CHLORIDE 0.9% IV 1,000 ML 150 ML IV CONT (16:33)
[2025-01-13 17:04] LABS: Troponin I 0.016 ng/mL (0.000-0.034)
--- NOTE | 2025-01-13 17:36 | P.HP_ITS ---
H&P: HPI History of Present Illness Date/Time: 01/13/25 17:36 Chief Complaint: shortness of breath/dyspnea Narrative: This is a 64-year-old male with a significant past medical history of diabetes, congestive heart failure with reduced ejection fraction Of 30-35%, hypertension, hyperlipidemia, AFib/a flutter on anticoagulation- Eliquis, coronary artery disease with coronary stent placement, myocardial infarction, COPD who presented to the hospital with complaints of shortness of breath/ dyspnea and dizziness that has persisted for a few days. patient had planned follow-up of a ZENA and cardioversion on an outpatient basis with Cardiology team. He denies any fever, chills, nausea, vomiting, diarrhea, abdominal pain, chest pain. he reports shortness of breath with activity, lightheadedness/ dizziness, tachycardia. Workup in the hospital included a chest x-ray which was negative. Initial labs showed a white blood cell count of 10.2, INR 1.1, blood sugar 173, troponin negative x2. UA was obtained which shown a urine specific gravity of 1.036, 3+ urine glucose, trace ketone, 3-5 urine RBC, 3-4 hyaline casts, otherwise unremarkable. Respiratory panel was negative for influenza a and B, RSV, COVID. Blood cultures were obtained and pending. Last echo was reviewed which shown reduced LV systolic function with an estimated EF of 30- 35%, reduced RV systolic function, severe aortic valve calcification and stenosis severely calcified move mitral valve. EKG today shown atrial flutter with RVR with a rate of 135, QTC 452. Cardiology consulted. Review of Systems Review of Systems: All systems reviewed & are unremarkable except as noted in HPI and below [facility] Past Medical History Medical History Myocardial infarction COPD (chronic obstructive pulmonary disease) Cataracts, bilateral Tobacco dependence Mild aortic stenosis Hyperlipidemia Hypertension Insulin dependent type 2 diabetes mellitus Coronary artery disease Surgical History Surgical History S/P coronary artery stent placement H/O cataract removal with insertion of prosthetic lens History of cataract extraction History of coronary artery stent placement mid LAD Family History Family History Father Cerebrovascular accident Other Diabetes mellitus Social History Social History Social History: Surrogate medical decision maker: Janie Lange, spouse ([phone]). Code status: Full code. Smoking packs per day: 1 Smoking cigarettes per day: 20.0 Years smoked: 48 Smoking pack-years: 48.00 Smoking status: Current every day smoker Tobacco type: cigarettes Second hand tobacco smoke exposure: No Alcohol intake: never Alcohol use details: social alcohol use in moderation Substance use: current Substance use type: does not use Do You Feel Safe in your Home?: Yes Lack of Transportation: No Lack of Food: Never True Current Housing: I Have Housing Concerned About Future Housing: No Difficulty Paying Gas/Electric Bills: No Difficulty Paying for Meds: No Currently Unemployed: No Education: High School Diploma/GED Difficulty w/ Childcare or Family Care: No Living arrangements: with family Spiritual care concerns: No Meds Home Medications and Allergies Home Medications ?Medication ?Instructions ?Recorded ?Confirmed ?Type atorvastatin 40 mg tablet 40 mg PO DAILY 12/12/22 01/13/25 History clopidogrel 75 mg tablet 75 mg PO DAILY 12/12/22 01/13/25 History gemfibrozil 600 mg tablet 600 mg PO BID 12/12/22 01/13/25 History metformin 1,000 mg tablet 1,000 mg PO BID 12/12/22 01/13/25 History apixaban 5 mg tablet (Eliquis) 5 mg PO Q12HR 30 days #60 tabs 01/03/25 01/13/25 Rx empagliflozin 10 mg tablet 10 mg PO DAILY 30 days #30 tabs 01/03/25 01/13/25 Rx (Jardiance) furosemide 40 mg tablet 40 mg PO DAILY 30 days #30 tabs 01/03/25 01/13/25 Rx metoprolol succinate 100 mg 225 mg (2.25 x 100 mg) PO DAILY 30 01/03/25 01/13/25 Rx tablet,extended release 24 hr days #68 tabs metoprolol tartrate 75 mg tablet 75 mg PO ONCE #2 tabs 01/03/25 01/13/25 Rx sacubitril 24 mg-valsartan 26 mg 1 tab PO Q12HR 30 days #60 tabs 01/03/25 Rx tablet (Entresto) spironolactone 25 mg tablet 25 mg PO QAM 30 days #30 tabs 01/03/25 01/13/25 Rx Allergies Allergy/AdvReac Type Severity Reaction Status Date / Time No Known Allergies Allergy Verified 12/30/24 11:25 Vital Signs Vital Signs - 24 hr 01/13/25 10:59 01/13/25 13:55 01/13/25 14:00 Temperature 97.6 F Pulse Rate 124 H 134 H Respiratory Rate 18 15 Blood Pressure 98/63 L 81/62 L Pulse Oximetry 97 95 95 Oxygen Delivery Room Air Room Air 01/13/25 14:34 01/13/25 14:53 01/13/25 14:56 Temperature Pulse Rate 115 H 120 H 115 H Respiratory Rate 15 20 23 H Blood Pressure 86/70 L 92/75 L Pulse Oximetry 95 92 94 Oxygen Delivery 01/13/25 15:00 01/13/25 15:01 01/13/25 15:16 Temperature Pulse Rate 111 H 109 H 110 H Respiratory Rate 15 15 19 Blood Pressure 91/67 L Pulse Oximetry 97 97 Oxygen Delivery 01/13/25 15:17 01/13/25 15:21 01/13/25 15:25 Temperature Pulse Rate 111 H 107 H 114 H Respiratory Rate 20 23 H 19 Blood Pressure 106/79 98/77 L 100/80 Pulse Oximetry 98 Oxygen Delivery 01/13/25 15:56 01/13/25 16:00 01/13/25 16:01 Temperature Pulse Rate 120 H 112 H 112 H Respiratory Rate 10 L 19 15 Blood Pressure 112/79 Pulse Oximetry 93 96 95 Oxygen Delivery 01/13/25 16:06 01/13/25 16:10 01/13/25 16:15 Temperature Pulse Rate 117 H 116 H 115 H Respiratory Rate 12 15 16 Blood Pressure 108/75 99/81 L 103/77 Pulse Oximetry 96 Oxygen Delivery 01/13/25 16:16 01/13/25 16:20 01/13/25 16:30 Temperature Pulse Rate 115 H 115 H 116 H Respiratory Rate 20 16 15 Blood Pressure 103/76 Pulse Oximetry 94 Oxygen Delivery 01/13/25 16:31 01/13/25 16:35 Temperature Pulse Rate 120 H 116 H Respiratory Rate 11 L 18 Blood Pressure 99/81 L 116/92 H Pulse Oximetry 95 96 Oxygen Delivery Exam Narrative: General: In no acute distress, well nourished Head: atraumatic, no encephalopathy Eyes:, PERRLA, sclera clear ENT: moist mucous membranes, nasal passages clear Neck: supple, no JVD, no adenopathy, trachea midline Cardiac: Normal S1 and S2. AFib/a flutter with a rate of 120 on monitor, murmur noted, no gallops or friction rubs, peripheral pulses intact. Respiratory: Lungs clear to auscultation, no adventitious lung sounds, currently on room air Gastrointestinal: soft, non-distended, non-tender, normoactive bowel sounds. : voiding without difficulty. Extremities: moves all extremities well, mild lower extremity edema Skin: clean, dry, intact. No wounds or lesions. Neuro: Alert and oriented x4, cranial nerves intact, no neuro deficits. Psych: normal mood, normal affect, interactive H&P: Results Labs Labs: Short CBC 01/13/25 Range/Units 13:31 WBC 10.2 H (4.5-10.0) K/mm3 Hgb 16.8 (14.0-18.0) g/dL Hct 52.4 H (42.0-52.0) % Plt Count 352 (150-375) k/mm3 BMP 01/13/25 13:31 Sodium 142 Potassium 4.6 Chloride 107 Carbon Dioxide 24 BUN 29 H D Creatinine 0.94 Glucose 173 H Calcium 9.5 Cardiac Enzymes 01/13/25 01/13/25 Range/Units 13:31 16:26 Troponin I 0.025 0.016 D (0.000-0.034) ng/mL Liver Function 01/13/25 Range/Units 13:31 Total Bilirubin 0.5 (0.2-1.3) mg/dL AST 20 (17-59) U/L ALT 21 (6-50) U/L Alkaline Phosphatase 82 (38-126) U/L Albumin 4.1 (3.5-5.1) g/dL Urine 01/13/25 Range/Units 14:55 Urine Color Yellow (Yellow) Urine Appearance Clear (Clear) Urine pH 6.0 (5.0-9.0) Ur Specific [place] 1.036 H (1.001-1.035) Urine Protein Trace (Negative) mg/dL Urine Glucose (UA) 3+ H (Negative) mg/dL Imaging Chest x-ray: Radiologist's impression: XR chest 2V Ordering provider: Nyla Astorga APRN History: 64 years Male with . SOB, dizzy . Comparison: December 30, 2024 FINDINGS: MEDIASTINUM: The cardiac silhouette is not enlarged. LUNGS: No infiltrates, effusions or pneumothorax. OTHER: No free air under the diaphragm. Degenerative changes of the spine. IMPRESSION: No acute cardiopulmonary pathology. Reviewed, dictated and finalized at location A. GER MAINTENANCE Assessment and Plan Assessment and plan (1) Atrial flutter with rapid ventricular response: Code(s): I48.92 - Unspecified atrial flutter Status: Acute Assessment and Plan: * EKG showing atrial flutter /tachycardia with rapid ventricular response, rate of 135, QTC 452 * ? plan for ZENA and cardioversion tomorrow with Cardiology * cardiology following * NPO after midnight for potential ZENA and cardioversion * continue telemetry monitoring * troponin negative x2 * admit to IMU status (2) Acute heart failure with reduced ejection fraction (HFrEF, <= 40%): Code(s): I50.21 - Acute systolic (congestive) heart failure Status: Acute Assessment and Plan: * last echo reviewed from 12/31/2024 showed LV systolic function with moderately reduced EF of 30-35%, right ventricular systolic function reduced, moderately enlarged left atrial and right atrial chamber, severe aortic valve calcification with moderate to severe aortic valve stenosis, severely calcified mitral valve * continue Jardiance, Lasix, metoprolol, Entresto, spironolactone * continue cardiac monitoring (3) HTN (hypertension): Code(s): I10 - Essential (primary) hypertension Status: Acute Assessment and Plan: * blood pressure ranging 102/78 to 117/78 * continue Entresto and spironolactone (4) Hyperlipidemia: Code(s): E78.5 - Hyperlipidemia, unspecified Status: Acute Assessment and Plan: * continue atorvastatin (5) Diabetes mellitus: Code(s): E11.9 - Type 2 diabetes mellitus without complications Status: Acute Assessment and Plan: * Blood sugars ranging 173-256 * Hgb A1C 8.5 on 12/30/2024 * Accu checks AC/HS * high-dose SSI ordered * hypoglycemic protocol in place * currently on heart healthy however will be NPO after midnight and then will need diabetic diet post cardioversion * Hold metformin (6) Tobacco dependence: Code(s): F17.200 - Nicotine dependence, unspecified, uncomplicated Status: Acute Assessment and Plan: * nicotine patch ordered Quality VTE Prophylaxis VTE prophylaxis: pharmacologic ordered Hospitalist [facility] Advance Care Plan I have confirmed that the patient's Advanced Care Plan is present, code status is documented, or surrogate decision maker is listed in patient medical record.: Yes Medication Reconciliation I have utilized all available resources to obtain, update and review the patients current medications (includes all prescriptions, OTC, herbals, cannabis, and nutritional supplements).: Yes
[2025-01-13 20:11] LABS: Troponin I 0.016 ng/mL (0.000-0.034)
[2025-01-13 23:52] LABS: Glucose Point of Care 120 mg/dl (65-105)
[2025-01-14] VITALS (24 sets, daily range): BP systolic 82–168; BP diastolic 62–86; PULSE 73–137; RESP 12–20; TEMP 36.6–36.8; O2SAT 90–99; BMI 32.5
[2025-01-14] MEDS: APIXABAN 5 MG TABLET PO ×3 (00:04→22:04)
[2025-01-14] MEDS: SACUBITRIL/VALSARTAN 24-26 MG TABLET 1 TAB PO ×2 (00:04→09:41)
--- NOTE | 2025-01-14 02:54 | PC.NURSE ---
please discuss atorvastatin and gemfibrazole interaction with cardiology in the morning.
[2025-01-14 05:13] LABS: Basophils Percent Auto 0.5 % (0.2-1.2); Eosinophils Absolute Auto 0.1 K/mm3 (0-0.3); Eosinophils Percent Auto 1.2 % (0-4.4); Hematocrit 48.2 % (42.0-52.0); Hemoglobin 15.3 g/dL (14.0-18.0); Immature Granulocyte Absolute 0.02 K/mm3 (0.00-0.031); Immature Granulocyte Percent A 0.2 % (0-0.5); Lymphocytes Absolute Auto 1.41 K/mm3 (0.9-3.2); Lymphocytes Percent Auto 17.3 % (18.3-44.2); Mean Corpuscular HGB Conc 31.7 g/dl (32-36); Mean Corpuscular Hemoglobin 28.7 pg (26-34); Mean Corpuscular Volume 90.3 fl (80-100); Mean Platelet Volume 10.2 fl (7.4-10.4); Monocytes Absolute Auto 0.8 K/mm3 (0.1-0.6); Monocytes Percent Auto 9.3 % (2.6-8.5); Neutrophils Absolute Auto 5.8 K/mm3 (1.3-6.7); Neutrophils Percent Auto 71.5 % (45.5-73.1); Platelet Count Result 297 k/mm3 (150-375); Red Blood Count 5.34 M/mm3 (4.6-6.20); Red Cell Distribution Width 14.7 % (11.5-14.5); White Blood Count 8.2 K/mm3 (4.5-10.0)
[2025-01-14 05:21] LABS: Alanine Aminotransferase 20 U/L (6-50); Albumin Level 3.3 g/dL (3.5-5.1); Alkaline Phosphatase 71 U/L (38-126); Anion Gap 8 mmol/L (4-12); Aspartate Amino Transferase 23 U/L (17-59); Bilirubin,Total 0.4 mg/dL (0.2-1.3); Blood Urea Nitrogen 24 mg/dL (9-20); Calcium 8.8 mg/dL (8.4-10.2); Carbon Dioxide 21 mmol/L (22-30); Chloride 114 mmol/L (98-107); Estimated CRCL calculation 129 ml/min; Estimated Glomerular Filt Rate > 60; Glucose 76 mg/dL (65-110); Potassium 3.7 mmol/L (3.4-5.0); Sodium 143 mmol/L (137-145)
[2025-01-14 08:22] LABS: Glucose Point of Care 79 mg/dl (65-105)
--- NOTE | 2025-01-14 08:59 | PC.NURSE ---
Consulted Araseli Blair about pt home medications and the hold on gemfibrozil with the atorvastatin. She states if pt takes them regularly at home together then it is okay to continue. Pharmacy updated.
--- NOTE | 2025-01-14 09:30 | WPDANESEPP ---
Anes - Eval Pre Procedure Date/Time: 01/14/25 09:30 Pre Op Diagnosis: A FLUTTER WITH RVR, HYPOTENSION Patient Data Age: 64 Gender: M Height: 1.83 m Weight: 109 kg Last Vital Signs Temp 36.6 C 01/14/25 05:07 Pulse 134 H 01/14/25 08:13 Resp 20 01/14/25 08:13 BP 106/78 01/14/25 08:13 Pulse Ox 94 01/14/25 08:22 O2 Del Method Room Air 01/14/25 08:22 O2 Flow Rate 2 01/14/25 04:49 Allergies Allergy/AdvReac Type Severity Reaction Status Date / Time No Known Allergies Allergy Verified 12/30/24 11:25 Home Medications ?Medication ?Instructions ?Recorded ?Confirmed ?Type atorvastatin 40 mg tablet 40 mg PO DAILY 12/12/22 01/13/25 History clopidogrel 75 mg tablet 75 mg PO DAILY 12/12/22 01/13/25 History gemfibrozil 600 mg tablet 600 mg PO BID 12/12/22 01/13/25 History metformin 1,000 mg tablet 1,000 mg PO BID 12/12/22 01/13/25 History apixaban 5 mg tablet (Eliquis) 5 mg PO Q12HR 30 days #60 tabs 01/03/25 01/13/25 Rx empagliflozin 10 mg tablet 10 mg PO DAILY 30 days #30 tabs 01/03/25 01/13/25 Rx (Jardiance) furosemide 40 mg tablet 40 mg PO DAILY 30 days #30 tabs 01/03/25 01/13/25 Rx metoprolol succinate 100 mg 225 mg (2.25 x 100 mg) PO DAILY 30 01/03/25 01/13/25 Rx tablet,extended release 24 hr days #68 tabs metoprolol tartrate 75 mg tablet 75 mg PO ONCE #2 tabs 01/03/25 01/13/25 Rx sacubitril 24 mg-valsartan 26 mg 1 tab PO Q12HR 30 days #60 tabs 01/03/25 01/13/25 Rx tablet (Entresto) spironolactone 25 mg tablet 25 mg PO QAM 30 days #30 tabs 01/03/25 01/13/25 Rx Laboratory Tests 01/13/25 01/13/25 01/13/25 13:31 14:55 16:26 WBC 10.2 H K/mm3 (4.5-10.0) RBC 5.82 M/mm3 (4.6-6.20) Hgb 16.8 g/dL (14.0-18.0) Hct 52.4 H % (42.0-52.0) MCV 90.0 fl (80-100) MCH 28.9 pg (26-34) MCHC 32.1 g/dl (32-36) RDW 14.6 H % (11.5-14.5) Plt Count 352 k/mm3 (150-375) MPV 10.2 fl (7.4-10.4) Immature Gran % (Auto) 0.3 % (0-0.5) Neut % (Auto) 77.8 H % (45.5-73.1) Lymph % (Auto) 12.8 L % (18.3-44.2) [place] % (Auto) 8.1 % (2.6-8.5) Eos % (Auto) 0.7 % (0-4.4) Baso % (Auto) 0.3 % (0.2-1.2) Lymph # (Auto) 1.31 K/mm3 (0.9-3.2) [place] # (Auto) 0.8 H K/mm3 (0.1-0.6) Eos # (Auto) 0.1 K/mm3 (0-0.3) Baso # (Auto) 0.0 K/mm3 (0.0-0.1) Abs Immat Gran (auto) 0.03 K/mm3 (0.00-0.031) Absolute Neuts (auto) 8.0 H K/mm3 (1.3-6.7) Absolute Nucleated RBC 0.000 K/mm3 (0.0-0.012) Nucleated RBC % 0.0 % (0.0-0.2) PT 14.1 Seconds (11.1-14.7) INR 1.1 APTT 29.2 Seconds (22.3-36.8) Sodium 142 mmol/L (137-145) Potassium 4.6 mmol/L (3.4-5.0) Chloride 107 mmol/L (98-107) Carbon Dioxide 24 mmol/L (22-30) Anion Gap 11 mmol/L (4-12) BUN 29 H D mg/dL (9-20) Creatinine 0.94 mg/dL (0.7-1.3) Estim Creat Clear Calc 89 ml/min Estimated GFR > 60 (59 - ) Glucose 173 H mg/dL (65-110) POC Capillary Glucose Lactic Acid 1.3 mmol/L (0.7-2.0) Calcium 9.5 mg/dL (8.4-10.2) Magnesium Total Bilirubin 0.5 mg/dL (0.2-1.3) AST 20 U/L (17-59) ALT 21 U/L (6-50) Alkaline Phosphatase 82 U/L (38-126) Troponin I 0.025 ng/mL 0.016 D ng/mL (0.000-0.034) (0.000-0.034) C-Reactive Protein < 0.5 mg/dL (<1.0) Total Protein 7.0 g/dL (6.3-8.2) Albumin 4.1 g/dL (3.5-5.1) Lipase 41 U/L (23-300) Urine Color Yellow (Yellow) Urine Appearance Clear (Clear) Urine pH 6.0 (5.0-9.0) Ur Specific [place] 1.036 H (1.001-1.035) Urine Protein Trace mg/dL (Negative) Urine Glucose (UA) 3+ H mg/dL (Negative) Urine Ketones Trace H mg/dL (Negative) Ur Blood (Man) Negative (Negative) Urine Nitrate Negative (Negative) Urine Bilirubin Negative (Negative) Urine Urobilinogen 0.2 mg/dL (<2.0) Add Ur Microanalysis Reviewed Leukocyte Esterase Rfl Negative MARK/UL (Negative) Urine RBC 3-5 H /hpf (0-2) Urine WBC 0-5 /hpf (0-3) Ur Squamous Epith Cells None seen /hpf (Few) Urine Bacteria None seen /hpf Urine Casts 6-10 Hyaline Casts 3-4 H /lpf (None) Urine Mucus Present /lpf Influenza A (RT-PCR) Negative (Negative) Influenza B (RT-PCR) Negative (Negative) RSV (RT-PCR) Negative (Negative) SARS-CoV-2 RNA (RT-PCR) Negative (Negative) 01/13/25 01/13/25 01/14/25 19:32 23:49 05:05 WBC 8.2 K/mm3 (4.5-10.0) RBC 5.34 M/mm3 (4.6-6.20) Hgb 15.3 g/dL (14.0-18.0) Hct 48.2 % (42.0-52.0) MCV 90.3 fl (80-100) MCH 28.7 pg (26-34) MCHC 31.7 L g/dl (32-36) RDW 14.7 H % (11.5-14.5) Plt Count 297 k/mm3 (150-375) MPV 10.2 fl (7.4-10.4) Immature Gran % (Auto) 0.2 % (0-0.5) Neut % (Auto) 71.5 % (45.5-73.1) Lymph % (Auto) 17.3 L % (18.3-44.2) [place] % (Auto) 9.3 H % (2.6-8.5) Eos % (Auto) 1.2 % (0-4.4) Baso % (Auto) 0.5 % (0.2-1.2) Lymph # (Auto) 1.41 K/mm3 (0.9-3.2) [place] # (Auto) 0.8 H K/mm3 (0.1-0.6) Eos # (Auto) 0.1 K/mm3 (0-0.3) Baso # (Auto) 0.0 K/mm3 (0.0-0.1) Abs Immat Gran (auto) 0.02 K/mm3 (0.00-0.031) Absolute Neuts (auto) 5.8 K/mm3 (1.3-6.7) Absolute Nucleated RBC 0.000 K/mm3 (0.0-0.012) Nucleated RBC % 0.0 % (0.0-0.2) PT INR APTT Sodium 143 mmol/L (137-145) Potassium 3.7 mmol/L (3.4-5.0) Chloride 114 H mmol/L (98-107) Carbon Dioxide 21 L mmol/L (22-30) Anion Gap 8 mmol/L (4-12) BUN 24 H mg/dL (9-20) Creatinine 0.63 L mg/dL (0.7-1.3) Estim Creat Clear Calc 129 ml/min Estimated GFR > 60 (59 - ) Glucose 76 mg/dL (65-110) POC Capillary Glucose 120 H mg/dl (65-105) Lactic Acid Calcium 8.8 mg/dL (8.4-10.2) Magnesium 2.0 mg/dL (1.6-2.3) Total Bilirubin 0.4 mg/dL (0.2-1.3) AST 23 U/L (17-59) ALT 20 U/L (6-50) Alkaline Phosphatase 71 U/L (38-126) Troponin I 0.016 ng/mL (0.000-0.034) C-Reactive Protein Total Protein 6.0 L g/dL (6.3-8.2) Albumin 3.3 L g/dL (3.5-5.1) Lipase Urine Color Urine Appearance Urine pH Ur Specific [place] Urine Protein Urine Glucose (UA) Urine Ketones Ur Blood (Man) Urine Nitrate Urine Bilirubin Urine Urobilinogen Add Ur Microanalysis Leukocyte Esterase Rfl Urine RBC Urine WBC Ur Squamous Epith Cells Urine Bacteria Urine Casts Hyaline Casts Urine Mucus Influenza A (RT-PCR) Influenza B (RT-PCR) RSV (RT-PCR) SARS-CoV-2 RNA (RT-PCR) 01/14/25 08:17 WBC RBC Hgb Hct MCV MCH MCHC RDW Plt Count MPV Immature Gran % (Auto) Neut % (Auto) Lymph % (Auto) [place] % (Auto) Eos % (Auto) Baso % (Auto) Lymph # (Auto) [place] # (Auto) Eos # (Auto) Baso # (Auto) Abs Immat Gran (auto) Absolute Neuts (auto) Absolute Nucleated RBC Nucleated RBC % PT INR APTT Sodium Potassium Chloride Carbon Dioxide Anion Gap BUN Creatinine Estim Creat Clear Calc Estimated GFR Glucose POC Capillary Glucose 79 mg/dl (65-105) Lactic Acid Calcium Magnesium Total Bilirubin AST ALT Alkaline Phosphatase Troponin I C-Reactive Protein Total Protein Albumin Lipase Urine Color Urine Appearance Urine pH Ur Specific [place] Urine Protein Urine Glucose (UA) Urine Ketones Ur Blood (Man) Urine Nitrate Urine Bilirubin Urine Urobilinogen Add Ur Microanalysis Leukocyte Esterase Rfl Urine RBC Urine WBC Ur Squamous Epith Cells Urine Bacteria Urine Casts Hyaline Casts Urine Mucus Influenza A (RT-PCR) Influenza B (RT-PCR) RSV (RT-PCR) SARS-CoV-2 RNA (RT-PCR) Patient hx anesthesia problems: none Family hx anesthesia problems: none Results Review: All pre-operative results and documents have been reviewed as part of the pre-operative evaluation. FORMERLY [facility] Past Medical History Medical History Myocardial infarction COPD (chronic obstructive pulmonary disease) Cataracts, bilateral Tobacco dependence Mild aortic stenosis Hyperlipidemia Hypertension Insulin dependent type 2 diabetes mellitus Coronary artery disease Surgical History Surgical History S/P coronary artery stent placement H/O cataract removal with insertion of prosthetic lens History of cataract extraction History of coronary artery stent placement mid LAD Family History Family History Father Cerebrovascular accident Other Diabetes mellitus Social History Social History Social History: Surrogate medical decision maker: Janie Lange, spouse ([phone]). Code status: Full code. Smoking packs per day: 1 Smoking cigarettes per day: 20.0 Years smoked: 48 Smoking pack-years: 48.00 Smoking status: Current every day smoker Tobacco type: cigarettes Second hand tobacco smoke exposure: No Alcohol intake: never Alcohol use details: social alcohol use in moderation Substance use: current Substance use type: does not use Do You Feel Safe in your Home?: Yes Lack of Transportation: No Lack of Food: Never True Current Housing: I Have Housing Concerned About Future Housing: No Difficulty Paying Gas/Electric Bills: No Difficulty Paying for Meds: No Currently Unemployed: No Education: High School Diploma/GED Difficulty w/ Childcare or Family Care: No Living arrangements: with family Spiritual care concerns: No Exam Day of Procedure 01/14/25 09:30 Patient weight: overweight Heart: irregular rhythm Airway: Mallampati scale class II and other (Poor dentition, patient states most teeth have been pulled, 4 teeth remaining on the bottom. ) Neurological: alert and oriented
[2025-01-14] MEDS: FUROSEMIDE 40 MG TABLET PO (09:40)
[2025-01-14] MEDS: gemfibroziL 600 MG TABLET PO (09:40)
[2025-01-14] MEDS: SPIRONOLACTONE 25 MG TABLET PO (09:41)
[2025-01-14] MEDS: CLOPIDOGREL BISULFATE 75 MG TABLET PO (09:41)
[2025-01-14] MEDS: METOPROLOL SUCCINATE EXT REL 100 MG TABCR 200 MG PO (09:41)
[2025-01-14] MEDS: METOPROLOL SUCCINATE EXT REL 25 MG TABCR PO (09:41)
[2025-01-14] MEDS: ATORVASTATIN 40 MG TABLET PO (09:41)
[2025-01-14] MEDS: EMPAGLIFLOZIN 10 MG TABLET PO (09:42)
--- NOTE | 2025-01-14 10:42 | PM.CNCAR ---
Assessment and Plan Assessment and plan (1) Atrial flutter with rapid ventricular response: Code(s): I48.92 - Unspecified atrial flutter Status: Acute Plan 1. Atrial flutter / atrial fibrillation with RVR. New diagnosis in December 2024 in setting of COVID. 2. Heart failure with reduced LVEF of 30-35% per TTE 12/31/2024. Diagnosed in December 2024 in setting of COVID, atrial fibrillation/atrial flutter with RVR 3. COVID infection in December 2024 4. Moderate-severe aortic stenosis per TTE 12/31/2024 5. Coronary artery disease s/p PCI 6. Hypertension 7. Hyperlipidemia 8. Diabetes mellitus PLAN: -Will plan for ZENA-guided DCCV later today if Anesthesia team available. Keep NPO for procedure. -Continue Eliquis 5mg BID without interruption. -On Metprolol 225mg once daily, likely will decrease down to 200mg once daily if cardioversion successful. -Continue Plavix, Atorvastatin. -As for HFrEF, continue Jardiance 10mg once daily, Entresto 24/26mg BID, Spironolactone 25mg QD, Toprol 225mg once daily, and PO Lasix 40mg once daily. History of Present Illness History of Present Illness Consult date/time: 01/14/25 10:42 Requesting physician: Kel Ashraf MD Consult reason: Other (Atrial flutter with RVR) Reason For Visit: A FLUTTER WITH RVR, HYPOTENSION Narrative: Ilan is a 64 year old male with the following history: 1. Atrial flutter / atrial fibrillation with RVR. New diagnosis in December 2024 in setting of COVID. 2. Heart failure with reduced LVEF of 30-35% per TTE 12/31/2024. Diagnosed in December 2024 in setting of COVID, atrial fibrillation/atrial flutter with RVR 3. COVID infection in December 2024 4. Moderate-severe aortic stenosis per TTE 12/31/2024 5. Coronary artery disease s/p PCI 6. Hypertension 7. Hyperlipidemia 8. Diabetes mellitus Ilan presented to [facility] with shortness of breath, dizziness. Noted to be in atrial flutter with RVR. After his recent hospitalization here, he followed up with Dr. Reich and is scheduled to undergo cardioversion later this month, however, given his symptoms he presented to [facility]. Workup shows EKG with atrial flutter with RVR. Troponins are negative. CXR without acute findings. Review of Systems Review of Systems: All systems reviewed & are unremarkable except as noted in HPI and below (HPI) FORMERLY [facility], [facility] Past Medical History Medical History Myocardial infarction COPD (chronic obstructive pulmonary disease) Cataracts, bilateral Tobacco dependence Mild aortic stenosis Hyperlipidemia Hypertension Insulin dependent type 2 diabetes mellitus Coronary artery disease Surgical History Surgical History S/P coronary artery stent placement H/O cataract removal with insertion of prosthetic lens History of cataract extraction History of coronary artery stent placement mid LAD Family History Family History Father Cerebrovascular accident Other Diabetes mellitus Social History Social History Social History: Surrogate medical decision maker: Janie Lange, spouse ([phone]). Code status: Full code. Smoking packs per day: 1 Smoking cigarettes per day: 20.0 Years smoked: 48 Smoking pack-years: 48.00 Smoking status: Current every day smoker Tobacco type: cigarettes Second hand tobacco smoke exposure: No Alcohol intake: never Alcohol use details: social alcohol use in moderation Substance use: current Substance use type: does not use Do You Feel Safe in your Home?: Yes Lack of Transportation: No Lack of Food: Never True Current Housing: I Have Housing Concerned About Future Housing: No Difficulty Paying Gas/Electric Bills: No Difficulty Paying for Meds: No Currently Unemployed: No Education: High School Diploma/GED Difficulty w/ Childcare or Family Care: No Living arrangements: with family Spiritual care concerns: No Meds Home Medications and Allergies Home Medications ?Medication ?Instructions ?Recorded ?Confirmed ?Type atorvastatin 40 mg tablet 40 mg PO DAILY 12/12/22 01/13/25 History clopidogrel 75 mg tablet 75 mg PO DAILY 12/12/22 01/13/25 History gemfibrozil 600 mg tablet 600 mg PO BID 12/12/22 01/13/25 History metformin 1,000 mg tablet 1,000 mg PO BID 12/12/22 01/13/25 History apixaban 5 mg tablet (Eliquis) 5 mg PO Q12HR 30 days #60 tabs 01/03/25 01/13/25 Rx empagliflozin 10 mg tablet 10 mg PO DAILY 30 days #30 tabs 01/03/25 01/13/25 Rx (Jardiance) furosemide 40 mg tablet 40 mg PO DAILY 30 days #30 tabs 01/03/25 01/13/25 Rx metoprolol succinate 100 mg 225 mg (2.25 x 100 mg) PO DAILY 30 01/03/25 01/13/25 Rx tablet,extended release 24 hr days #68 tabs metoprolol tartrate 75 mg tablet 75 mg PO ONCE #2 tabs 01/03/25 01/13/25 Rx sacubitril 24 mg-valsartan 26 mg 1 tab PO Q12HR 30 days #60 tabs 01/03/25 01/13/25 Rx tablet (Entresto) spironolactone 25 mg tablet 25 mg PO QAM 30 days #30 tabs 01/03/25 01/13/25 Rx Allergies Allergy/AdvReac Type Severity Reaction Status Date / Time No Known Allergies Allergy Verified 12/30/24 11:25 Vital Signs Vital Signs - 24 hr 01/13/25 10:59 01/13/25 13:55 01/13/25 14:00 Temperature 36.4 C Pulse Rate 124 H 134 H Respiratory Rate 18 15 Blood Pressure 98/63 L 81/62 L Pulse Oximetry 97 95 95 Oxygen Delivery Room Air Room Air Oxygen Flow Rate 01/13/25 14:34 01/13/25 14:53 01/13/25 14:56 Temperature Pulse Rate 115 H 120 H 115 H Respiratory Rate 15 20 23 H Blood Pressure 86/70 L 92/75 L Pulse Oximetry 95 92 94 Oxygen Delivery Oxygen Flow Rate 01/13/25 15:00 01/13/25 15:01 01/13/25 15:16 Temperature Pulse Rate 111 H 109 H 110 H Respiratory Rate 15 15 19 Blood Pressure 91/67 L Pulse Oximetry 97 97 Oxygen Delivery Oxygen Flow Rate 01/13/25 15:17 01/13/25 15:21 01/13/25 15:25 Temperature Pulse Rate 111 H 107 H 114 H Respiratory Rate 20 23 H 19 Blood Pressure 106/79 98/77 L 100/80 Pulse Oximetry 98 Oxygen Delivery Oxygen Flow Rate 01/13/25 15:56 01/13/25 16:00 01/13/25 16:01 Temperature Pulse Rate 120 H 112 H 112 H Respiratory Rate 10 L 19 15 Blood Pressure 112/79 Pulse Oximetry 93 96 95 Oxygen Delivery Oxygen Flow Rate 01/13/25 16:06 01/13/25 16:10 01/13/25 16:15 Temperature Pulse Rate 117 H 116 H 115 H Respiratory Rate 12 15 16 Blood Pressure 108/75 99/81 L 103/77 Pulse Oximetry 96 Oxygen Delivery Oxygen Flow Rate 01/13/25 16:16 01/13/25 16:20 01/13/25 16:30 Temperature Pulse Rate 115 H 115 H 116 H Respiratory Rate 20 16 15 Blood Pressure 103/76 Pulse Oximetry 94 Oxygen Delivery Oxygen Flow Rate 01/13/25 16:31 01/13/25 16:35 01/13/25 16:36 Temperature Pulse Rate 120 H 116 H 120 H Respiratory Rate 11 L 18 21 H Blood Pressure 99/81 L 116/92 H Pulse Oximetry 95 96 97 Oxygen Delivery Oxygen Flow Rate 01/13/25 17:49 01/13/25 17:50 01/13/25 17:55 Temperature Pulse Rate 126 H 126 H 132 H Respiratory Rate 19 17 21 H Blood Pressure 106/75 108/79 Pulse Oximetry 92 94 92 Oxygen Delivery Oxygen Flow Rate 01/13/25 17:56 01/13/25 18:00 01/13/25 18:01 Temperature Pulse Rate 132 H 131 H 132 H Respiratory Rate 20 19 14 Blood Pressure 107/87 Pulse Oximetry 91 93 93 Oxygen Delivery Oxygen Flow Rate 01/13/25 18:05 01/13/25 18:24 01/13/25 18:30 Temperature Pulse Rate 132 H 117 H 118 H Respiratory Rate 14 19 13 Blood Pressure 102/78 Pulse Oximetry 92 94 95 Oxygen Delivery Oxygen Flow Rate 01/13/25 18:40 01/13/25 19:25 01/13/25 19:30 Temperature Pulse Rate 122 H 132 H 132 H Respiratory Rate 12 24 H 28 H Blood Pressure 117/78 Pulse Oximetry 94 93 95 Oxygen Delivery Oxygen Flow Rate 01/13/25 19:54 01/13/25 20:00 01/13/25 20:01 Temperature Pulse Rate 132 H 123 H 122 H Respiratory Rate 19 18 17 Blood Pressure Pulse Oximetry 92 93 94 Oxygen Delivery Oxygen Flow Rate 01/13/25 21:38 01/13/25 23:03 01/13/25 23:53 Temperature 36.4 C Pulse Rate 118 H 122 H Respiratory Rate 20 Blood Pressure 112/81 Pulse Oximetry 94 96 Oxygen Delivery Room Air Oxygen Flow Rate 01/14/25 01:35 01/14/25 03:19 01/14/25 04:49 Temperature 36.6 C 36.7 C Pulse Rate 114 H 112 H Respiratory Rate 20 16 Blood Pressure 115/85 103/82 Pulse Oximetry 93 93 95 Oxygen Delivery Nasal Cannula Oxygen Flow Rate 2 01/14/25 05:07 01/14/25 06:54 01/14/25 08:13 Temperature 36.6 C Pulse Rate 120 H 119 H 134 H Respiratory Rate 17 16 20 Blood Pressure 100/80 104/86 106/78 Pulse Oximetry 95 97 97 Oxygen Delivery Oxygen Flow Rate 01/14/25 08:22 01/14/25 09:41 01/14/25 09:41 Temperature Pulse Rate 136 H 136 H Respiratory Rate Blood Pressure Pulse Oximetry 94 Oxygen Delivery Room Air Oxygen Flow Rate 01/14/25 09:47 Temperature Pulse Rate 137 H Respiratory Rate 12 Blood Pressure 109/86 Pulse Oximetry 94 Oxygen Delivery Oxygen Flow Rate Exam Const: General: comfortable and no acute distress HENMT: Mouth: Yes moist mucous membranes Eyes: General: appearance normal, both eyes and all related structures Sclera: sclerae normal Resp: Effort & Inspection: normal respiratory effort Cardio: Rate: tachycardic Rhythm: regular rhythm Skin: General skin exam: normal color Neuro: Speech: normal speech Psych: Mental Status: mental status grossly normal Affect: normal affect Results Labs and Meds 01/14/25 05:05 01/14/25 05:05 Lab results: Cardiac Enzymes 01/13/25 01/13/25 01/13/25 Range/Units 13:31 16:26 19:32 AST 20 (17-59) U/L Troponin I 0.025 0.016 D 0.016 (0.000-0.034) ng/mL 01/14/25 Range/Units 05:05 AST 23 (17-59) U/L Troponin I (0.000-0.034) ng/mL Coagulation 01/13/25 Range/Units 13:31 PT 14.1 (11.1-14.7) Seconds APTT 29.2 (22.3-36.8) Seconds CBC 01/13/25 01/14/25 Range/Units 13:31 05:05 WBC 10.2 H 8.2 (4.5-10.0) K/mm3 RBC 5.82 5.34 (4.6-6.20) M/mm3 Hgb 16.8 15.3 (14.0-18.0) g/dL Hct 52.4 H 48.2 (42.0-52.0) % Plt Count 352 297 (150-375) k/mm3 Lymph # (Auto) 1.31 1.41 (0.9-3.2) K/mm3 [facility] # (Auto) 0.8 H 0.8 H (0.1-0.6) K/mm3 Eos # (Auto) 0.1 0.1 (0-0.3) K/mm3 Baso # (Auto) 0.0 0.0 (0.0-0.1) K/mm3 Comprehensive Metabolic Panel 01/13/25 01/14/25 Range/Units 13:31 05:05 Sodium 142 143 (137-145) mmol/L Potassium 4.6 3.7 (3.4-5.0) mmol/L Chloride 107 114 H (98-107) mmol/L Carbon Dioxide 24 21 L (22-30) mmol/L BUN 29 H D 24 H (9-20) mg/dL Creatinine 0.94 0.63 L (0.7-1.3) mg/dL Glucose 173 H 76 (65-110) mg/dL Calcium 9.5 8.8 (8.4-10.2) mg/dL AST 20 23 (17-59) U/L ALT 21 20 (6-50) U/L Alkaline Phosphatase 82 71 (38-126) U/L Total Protein 7.0 6.0 L (6.3-8.2) g/dL Albumin 4.1 3.3 L (3.5-5.1) g/dL Intake and Output 01/13/25 01/14/25 01/14/25 23:59 07:59 15:59 Intake Total 1000 0 Output Total 1500 Balance 1000 -1500 Intake: IV 1000 Sodium Chloride 0.9% IV 1,000 1000 ml @ 150 mls/hr IV CONT .[id number] STA Rx#:[id number] Oral 0 Output: Urine 1500
[2025-01-14 12:29] LABS: Glucose Point of Care 74 mg/dl (65-105)
--- NOTE | 2025-01-14 14:00 | P.PNAN_ITS ---
Anes - Eval Final PreProcedure Day of Procedure 01/14/25 14:00 Patient weight: obese Heart: irregular rhythm Lungs: clear to auscultation Airway: Mallampati scale class II Last oral intake: >/= 8 hours ASA classification: IV Emergent: no Anesthetic plan: proceed Anesthesia type and monitoring: general GIVS and standard monitoring Results Review: All pre-operative results and documents have been reviewed as part of the pre- operative evaluation. Informed Consent: The patient's anesthetic plan and its attendant risks and benefits were discussed with the patient/family/POA. Questions were solicited and answers provided to the satisfaction of the patient/family/POA.
--- NOTE | 2025-01-14 14:00 | ECG_ITS ---
Test Date: 2025-01-14 14:28:28 Measurements Intervals [place] Rate: 60 P: 75 MT: 142 QRS: 46 QRSD: 89 T: 97 QT: 404 QTc: 406 Interpretive Statements SINUS RHYTHM NONSPECIFIC ST & T-WAVE ABNORMALITY Compared to ECG 01/14/2025 13:58:52 T-wave abnormality now present Atrial flutter no longer present Myocardial infarct finding no longer present Ventricular premature complex(es) no longer present Electronically Signed On 01-15-2025 11:12:10 VERIFICATION SPECIALIST by Andry Keita M.D.
--- NOTE | 2025-01-14 14:30 | ECG_ITS ---
Test Date: 2025-01-14 13:58:52 Measurements Intervals [place] Rate: 111 P: 0 ID: 0 QRS: 51 QRSD: 94 T: 120 QT: 338 QTc: 460 Interpretive Statements ATRIAL FLUTTER/TACHYCARDIA WITH RAPID VENTRICULAR RESPONSE ANTEROSEPTAL MYOCARDIAL INFARCTION , OF INDETERMINATE AGE [40+ ms Q WAVE IN V1-V4] VENTRICULAR PREMATURE COMPLEX Compared to ECG 01/13/2025 13:25:01 No significant changes Electronically Signed On 01-15-2025 11:10:47 HAUNTED HISTORY TOUR GUIDE by Andry Keita M.D.
--- NOTE | 2025-01-14 14:34 | P.PCNTEECA_ITS ---
ZENA with Cardioversion Date of procedure: 01/14/25 Procedure Type: Date Of Procedure: 01/14/2025 Brief History Of Present Illness: Patient is a 64 year old male who is referred for ZENA-guided DCCV for atrial flutter with RVR. Procedure In Detail: After verbal and written informed consent was obtained, the patient risks, benefits, and alternatives explained in detail. The patient agreed to proceed with the plan of care as outlined above.?The patient was then placed in the appropriate 30 to 45 degree angle supine position at a slight left lateral decubitus position.?Patient was monitored throughout the study with telemetry, oxygen saturation, end-tidal CO2 monitoring, blood pressure, heart rate, and respirations.?The posterior hypopharynx was then locally anesthetized using repeated administration of Hurricaine spray as well as gargled viscous lidocaine. After local anesthetic of the posterior hypopharynx was achieved and the oral bite block placed, sedation was administered by the Anesthesia team.?After confirmation of adequate sedation, the transesophageal echocardiogram probe was advanced through the oral bite block into the posterior hypopharynx and into the esophagus easily and without complication.?Multiple, multiplanar echocardiographic images were obtained in multiple standard re- projections.??At the conclusion of the study, the transesophageal echocardiogram probe was removed easily and without complication. The patient tolerated the procedure well without difficulty.? Moderate Sedation / Anesthesia Administration: Sedation administered by the Anesthesia team. FINDINGS: Smoke noted in the left atrium and left atrial appendage. No visible thrombus. Definity was administered to definitively rule out thrombus, which again confirmed no thrombus. The aortic valve is severely sclerotic. The aortic valve appears to be a functionally bicuspid valve with fusion of the noncoronary cusp and left coronary cusp. Aortic valve area by planimetry is 0.6 cm2. The is mild atherosclerotic disease in aorta. CARDIOVERSION: Defibrillator pads placed in an AP position. Synchronized electrical cardioversion was performed with 1 shock at 250 joules, which successfully restored sinus rhythm. CONCLUSIONS: -Successful cardioversion to sinus rhythm with 1 shock at 250 joules. -Functionally bicuspid aortic valve with fusion of the noncoronary cusp and left coronary cusp, with severe aortic stenosis with OSEI of 0.6cm2 by planimetry. Complications: None
--- NOTE | 2025-01-14 14:34 | WPDHPUPDATE1 ---
History and Physical Update Update Date/Time: 01/14/25 14:34 History and Physical has been reviewed, including an updated exam of the patient. There are NO changes in the patient's condition. Risks, benefits, and alternatives have been discussed and questions answered. Patient agrees to proceed with procedure.
--- NOTE | 2025-01-14 15:20 | P.PNIM_ITS ---
Progress Note: A&P Assessment and Plan (1) Atrial flutter with rapid ventricular response: Code(s): I48.92 - Unspecified atrial flutter Status: Acute Assessment and Plan: * EKG showing atrial flutter /tachycardia with rapid ventricular response, rate of 135, QTC 452 For ZENA with cardioversion today Continue Eliquis, Metoprolol per cardiology continue monitoring cardiology consulted (2) Acute heart failure with reduced ejection fraction (HFrEF, <= 40%): Code(s): I50.21 - Acute systolic (congestive) heart failure Status: Acute Assessment and Plan: * last echo reviewed from 12/31/2024 showed LV systolic function with moderately reduced EF of 30-35%, right ventricular systolic function reduced, moderately enlarged left atrial and right atrial chamber, severe aortic valve calcification with moderate to severe aortic valve stenosis, severely calci fied mitral valve * continue Jardiance, Lasix, metoprolol, Entresto, spironolactone * continue cardiac monitoring (3) HTN (hypertension): Code(s): I10 - Essential (primary) hypertension Status: Acute Assessment and Plan: * blood pressure ranging 102/78 to 117/78 * continue Entresto and spironolactone (4) Hyperlipidemia: Code(s): E78.5 - Hyperlipidemia, unspecified Status: Acute Assessment and Plan: * continue atorvastatin (5) Diabetes mellitus: Code(s): E11.9 - Type 2 diabetes mellitus without complications Status: Acute Assessment and Plan: * Blood sugars ranging 173-256 * Hgb A1C 8.5 on 12/30/2024 * Accu checks AC/HS * high-dose SSI ordered * hypoglycemic protocol in place * currently on heart healthy however will be NPO after midnight and then will need diabetic diet post cardioversion * Hold metformin (6) Tobacco dependence: Code(s): F17.200 - Nicotine dependence, unspecified, uncomplicated Status: Acute Assessment and Plan: * nicotine patch ordered Plan DVT prophylaxis on Eliquis Subjective Date/time seen: 01/14/25 15:20 Interval history: Comfortable at bedside awaiting ZENA with cardioversion by cardiology Review of Systems Review of Systems: All systems reviewed & are unremarkable except as noted in HPI and below Exam Narrative: General: In no acute distress, well nourished Head: atraumatic, no encephalopathy Eyes:, PERRLA, sclera clear ENT: moist mucous membranes, nasal passages clear Neck: supple, no JVD, no adenopathy, trachea midline Cardiac: Normal S1 and S2. AFib/a flutter with a rate of 120 on monitor, murmur noted, no gallops or friction rubs, peripheral pulses intact. Respiratory: Lungs clear to auscultation, no adventitious lung sounds, currently on room air Gastrointestinal: soft, non-distended, non-tender, normoactive bowel sounds. : voiding without difficulty. Extremities: moves all extremities well, mild lower extremity edema Skin: clean, dry, intact. No wounds or lesions. Neuro: Alert and oriented x4, cranial nerves intact, no neuro deficits. Psych: normal mood, normal affect, interactive Objective Data Vital Signs Vital Signs: Vital Signs - 24 hr 01/13/25 15:21 01/13/25 15:25 01/13/25 15:56 Temperature Pulse Rate 107 H 114 H 120 H Respiratory Rate 23 H 19 10 L Blood Pressure 98/77 L 100/80 Pulse Oximetry 98 93 Oxygen Delivery Oxygen Flow Rate 01/13/25 16:00 01/13/25 16:01 01/13/25 16:06 Temperature Pulse Rate 112 H 112 H 117 H Respiratory Rate 19 15 12 Blood Pressure 112/79 108/75 Pulse Oximetry 96 95 96 Oxygen Delivery Oxygen Flow Rate 01/13/25 16:10 01/13/25 16:15 01/13/25 16:16 Temperature Pulse Rate 116 H 115 H 115 H Respiratory Rate 15 16 20 Blood Pressure 99/81 L 103/77 Pulse Oximetry 94 Oxygen Delivery Oxygen Flow Rate 01/13/25 16:20 01/13/25 16:30 01/13/25 16:31 Temperature Pulse Rate 115 H 116 H 120 H Respiratory Rate 16 15 11 L Blood Pressure 103/76 99/81 L Pulse Oximetry 95 Oxygen Delivery Oxygen Flow Rate 01/13/25 16:35 01/13/25 16:36 01/13/25 17:49 Temperature Pulse Rate 116 H 120 H 126 H Respiratory Rate 18 21 H 19 Blood Pressure 116/92 H Pulse Oximetry 96 97 92 Oxygen Delivery Oxygen Flow Rate 01/13/25 17:50 01/13/25 17:55 01/13/25 17:56 Temperature Pulse Rate 126 H 132 H 132 H Respiratory Rate 17 21 H 20 Blood Pressure 106/75 108/79 Pulse Oximetry 94 92 91 Oxygen Delivery Oxygen Flow Rate 01/13/25 18:00 01/13/25 18:01 01/13/25 18:05 Temperature Pulse Rate 131 H 132 H 132 H Respiratory Rate 19 14 14 Blood Pressure 107/87 102/78 Pulse Oximetry 93 93 92 Oxygen Delivery Oxygen Flow Rate 01/13/25 18:24 01/13/25 18:30 01/13/25 18:40 Temperature Pulse Rate 117 H 118 H 122 H Respiratory Rate 19 13 12 Blood Pressure 117/78 Pulse Oximetry 94 95 94 Oxygen Delivery Oxygen Flow Rate 01/13/25 19:25 01/13/25 19:30 01/13/25 19:54 Temperature Pulse Rate 132 H 132 H 132 H Respiratory Rate 24 H 28 H 19 Blood Pressure Pulse Oximetry 93 95 92 Oxygen Delivery Oxygen Flow Rate 01/13/25 20:00 01/13/25 20:01 01/13/25 21:38 Temperature Pulse Rate 123 H 122 H 118 H Respiratory Rate 18 17 Blood Pressure Pulse Oximetry 93 94 Oxygen Delivery Oxygen Flow Rate 01/13/25 23:03 01/13/25 23:53 01/14/25 01:35 Temperature 97.6 F 97.8 F Pulse Rate 122 H 114 H Respiratory Rate 20 20 Blood Pressure 112/81 115/85 Pulse Oximetry 94 96 93 Oxygen Delivery Room Air Oxygen Flow Rate 01/14/25 03:19 01/14/25 04:49 01/14/25 05:07 Temperature 98.1 F 97.8 F Pulse Rate 112 H 120 H Respiratory Rate 16 17 Blood Pressure 103/82 100/80 Pulse Oximetry 93 95 95 Oxygen Delivery Nasal Cannula Oxygen Flow Rate 2 01/14/25 06:54 01/14/25 08:13 01/14/25 08:22 Temperature Pulse Rate 119 H 134 H Respiratory Rate 16 20 Blood Pressure 104/86 106/78 Pulse Oximetry 97 97 94 Oxygen Delivery Room Air Oxygen Flow Rate 01/14/25 09:41 01/14/25 09:41 01/14/25 09:47 Temperature Pulse Rate 136 H 136 H 137 H Respiratory Rate 12 Blood Pressure 109/86 Pulse Oximetry 94 Oxygen Delivery Oxygen Flow Rate 01/14/25 11:21 01/14/25 12:00 01/14/25 13:00 Temperature Pulse Rate 105 H 85 80 Respiratory Rate 17 15 19 Blood Pressure 90/67 L 168/75 H 158/77 H Pulse Oximetry 98 90 93 Oxygen Delivery Oxygen Flow Rate 01/14/25 14:44 01/14/25 14:45 01/14/25 15:00 Temperature Pulse Rate 75 79 73 Respiratory Rate 18 18 12 Blood Pressure 98/72 L 82/71 L 83/71 L Pulse Oximetry 99 97 97 Oxygen Delivery Nasal Cannula Nasal Cannula Nasal Cannula Oxygen Flow Rate 2 2 2 01/14/25 15:10 Temperature Pulse Rate 80 Respiratory Rate 13 Blood Pressure 96/78 L Pulse Oximetry 97 Oxygen Delivery Nasal Cannula Oxygen Flow Rate 2 Intake/Output Intake/Output: Intake & Output 01/11/25 01/12/25 01/13/25 01/14/25 23:59 23:59 23:59 23:59 Intake Total 3000 0 Output Total 1500 Balance 3000 -1500 Meds/Results Medications: Active Medications Generic Name Dose Route Start Last Admin Trade Name Freq PRN Reason Stop Dose Admin Acetaminophen 650 mg 01/13/25 16:39 Acetaminophen 325 Mg Tablet PO Q4H PRN Mild Pain (1-3) or Fever Apixaban 5 mg 01/13/25 23:55 01/14/25 09:41 Apixaban 5 Mg Tablet PO 5 mg Q12HR MIRNA Administration Atorvastatin Calcium 40 mg 01/14/25 09:00 01/14/25 09:41 Atorvastatin 40 Mg Tablet PO 40 mg DAILY MIRNA Administration Clopidogrel Bisulfate 75 mg 01/14/25 09:00 01/14/25 09:41 Clopidogrel Bisulfate 75 Mg Tablet PO 75 mg DAILY MIRNA Administration Dextrose 12.5 gm 01/13/25 23:40 Dextrose 50% 25 Gm/50 Ml Syringe IV PUSH PRN PRN Hypoglycemia Protocol Empagliflozin 10 mg 01/14/25 09:00 01/14/25 09:42 Empagliflozin 10 Mg Tablet PO 10 mg DAILY MIRNA Administration Furosemide 40 mg 01/14/25 09:00 01/14/25 09:40 Furosemide 40 Mg Tablet PO 40 mg DAILY MIRNA Administration Gemfibrozil 600 mg 01/14/25 07:30 Gemfibrozil 600 Mg Tablet PO 0730,1630 MIRNA Glucagon 1 mg 01/13/25 23:40 Glucagon For Inj 1 Mg Vial IM PRN PRN Hypoglycemia Protocol Glucose 15 gm 01/13/25 23:40 Glucose Oral Gel 15 Gm Of Glucse In 37.5 Gm Tube PO PRN PRN Hypoglycemia Protocol Dextrose 1,000 mls @ 100 mls/hr 01/13/25 23:40 Dextrose 5% 1,000 Ml IVPB PRN PRN Hypoglycemia Protocol Insulin Aspart 4 - 8 units 01/14/25 08:00 01/14/25 12:29 Insulin Aspart (*Bkc) 100 Units/Ml SUB-Q Not Given TIDWM [facility] Protocol Insulin Aspart 2 - 4 units 01/14/25 21:00 Insulin Aspart (*Bkc) 100 Units/Ml SUB-Q HS [facility] Protocol Metoprolol Succinate 200 mg 01/14/25 09:00 01/14/25 09:41 Metoprolol Succinate Ext Rel 100 Mg Tabcr PO 200 mg QAM MIRNA Administration Nicotine 1 patch 01/14/25 09:00 01/14/25 09:42 Nicotine (*Pbkc) 21 Mg Patch TRANSDERM Not Given DAILY MIRNA Ondansetron HCl 4 mg 01/13/25 23:43 Ondansetron Inj 4 Mg/2 Ml Vial IV PUSH Q6H PRN Nausea And Vomiting Sacubitril/Valsartan 1 tab 01/13/25 23:55 01/14/25 09:41 Sacubitril/Valsartan 24-26 Mg Tablet PO 1 tab Q12HR MIRNA Administration Spironolactone 25 mg 01/14/25 09:00 01/14/25 09:41 Spironolactone 25 Mg Tablet PO 25 mg QAM [place] Administration Radiology Results: ITS Impressions Chest X-Ray 01/13/25 15:14 IMPRESSION: No acute cardiopulmonary pathology. Labs Labs: Laboratory Results - last 24 hr 01/13/25 01/13/25 01/13/25 14:55 16:26 19:32 WBC RBC Hgb Hct MCV MCH MCHC RDW Plt Count MPV Immature Gran % (Auto) Neut % (Auto) Lymph % (Auto) [place] % (Auto) Eos % (Auto) Baso % (Auto) Lymph # (Auto) [place] # (Auto) Eos # (Auto) Baso # (Auto) Abs Immat Gran (auto) Absolute Neuts (auto) Absolute Nucleated RBC Nucleated RBC % Sodium Potassium Chloride Carbon Dioxide Anion Gap BUN Creatinine Estim Creat Clear Calc Estimated GFR Glucose POC Capillary Glucose Calcium Magnesium Total Bilirubin AST ALT Alkaline Phosphatase Troponin I 0.016 D 0.016 Total Protein Albumin Urine Color Yellow Urine Appearance Clear Urine pH 6.0 Ur Specific [place] 1.036 H Urine Protein Trace Urine Glucose (UA) 3+ H Urine Ketones Trace H Ur Blood (Man) Negative Urine Nitrate Negative Urine Bilirubin Negative Urine Urobilinogen 0.2 Add Ur Microanalysis Reviewed Leukocyte Esterase Rfl Negative Urine RBC 3-5 H Urine WBC 0-5 Ur Squamous Epith Cells None seen Urine Bacteria None seen Urine Casts 6-10 Hyaline Casts 3-4 H Urine Mucus Present Influenza A (RT-PCR) Negative Influenza B (RT-PCR) Negative RSV (RT-PCR) Negative SARS-CoV-2 RNA (RT-PCR) Negative 01/13/25 01/14/25 01/14/25 23:49 05:05 08:17 WBC 8.2 RBC 5.34 Hgb 15.3 Hct 48.2 MCV 90.3 MCH 28.7 MCHC 31.7 L RDW 14.7 H Plt Count 297 MPV 10.2 Immature Gran % (Auto) 0.2 Neut % (Auto) 71.5 Lymph % (Auto) 17.3 L [place] % (Auto) 9.3 H Eos % (Auto) 1.2 Baso % (Auto) 0.5 Lymph # (Auto) 1.41 [place] # (Auto) 0.8 H Eos # (Auto) 0.1 Baso # (Auto) 0.0 Abs Immat Gran (auto) 0.02 Absolute Neuts (auto) 5.8 Absolute Nucleated RBC 0.000 Nucleated RBC % 0.0 Sodium 143 Potassium 3.7 Chloride 114 H Carbon Dioxide 21 L Anion Gap 8 BUN 24 H Creatinine 0.63 L Estim Creat Clear Calc 129 Estimated GFR > 60 Glucose 76 POC Capillary Glucose 120 H 79 Calcium 8.8 Magnesium 2.0 Total Bilirubin 0.4 AST 23 ALT 20 Alkaline Phosphatase 71 Troponin I Total Protein 6.0 L Albumin 3.3 L Urine Color Urine Appearance Urine pH Ur Specific [place] Urine Protein Urine Glucose (UA) Urine Ketones Ur Blood (Man) Urine Nitrate Urine Bilirubin Urine Urobilinogen Add Ur Microanalysis Leukocyte Esterase Rfl Urine RBC Urine WBC Ur Squamous Epith Cells Urine Bacteria Urine Casts Hyaline Casts Urine Mucus Influenza A (RT-PCR) Influenza B (RT-PCR) RSV (RT-PCR) SARS-CoV-2 RNA (RT-PCR) 01/14/25 12:27 WBC RBC Hgb Hct MCV MCH MCHC RDW Plt Count MPV Immature Gran % (Auto) Neut % (Auto) Lymph % (Auto) [place] % (Auto) Eos % (Auto) Baso % (Auto) Lymph # (Auto) [place] # (Auto) Eos # (Auto) Baso # (Auto) Abs Immat Gran (auto) Absolute Neuts (auto) Absolute Nucleated RBC Nucleated RBC % Sodium Potassium Chloride Carbon Dioxide Anion Gap BUN Creatinine Estim Creat Clear Calc Estimated GFR Glucose POC Capillary Glucose 74 Calcium Magnesium Total Bilirubin AST ALT Alkaline Phosphatase Troponin I Total Protein Albumin Urine Color Urine Appearance Urine pH Ur Specific [place] Urine Protein Urine Glucose (UA) Urine Ketones Ur Blood (Man) Urine Nitrate Urine Bilirubin Urine Urobilinogen Add Ur Microanalysis Leukocyte Esterase Rfl Urine RBC Urine WBC Ur Squamous Epith Cells Urine Bacteria Urine Casts Hyaline Casts Urine Mucus Influenza A (RT-PCR) Influenza B (RT-PCR) RSV (RT-PCR) SARS-CoV-2 RNA (RT-PCR) Quality VTE Prophylaxis VTE prophylaxis: pharmacologic ordered
--- NOTE | 2025-01-14 17:39 | PC.NURSE ---
Patient arrived from [facility]. Telemetry applied. Heart rate 90 sr. Patient declined nicotine patch. A and O x4
[2025-01-14 20:19] LABS: Glucose Point of Care 124 mg/dl (65-105)
[2025-01-15] VITALS (12 sets, daily range): BP systolic 109–127; BP diastolic 71–80; PULSE 66–91; RESP 14–18; TEMP 36.3–36.7; O2SAT 94–98
[2025-01-15 04:58] LABS: Basophils Absolute Auto 0.1 K/mm3 (0.0-0.1); Basophils Percent Auto 0.5 % (0.2-1.2); Eosinophils Absolute Auto 0.1 K/mm3 (0-0.3); Eosinophils Percent Auto 1.1 % (0-4.4); Hematocrit 50.3 % (42.0-52.0); Hemoglobin 15.7 g/dL (14.0-18.0); Immature Granulocyte Absolute 0.04 K/mm3 (0.00-0.031); Immature Granulocyte Percent A 0.4 % (0-0.5); Lymphocytes Percent Auto 15.8 % (18.3-44.2); Mean Corpuscular HGB Conc 31.2 g/dl (32-36); Mean Corpuscular Hemoglobin 28.9 pg (26-34); Mean Corpuscular Volume 92.6 fl (80-100); Mean Platelet Volume 10.6 fl (7.4-10.4); Monocytes Absolute Auto 0.9 K/mm3 (0.1-0.6); Monocytes Percent Auto 8.9 % (2.6-8.5); Neutrophils Absolute Auto 7.4 K/mm3 (1.3-6.7); Neutrophils Percent Auto 73.3 % (45.5-73.1); Platelet Count Result 324 k/mm3 (150-375); Red Blood Count 5.43 M/mm3 (4.6-6.20); Red Cell Distribution Width 14.9 % (11.5-14.5); White Blood Count 10.1 K/mm3 (4.5-10.0)
[2025-01-15 05:20] LABS: Alanine Aminotransferase 24 U/L (6-50); Albumin Level 3.9 g/dL (3.5-5.1); Alkaline Phosphatase 74 U/L (38-126); Anion Gap 11 mmol/L (4-12); Aspartate Amino Transferase 26 U/L (17-59); Bilirubin,Total 0.6 mg/dL (0.2-1.3); Blood Urea Nitrogen 25 mg/dL (9-20); Calcium 9.5 mg/dL (8.4-10.2); Carbon Dioxide 25 mmol/L (22-30); Chloride 105 mmol/L (98-107); Estimated CRCL calculation 95 ml/min; Estimated Glomerular Filt Rate > 60; Glucose 53 mg/dL (65-110); Potassium 4.3 mmol/L (3.4-5.0); Sodium 141 mmol/L (137-145)
[2025-01-15 06:09] LABS: Glucose Point of Care 153 mg/dl (65-105)
[2025-01-15 07:46] LABS: Glucose Point of Care 112 mg/dl (65-105)
[2025-01-15] MEDS: METOPROLOL SUCCINATE EXT REL 100 MG TABCR 200 MG PO (09:12)
[2025-01-15] MEDS: gemfibroziL 600 MG TABLET PO (09:12)
[2025-01-15] MEDS: FUROSEMIDE 40 MG TABLET PO (09:13)
[2025-01-15] MEDS: SACUBITRIL/VALSARTAN 24-26 MG TABLET 1 TAB PO (09:13)
[2025-01-15] MEDS: ATORVASTATIN 40 MG TABLET PO (09:13)
[2025-01-15] MEDS: APIXABAN 5 MG TABLET PO (09:13)
[2025-01-15] MEDS: SPIRONOLACTONE 25 MG TABLET PO (09:13)
[2025-01-15] MEDS: CLOPIDOGREL BISULFATE 75 MG TABLET PO (09:13)
[2025-01-15] MEDS: EMPAGLIFLOZIN 10 MG TABLET PO (09:13)
--- NOTE | 2025-01-15 09:25 | PM.PNCARD ---
Progress Note: A&P Assessment and Plan (1) Atrial flutter with rapid ventricular response: Code(s): I48.92 - Unspecified atrial flutter Status: Acute Plan 1. Atrial flutter / atrial fibrillation with RVR. New diagnosis in December 2024 in setting of COVID. 2. Heart failure with reduced LVEF of 30-35% per TTE 12/31/2024. Diagnosed in December 2024 in setting of COVID, atrial fibrillation/atrial flutter with RVR 3. COVID infection in December 2024 4. Moderate-severe aortic stenosis per TTE 12/31/2024 5. Coronary artery disease s/p PCI 6. Hypertension 7. Hyperlipidemia 8. Diabetes mellitus PLAN: -S/p successful ZENA-guided DCCV on 01/14. Remains in sinus rhythm. -Continue Eliquis 5mg BID without interruption. -On Metoprolol 225mg once daily, decrease down to 200mg once daily. -Continue Plavix, Atorvastatin. -As for HFrEF, continue Jardiance 10mg once daily, Entresto 24/26mg BID, Spironolactone 25mg QD, Toprol 200mg once daily, and PO Lasix 40mg once daily. -Recommend outpatient sleep study to evaluate for SHANIKA ZENA also shows functionally bicuspid aortic valve with fusion of the noncoronary cusp and left coronary cusp, with severe aortic stenosis with OSEI of 0.6cm2 by planimetry. Discussed findings of severe with primary data systems manager, Dr. Reich. Recommend outpatient CT Surgery consultation for consideration of surgical aortic valve replacement. Dr. Reich agrees with this recommendation as well. Will have our office arrange referral to [facility] Surgery at [facility]. Given severe , avoid hypotension in this patient. Okay to discharge home today from a cardiac standpoint. Will arrange follow up in the office with Dr. Reich. Recommendations and plan discussed with Hospitalist. Subjective Date/time seen: 01/15/25 09:25 Interval history: Reason for visit: Atrial flutter with RVR HPI: Ilan is a 64 year old male with the following history: 1. Atrial flutter / atrial fibrillation with RVR. New diagnosis in December 2024 in setting of COVID. 2. Heart failure with reduced LVEF of 30-35% per TTE 12/31/2024. Diagnosed in December 2024 in setting of COVID, atrial fibrillation/atrial flutter with RVR 3. COVID infection in December 2024 4. Moderate-severe aortic stenosis per TTE 12/31/2024 5. Coronary artery disease s/p PCI 6. Hypertension 7. Hyperlipidemia 8. Diabetes mellitus Ilan presented to [place] with shortness of breath, dizziness. Noted to be in atrial flutter with RVR. After his recent hospitalization here, he followed up with Dr. Reich and is scheduled to undergo cardioversion later this month, however, given his symptoms he presented to [place]. Workup shows EKG with atrial flutter with RVR. Troponins are negative. CXR without acute findings. Date of service 01/15: Remains in sinus rhythm. Feeling well otherwise. Review of Systems Review of Systems: All systems reviewed & are unremarkable except as noted in HPI and below (HPI) Exam Const: General: comfortable and no acute distress HENMT: Mouth: Yes moist mucous membranes Eyes: General: appearance normal, both eyes and all related structures Sclera: sclerae normal Resp: Effort & Inspection: normal respiratory effort Cardio: Rate: regular rate Rhythm: regular rhythm Skin: General skin exam: normal color Neuro: Speech: normal speech Psych: Mental Status: mental status grossly normal Affect: normal affect Objective Data Vital Signs Vital Signs: Vital Signs - 24 hr 01/14/25 09:41 01/14/25 09:41 01/14/25 09:47 Temperature Pulse Rate 136 H 136 H 137 H Respiratory Rate 12 Blood Pressure 109/86 Pulse Oximetry 94 Oxygen Delivery Oxygen Flow Rate 01/14/25 11:21 01/14/25 12:00 01/14/25 13:00 Temperature Pulse Rate 105 H 85 80 Respiratory Rate 17 15 19 Blood Pressure 90/67 L 168/75 H 158/77 H Pulse Oximetry 98 90 93 Oxygen Delivery Oxygen Flow Rate 01/14/25 14:44 01/14/25 14:45 01/14/25 15:00 Temperature Pulse Rate 75 79 73 Respiratory Rate 18 18 12 Blood Pressure 98/72 L 82/71 L 83/71 L Pulse Oximetry 99 97 97 Oxygen Delivery Nasal Cannula Nasal Cannula Nasal Cannula Oxygen Flow Rate 2 2 2 01/14/25 15:10 01/14/25 15:25 01/14/25 15:40 Temperature Pulse Rate 80 84 86 Respiratory Rate 13 14 20 Blood Pressure 96/78 L 95/74 L 97/80 L Pulse Oximetry 97 93 94 Oxygen Delivery Nasal Cannula Room Air Room Air Oxygen Flow Rate 2 01/14/25 15:55 01/14/25 16:00 01/14/25 17:15 Temperature 36.6 C Pulse Rate 83 84 89 Respiratory Rate 17 16 Blood Pressure 98/76 L 91/66 L Pulse Oximetry 93 97 Oxygen Delivery Room Air Oxygen Flow Rate 01/14/25 20:00 01/14/25 20:00 01/14/25 20:00 Temperature 36.6 C Pulse Rate 85 86 Respiratory Rate 18 Blood Pressure 101/62 Pulse Oximetry 94 Oxygen Delivery Room Air Oxygen Flow Rate 01/14/25 22:00 01/14/25 23:55 01/15/25 00:00 Temperature 36.8 C Pulse Rate 82 80 Respiratory Rate 18 Blood Pressure 101/68 Pulse Oximetry 95 Oxygen Delivery Room Air Oxygen Flow Rate 01/15/25 00:00 01/15/25 02:00 01/15/25 03:54 Temperature 36.7 C Pulse Rate 85 77 88 Respiratory Rate 18 Blood Pressure 109/74 Pulse Oximetry 94 Oxygen Delivery Oxygen Flow Rate 01/15/25 04:00 01/15/25 04:00 01/15/25 06:00 Temperature Pulse Rate 70 82 Respiratory Rate Blood Pressure Pulse Oximetry Oxygen Delivery Room Air Oxygen Flow Rate 01/15/25 07:40 01/15/25 09:12 Temperature 36.3 C L Pulse Rate 76 91 Respiratory Rate 14 Blood Pressure 127/80 Pulse Oximetry 98 Oxygen Delivery Oxygen Flow Rate Intake/Output Intake/Output: Intake & Output 01/12/25 01/13/25 01/14/25 01/15/25 23:59 23:59 23:59 23:59 Intake Total 3000 480 480 Output Total 1500 700 Balance 3000 -1020 -220 Meds/Results Medications: Active Medications Generic Name Dose Route Start Last Admin Trade Name Freq PRN Reason Stop Dose Admin Acetaminophen 650 mg 01/13/25 16:39 Acetaminophen 325 Mg Tablet PO Q4H PRN Mild Pain (1-3) or Fever Apixaban 5 mg 01/13/25 23:55 01/15/25 09:13 Apixaban 5 Mg Tablet PO 5 mg Q12HR MIRNA Administration Atorvastatin Calcium 40 mg 01/14/25 09:00 01/15/25 09:13 Atorvastatin 40 Mg Tablet PO 40 mg DAILY MIRNA Administration Clopidogrel Bisulfate 75 mg 01/14/25 09:00 01/15/25 09:13 Clopidogrel Bisulfate 75 Mg Tablet PO 75 mg DAILY MIRNA Administration Dextrose 12.5 gm 01/13/25 23:40 Dextrose 50% 25 Gm/50 Ml Syringe IV PUSH PRN PRN Hypoglycemia Protocol Empagliflozin 10 mg 01/14/25 09:00 01/15/25 09:13 Empagliflozin 10 Mg Tablet PO 10 mg DAILY MIRNA Administration Furosemide 40 mg 01/14/25 09:00 01/15/25 09:13 Furosemide 40 Mg Tablet PO 40 mg DAILY MIRNA Administration Gemfibrozil 600 mg 01/14/25 07:30 01/15/25 09:12 Gemfibrozil 600 Mg Tablet PO 600 mg 0730,1630 MIRNA Administration Glucagon 1 mg 01/13/25 23:40 Glucagon For Inj 1 Mg Vial IM PRN PRN Hypoglycemia Protocol Glucose 15 gm 01/13/25 23:40 Glucose Oral Gel 15 Gm Of Glucse In 37.5 Gm Tube PO PRN PRN Hypoglycemia Protocol Dextrose 1,000 mls @ 100 mls/hr 01/13/25 23:40 Dextrose 5% 1,000 Ml IVPB PRN PRN Hypoglycemia Protocol Insulin Aspart 4 - 8 units 01/14/25 08:00 01/15/25 09:05 Insulin Aspart (*Bkc) 100 Units/Ml SUB-Q Not Given TIDWM ON LICENSE OF [facility] Protocol Insulin Aspart 2 - 4 units 01/14/25 21:00 01/14/25 22:03 Insulin Aspart (*Bkc) 100 Units/Ml SUB-Q Not Given HS ON LICENSE OF [facility] Protocol Metoprolol Succinate 200 mg 01/14/25 09:00 01/15/25 09:12 Metoprolol Succinate Ext Rel 100 Mg Tabcr PO 200 mg QAM MIRNA Administration Nicotine 1 patch 01/14/25 09:00 01/15/25 09:13 Nicotine (*Pbkc) 21 Mg Patch TRANSDERM Not Given DAILY MIRNA Ondansetron HCl 4 mg 01/13/25 23:43 Ondansetron Inj 4 Mg/2 Ml Vial IV PUSH Q6H PRN Nausea And Vomiting Sacubitril/Valsartan 1 tab 01/13/25 23:55 01/15/25 09:13 Sacubitril/Valsartan 24-26 Mg Tablet PO 1 tab Q12HR MIRNA Administration Spironolactone 25 mg 01/14/25 09:00 01/15/25 09:13 Spironolactone 25 Mg Tablet PO 25 mg QAM MIRNA Administration Radiology Results: ITS Impressions Chest X-Ray 01/13/25 15:14 IMPRESSION: No acute cardiopulmonary pathology. Labs Labs: Laboratory Results - last 24 hr 01/14/25 01/14/25 01/15/25 12:27 20:00 04:18 WBC 10.1 H RBC 5.43 Hgb 15.7 Hct 50.3 MCV 92.6 MCH 28.9 MCHC 31.2 L RDW 14.9 H Plt Count 324 MPV 10.6 H Immature Gran % (Auto) 0.4 Neut % (Auto) 73.3 H Lymph % (Auto) 15.8 L [place] % (Auto) 8.9 H Eos % (Auto) 1.1 Baso % (Auto) 0.5 Lymph # (Auto) 1.60 [place] # (Auto) 0.9 H Eos # (Auto) 0.1 Baso # (Auto) 0.1 Abs Immat Gran (auto) 0.04 H Absolute Neuts (auto) 7.4 H Absolute Nucleated RBC 0.000 Nucleated RBC % 0.0 Sodium 141 Potassium 4.3 Chloride 105 Carbon Dioxide 25 Anion Gap 11 BUN 25 H Creatinine 0.88 Estim Creat Clear Calc 95 Estimated GFR > 60 Glucose 53 L* POC Capillary Glucose 74 124 H Calcium 9.5 Magnesium 2.0 Total Bilirubin 0.6 AST 26 ALT 24 Alkaline Phosphatase 74 Total Protein 7.0 Albumin 3.9 01/15/25 01/15/25 05:59 07:42 WBC RBC Hgb Hct MCV MCH MCHC RDW Plt Count MPV Immature Gran % (Auto) Neut % (Auto) Lymph % (Auto) [place] % (Auto) Eos % (Auto) Baso % (Auto) Lymph # (Auto) [place] # (Auto) Eos # (Auto) Baso # (Auto) Abs Immat Gran (auto) Absolute Neuts (auto) Absolute Nucleated RBC Nucleated RBC % Sodium Potassium Chloride Carbon Dioxide Anion Gap BUN Creatinine Estim Creat Clear Calc Estimated GFR Glucose POC Capillary Glucose 153 H 112 H Calcium Magnesium Total Bilirubin AST ALT Alkaline Phosphatase Total Protein Albumin
[2025-01-15 11:41] LABS: Glucose Point of Care 153 mg/dl (65-105)
--- NOTE | 2025-01-15 15:04 | PM.DS ---
DS: Admitting Diagnosis Discharge Date 01/15/25 Admitting Diagnosis shortness of breath/dyspnea DS: Summary Hospital Course Hospital Course: This is a 64-year-old male with a significant past medical history of diabetes, congestive heart failure with reduced ejection fraction Of 30-35%, hypertension, hyperlipidemia, AFib/a flutter on anticoagulation- Eliquis, coronary artery disease with coronary stent placement, myocardial infarction, COPD who presented to the hospital with complaints of shortness of breath/ dyspnea and dizziness that has persisted for a few days. patient had planned follow-up of a ZENA and cardioversion on an outpatient basis with Cardiology team. He denies any fever, chills, nausea, vomiting, diarrhea, abdominal pain, chest pain. he reports shortness of breath with activity, lightheadedness/ dizziness, tachycardia. Workup in the hospital included a chest x-ray which was negative. Initial labs showed a white blood cell count of 10.2, INR 1.1, blood sugar 173, troponin negative x2. UA was obtained which shown a urine specific gravity of 1.036, 3+ urine glucose, trace ketone, 3-5 urine RBC, 3-4 hyaline casts, otherwise unremarkable. Respiratory panel was negative for influenza a and B, RSV, COVID. Blood cultures were obtained and pending. Last echo was reviewed which shown reduced LV systolic function with an estimated EF of 30-35%, reduced RV systolic function, severe aortic valve calcification and stenosis severely calcified move mitral valve. EKG today shown atrial flutter with RVR with a rate of 135, QTC 452. Cardiology consulted. Cardiology was consulted and patient underwent ZENA with cardioversion, and cardiology recommended Metoprolol 200mg daily and patient will continue home anticoagulation. F/u with PCP in 3-5 days F/u with cardiology as instructed Time Spent with Patient Time attestation: Total time spent providing and/or coordinating discharge services: DS: Data Data Completed and Pending Labs on day of discharge: Labs from last 24 hours 01/15/25 01/15/25 01/15/25 11:29 07:42 05:59 WBC RBC Hgb Hct MCV MCH MCHC RDW Plt Count MPV Immature Gran % (Auto) Neut % (Auto) Lymph % (Auto) [place] % (Auto) Eos % (Auto) Baso % (Auto) Lymph # (Auto) [place] # (Auto) Eos # (Auto) Baso # (Auto) Abs Immat Gran (auto) Absolute Neuts (auto) Absolute Nucleated RBC Nucleated RBC % Sodium Potassium Chloride Carbon Dioxide Anion Gap BUN Creatinine Estim Creat Clear Calc Estimated GFR Glucose POC Capillary Glucose 153 H 112 H 153 H Calcium Magnesium Total Bilirubin AST ALT Alkaline Phosphatase Total Protein Albumin 01/15/25 01/14/25 04:18 20:00 WBC 10.1 H RBC 5.43 Hgb 15.7 Hct 50.3 MCV 92.6 MCH 28.9 MCHC 31.2 L RDW 14.9 H Plt Count 324 MPV 10.6 H Immature Gran % (Auto) 0.4 Neut % (Auto) 73.3 H Lymph % (Auto) 15.8 L [place] % (Auto) 8.9 H Eos % (Auto) 1.1 Baso % (Auto) 0.5 Lymph # (Auto) 1.60 [place] # (Auto) 0.9 H Eos # (Auto) 0.1 Baso # (Auto) 0.1 Abs Immat Gran (auto) 0.04 H Absolute Neuts (auto) 7.4 H Absolute Nucleated RBC 0.000 Nucleated RBC % 0.0 Sodium 141 Potassium 4.3 Chloride 105 Carbon Dioxide 25 Anion Gap 11 BUN 25 H Creatinine 0.88 Estim Creat Clear Calc 95 Estimated GFR > 60 Glucose 53 L* POC Capillary Glucose 124 H Calcium 9.5 Magnesium 2.0 Total Bilirubin 0.6 AST 26 ALT 24 Alkaline Phosphatase 74 Total Protein 7.0 Albumin 3.9 Preliminary micro results at discharge 01/13/25 14:55 Blood Culture - Preliminary Blood 01/13/25 14:55 Blood Culture - Preliminary Blood Discharge Plan Discharge Attending physician on discharge: Adonay Rivera Consulting providers: Nigel Lane Discharging Clinician: Adonay Rivera Anticipated Discharge Date/Time: 01/15/25 15:03 Patient Disposition: Home, Self-Care Activity: as tolerated Diet: as tolerated Patient Instructions: Antibiotic Form Patient Language: Arabic Stand Alone Forms: General Discharge Information Follow-up/Referrals: Nigel Lane MD [Physician] - (F/u with cardiology as instructed ) Isma,Mohan Duarte MD [Primary Care Provider] - (F/u with PCP in 3-5 days ) Discharge Medications: Continued metformin 1,000 mg tablet 1,000 mg PO BID clopidogrel 75 mg tablet 75 mg PO DAILY atorvastatin 40 mg tablet 40 mg PO DAILY gemfibrozil 600 mg tablet 600 mg PO BID furosemide 40 mg Tablet 40 mg PO DAILY 30 Days Qty: 30 1RF spironolactone 25 mg Tablet 25 mg PO QAM 30 Days Qty: 30 1RF Eliquis 5 mg Tablet 5 mg PO Q12HR 30 Days Qty: 60 1RF Jardiance 10 mg Tablet 10 mg PO DAILY 30 Days Qty: 30 1RF sacubitril-valsartan [Entresto] 24-26 mg Tablet 1 tab PO Q12HR 30 Days Qty: 60 1RF metoprolol tartrate 75 mg tablet 75 mg PO ONCE Qty: 2 0RF Changed metoprolol succinate 100 mg tablet extended release 24 hr 200 mg PO DAILY 30 Days Qty: 68 1RF Date of admission: 01/13/25 16:39 Primary Care Provider: Isma,Mohan Duarte Admitting Provider: Buddy Beauchamp Attending physician on admission: Adonay Rivera Condition: Stable
== END 2025-01-15 15:30 | disposition home or self-care (01) ==
LOC: ANHED 16:00 → ANHIMU 16:54
PROVIDERS: Internal Medicine; Nurse Practitioner Acute Care; Registered Nurse; Admitting Provider General Practice; Emergency Provider Emergency Medicine; PCP Internal Medicine; Visit Provider Internal Medicine
PROC: (CPT 93312; principal; 2025-01-14 14:00)
PROC: 5A2204Z Restoration of Cardiac Rhythm, Single (ICD-10-PCS; 2025-01-14 14:00)
DX: I48.92 Unspecified atrial flutter (principal); I48.91 Unspecified atrial fibrillation; I35.0 Nonrheumatic aortic (valve) stenosis; I11.0 Hypertensive heart disease with heart failure; I50.21 Acute systolic (congestive) heart failure; I25.10 Atherosclerotic heart disease of native coronary artery without angina pectoris; I25.2 Old myocardial infarction; E78.5 Hyperlipidemia, unspecified; E11.9 Type 2 diabetes mellitus without complications; F17.210 Nicotine dependence, cigarettes, uncomplicated; J44.9 Chronic obstructive pulmonary disease, unspecified; Z20.822 Contact with and (suspected) exposure to COVID-19; Z95.5 Presence of coronary angioplasty implant and graft; Z79.01 Long term (current) use of anticoagulants; Z79.899 Other long term (current) drug therapy; Z86.16 Personal history of COVID-19; Z96.1 Presence of intraocular lens; Z98.49 Cataract extraction status, unspecified eye
CPT/HCPCS: 36415; 71046; 80053; 81001; 82948; 83605; 83690; 83735; 84484; 85025; 85610; 85730; 86140; 87040; 87637; 92960; 93005; 93312; 93320; 93325; 96360; 96361; 99285; A9270; C8925; G0378; J2250; J3010; J7030; J7040; Q9957

== ENCOUNTER 2025-02-18 00:41 | Day surgery (SDC) | payer OTHER, SELFPAY ==
--- NOTE | 2025-02-13 12:34 | PC.NURSE ---
Called patient at 1230 for Pre Procedure screening. Patient stated that he took his Eliquis the night before and the directions given to patient was to hold Eliquis for [address] Dunlap and she stated procedure needs to be rescheduled. I informed patient that the procedure will need rescheduled and that the office will call him about rescheduling. Patient understood and will wait to hear from the office.
[2025-02-17 10:41] VITALS: BMI 32.5
[2025-02-18] VITALS (16 sets, daily range): BP systolic 101–143; BP diastolic 66–98; PULSE 64–78; RESP 11–18; TEMP 36.3; O2SAT 91–97
--- OUTSIDE RECORDS SUMMARY | 2025-02-18 00:43 | XMS_ITS | Clinical Summary ---
Author Organization [facility] [address] Address [address] [place] [address] Care Team Providers Care Seater Grinder Name Role Phone Mohan Ashby MD Primary Care Provider [phone] Allergies No known active allergies Medications atorvastatin (LIPITOR) 40 mg tablet take 1 tablet by oral route every day 0 0 01/31/20 15 Active metFORMIN (GLUCOPHAGE) 1,000 mg tablet TAKE 2 TABLET DAILY--NEEDS TO MAKE AND KEEP APPT. 60 1 04/09/20 15 Active aspirin 81 mg chewable tablet chew 1 tablet by oral route every day 0 0 02/04/20 16 Active Additional Information Patient not taking.Reported on 01/06/2025 gemfibrozil (LOPID) 600 mg tablet take 1 tablet (600MG) by oral route 2 times every day 30 minutes before morning and evening meal 60 6 10/15/20 12 Active clopidogrel (PLAVIX) 75 mg tablet TAKE ONE TABLET DAILY 30 2 08/30/20 12 Active BASAGLAR 100 unit/mL (3 mL) pen for injection 82 Units 02/14/20 23 Active Eliquis 5 mg tablet Take 1 tablet (5 mg total) by mouth every 12 (twelve) hours 01/03/20 25 Active Entresto 24-26 mg tablet Take 1 tablet by mouth every 12 (twelve) hours 01/03/20 25 Active furosemide (LASIX) 40 mg tablet Take 1 tablet (40 mg total) by mouth daily 01/03/20 25 Active Jardiance 10 mg tablet Take 1 tablet (10 mg total) by mouth daily 01/03/20 25 Active spironolactone (ALDACTONE) 25 mg tablet Take 1 tablet (25 mg total) by mouth every morning 01/03/20 25 Active metoprolol XL (TOPROL-XL) 200 mg extended release tablet TAKE 1 TABLET BY MOUTH EVERY DAY 90 tablet 01/21/20 25 Active metoprolol XL (TOPROL-XL) 25 mg extended release tablet TAKE 1 TABLET (25 MG TOTAL) BY MOUTH DAILY. 90 tablet 01/21/20 25 026 Active metoprolol XL (TOPROL-XL) 200 mg extended release tablet Take 1 tablet (200 mg total) by mouth daily 30 tablet 2 01/10/20 25 025 Discontinued metoprolol XL (TOPROL-XL) 25 mg extended release tablet Take 1 tablet (25 mg total) by mouth daily 30 tablet 2 01/10/20 25 025 Discontinued Active Problems Problem Noted Date Diagnosed Date Aortic valve stenosis 02/04/2025 Persistent atrial fibrillation 01/06/2025 Nonrheumatic aortic valve stenosis 06/16/2022 Morbid (severe) obesity due to excess calories 0 06/16/2022 Coronary artery disease invo lving [place] coronary artery of [place] heart without angina pectoris 01/25/2018 History of coronary artery stent placement 01/25 shelter current use of insulin 04/30/2014 Hyperlipidemia 01/27/2014 Seborrheic eczema 01/27/2014 Atherosclerosis of coronary artery 01/27/2014 Overview (02/23/2018): Description: s/p two stents Hypertension 01/27/2014 Type 2 diabetes mellitus 01/27/2014 Encounters Date Type Department Care Team Description 02/04/2025 2:30 PM CDT Office Visit [facility] Surgery [address] [place] [address] [address] [place] [address] Anthony Dunn MD Aortic valve stenosis, etiology of cardiac valve disease unspecified (Primary Dx) 02/04/2025 Orders Only [facility] Surgery [address] [place] [address] [address] [place] [address] Anthony Dunn MD Nonrheumatic aortic valve stenosis (Primary Dx) 02/04/2025 Telephone [facility] Cardiology [address] [place] [phone] Ilan Reich MD 01/29/2025 Telephone [facility] Cardiology [address] [place] [phone] Ilan Reich MD 01/22/2025 Telephone [facility] Cardiology [address] [facility] [address] [place] [phone] Ilan Reich MD 01/22/2025 Orders Only [facility] Cardiology [address] [place] [address] [address] [place] [phone] Jennie Dunlap MD 01/21/2025 Telephone [facility] Cardiology [address] [place] [address] [address] [place] [phone] Ilan Reich MD 01/13/2025 Orders Only [facility] Cardiology [address] [place] [address] [place] [phone] Jennie Dunlap MD 01/13/2025 Telephone [facility] Cardiology [address] [place] [address] [address] [place] [phone] Ilan Reich MD 01/13/2025 Telephone [facility] Cardiology [address] [place] [address] [address] [place] [phone] Ilan Reich MD Shortness of Breath; Rapid Heart Rate; Fatigue 01/09/2025 Telephone [facility] Cardiology [address] [place] [address] [place] [phone] Ilan Reich MD Med Refill 01/06/2025 4:00 PM DROP TESTER Office Visit [facility] Cardiology [address] [place] [address] [address] [place] [phone] Ilan Reich MD History of coronary artery stent placement (Primary Dx); Nonrheumatic aortic valve stenosis; Coronary artery disease involving [place] coronary artery of [place] heart without angina pectoris; Persistent atrial fibrillation (HCC) 01/06/2025 Telephone [facility] Cardiology [address] [place] [address] [address] [place] [phone] Ilan Reich MD 12/20/2024 Telephone [facility] Medical [facility] Cardiology [address] [place] [address] Ilan Reich MD Shortness of Breath from Last 3 Months Immunizations Immunization Administration Dates Next Due Pneumococcal Polysaccharide PPV23 01/27/2014 Medical History Medical History Date Comments Hypertension Hypertension Chronic obstructive pulmonar y disease (HCC) COPD shelter current use of insulin (HCC) [employer] truck driver current use of insulin - (Added by TW Conv) Family History [...] on file Legal Sex Male 4:11 AM DROP TESTER Gender Identity Not on file Sexual Orientation Not on file Obstetrics History Last Filed Vital Signs Vital Sign Reading Time Taken Comments Blood Pressure 126/87 02/04/2025 2:41 PM CDT Pulse 55 02/04/2025 2:41 PM CDT Temperature - - Respiratory Rate 16 02/04/2025 2:41 PM CDT Oxygen Saturation 94% 02/04/2025 2:41 PM CDT Inhaled Oxygen Concentration - - Weight 109.3 kg (241 lb) 02/04/2025 2:41 PM CDT Height 182.9 cm (6') 02/04/2025 2:41 PM CDT Body Mass Index 32.69 02/04/2025 2:41 PM CDT Plan of Treatment Upcoming Encounters Date Type Department Care Team (Latest Contact Info) Description 03/03/2025 8:00 AM CDT Hospital Encounter [facility] Operating Room [address] [place] [address] [place] [id number] [facility] BLDG [address] [address] 03/03/2025 8:00 AM CDT - 03/03/2025 1:30 PM CDT Surgery [facility] Operating Room [address] [place] [address] [place] [id number] [address] [address] REPLACEMENT AORTIC VALVE, ENCOMPASS CLAMP, POSS CABG X 1/240min Scheduled Procedures Name Priority Associated Diagnoses Date/Ti me REPLACEMENT AORTIC VALVE Aortic valve stenosis, etiology of cardiac valve disease unspecified 03/03/2025 8:00 AM CDT Health Maintenance Due Date Last Done Comments [...] 2 - PCV) 01/27/2015 01/27/2014 Influenza Vaccine (Season Ended) 2025 10/05/20 21 Lipid Panel 01/06/2026 01/06/2025, 11/0 07/2023, 06/16/2022, Additional history exists DTaP/Tdap/Td Vaccine (2 - Td or Tdap) 03/11/2032 03/11/2022 Procedures Procedure Name Priority Date/Time Associated Diagnosis Comments CARDIOLOGY DOCUMENT SCAN Routine 025 11:20 AM DROP TESTER CARDIOLOGY DOCUMENT SCAN Routine 025 9:59 AM DROP TESTER CARDIOLOGY DOCUMENT SCAN Routine 025 9:57 AM DROP TESTER ELECTROCARDIOGRAM REPORT Routine 4:40 PM DROP TESTER Coronary artery disease involving [place] coronary artery of [place] heart without angina pectoris Persistent atrial fibrillation (HCC) POCT LIPID PANEL Routine 01/06/2025 4:12 PM DROP TESTER History of coronary artery stent placement Coronary artery disease involving [place] coronary artery of [place] heart without angina pectoris CARDIOLOGY DOCUMENT SCAN Routine 025 12:18 PM DROP TESTER from Last 3 Months Results * Cardiology Document Scan (01/15/2025 11:20 AM DROP TESTER) Anatomical Region Laterality Modality Other Jennie Dunlap MD [facility] PRO CEDURES Final Result * Cardiology Document Scan (01/15/2025 9:59 AM DROP TESTER) Anatomical Region Laterality Modality Other Jennie Dunlap MD CV CARDIAC SERVICES PRO CEDURES Final Result * Cardiology Document Scan (01/14/2025 9:57 AM DROP TESTER) Anatomical Region Laterality Modality Other Jennie Dunlap MD CV CARDIAC SERVICES PRO CEDURES Final Result * Electrocardiogram Report (01/06/2025 4:40 PM DROP TESTER) Ilan Reich MD ECG ORDERABLES Final Re sult * POCT lipid panel (01/06/2025 4:12 PM DROP TESTER) Cholesterol, POC <100 mg/dL Comment:GLU = 277 HDL, POC 32 mg/dL Triglycerides, POC 77 mg/dL LDL Cholesterol POC 52 mg/dL Chol/HDL Ratio, POC N/A Non-HDL Cholesterol, POC N/A mg/dL Cholesterol Total, POC <100 mg/dL Capillary blood 01/06/2025 4 :12 PM DROP TESTER Ilan Reich MD POINT OF CARE TEST ORDER DONNELL Final Result * Cardiology Document Scan (01/01/2025 12:18 PM DROP TESTER) Anatomical Region Laterality Modality Other Jennie Dunlap MD CV CARDIAC SERVICES PRO CEDURES Final Result from Last 3 Months Insurance [facility] [id number] [facility] [id number] [facility] [place] [id number] Care Teams Seater Grinder Relationship Specialty Start Date End Date Mohan Ashby MD PCP - General Internal Medicine 01/25/18
--- OUTSIDE RECORDS SUMMARY | 2025-02-18 00:44 | XMS_ITS | CONTINUITY OF CARE DOCUMENT ---
Author Name kyree adorno Address Unknown Organization [facility] Address [address] [facility] [address] [place] [address] Phone [phone] Care Team Providers Care Caterpillar Driver Name Role Phone Parminder Staples MD Unavailable Praminder Staples MD Unavailable [phone] INSURANCE PROVIDERS Payer name Policy type / Coverage type Wayne red democrat ID [employer] Commercial insurance co alex [id number]
--- OUTSIDE RECORDS SUMMARY | 2025-02-18 00:44 | XMS_ITS | Encounter Summary ---
Author Organization [facility] Healthcare Address [address] [place] [id number] Care Team Providers Care Sloop Captain Name Role Phone Mohan Ashby MD Primary Care Provider [phone] Encounter Details Date Type Department Care Team (Late st Contact Info) Description 01/22/2025 Telephone [facility] Medical Group Cardiology [address] [facility] [address] [place] [address] Ilan Reich MD [address] [facility] [address] [place], [place] [id number] Social History Tobacco Use Types Packs/Day Years Used Date Smoking Tobacco: Every Day Comments:Smoking History Pac ks/day: 1 Packs Alcohol Use Standard Drinks/Week Comments Yes 0 (1 standard drink = 0.6 oz pur e alcohol) Sex and Gender Information Value Date Recorded Sex Assigned at Not on file Legal Sex 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 * Telephone Encounter - Gosia Cordero RN - 01/22/2025 2:41 PM CDT Spoke with Medical records, they will produce a disc and drop off to office within a day or two. Once received will contact pt for pickup. * Telephone Encounter - Gosia Cordero RN - 01/22/2025 2:19 PM CDT Spoke with Hope at [facility] office and she said is having trouble getting the images sent to [facility] electronically so pt will need to bring a disc with them to appt on 02/04. Called CD and requested CDsto be made. Provided our backline when disc is finished. * Telephone Encounter - Rosa Vaca - 01/22/2025 11:45 AM CDT Pt spouse requesting a copy of discs for ZENA and TTE to give to a surgeon. (Pt does not know surgeons name) Contact: documented in this encounter Plan of Treatment Upcoming Encounters Date Type Department Care Team (Latest Contact Info) Description 03/03/2025 8:00 AM CDT Hospital Encounter [facility] Operating Room [address] [place] [address] [place] [id number] [address] [facility] [address] [address] 03/03/2025 8:00 AM CDT - 03/03/2025 1:30 PM CDT Surgery [facility] Operating Room [address] [place] [address] [place] [address] [address] [facility] [address] [address] REPLACEMENT AORTIC VALVE, ENCOMPASS CLAMP, POSS CABG X 1/240min Scheduled Procedures Name Priority Associated Diagnoses Date/Ti me REPLACEMENT AORTIC VALVE Aortic valve stenosis, etiology of cardiac valve disease unspecified 03/03/2025 8:00 AM CDT documented as of this encounter Visit Diagnoses Not on filedocumented in this encounter Care Teams Sloop Captain Relationship Specialty Start Date End Date Mohan Ashby MD PCP - General Internal Medicine 01/25/18 documented as of this encounter
--- OUTSIDE RECORDS SUMMARY | 2025-02-18 00:44 | XMS_ITS | Referral Summary ---
Author Organization [facility] [address] [place] [address] 162 [address] [place] [address] Care Team Providers Care General Purchasing Agent Name Role Phone Mohan Ashby MD Primary Care Provider Encounters Date Type Department Care Team Description 02/04/2025 Orders Only [facility] Surgery [address] [place] [address] [address] [place] [address] Anthony Dunn MD Nonrheumatic aortic valve stenosis (Primary Dx) 02/04/2025 Telephone [facility] Medical [facility] Cardiology [address] [facility] [address] [place] [address] Ilan Reich MD 02/04/2025 2:30 PM CDT Office Visit [facility] Surgery [address] [place] [address] [address] [place] [address] Anthony Dunn MD Aortic valve stenosis, etiology of cardiac valve disease unspecified (Primary Dx) 01/29/2025 Telephone [facility] Medical [facility] Cardiology [address] [facility] [address] [place] [address] Ilan Reich MD 01/22/2025 Telephone [facility] Cardiology [address] [facility] [address] [place] [phone] Ilan Reich MD 01/22/2025 Orders Only [facility] Medical [facility] Cardiology [address] [facility] [address] [place] [address] Jennie Dunlap MD 01/21/2025 Telephone [facility] Cardiology [address] [facility] [address] [place] [address] Ilan Reich MD 01/13/2025 Orders Only [facility] Cardiology [address] [place] [address] [place] [address] Jennie Dunlap MD 01/13/2025 Telephone [facility] Cardiology [address] [place] [address] [place] [phone] Ilan Reich MD 01/13/2025 Telephone [place] [address] [place] [phone] Ilan Reich MD Shortness of Breath; Rapid Heart Rate; Fatigue 01/09/[address] [address] Ilan Reich MD Med Refill 01/06/2025 Telephone [place] [address] [place] [address] Ilan Reich MD 01/06/2025 4:00 PM RIM FIRE PRIMING OPERATOR Office Visit [address] [address] Ilan Reich MD History of coronary artery stent placement (Primary Dx); Nonrheumatic aortic valve stenosis; Coronary artery disease involving samish coronary artery of samish heart without angina pectoris; Persistent atrial fibrillation (HCC) 12/20/2024 Telephone [place] [address] [place] [address] Ilan Reich MD Shortness of Breath from [...] 0 06/16/2022 Coronary artery disease invo lving samish coronary artery of samish heart without angina pectoris 01/25/2018 History of coronary artery stent placement 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 Operating Room [address] [place] [address] [place] [id number] [address] BLDG [address] [address] 03/03/2025 8:00 AM CDT - 03/03/2025 1:[address] [facility] Operating Room [address] [place] [address] [place] [address] [address] BLDG [address] [address] REPLACEMENT AORTIC VALVE, ENCOMPASS CLAMP, POSS CABG X 1/240min Scheduled Procedures Name Priority Associated Diagnoses Date/Ti me REPLACEMENT AORTIC VALVE Aortic valve stenosis, etiology of cardiac valve disease unspecified 03/03/2025 8:00 AM CDT Procedures Procedure Name Priority Date/Time Associated Diagnosis Comments CARDIOLOGY DOCUMENT SCAN Routine 11:20 AM RIM FIRE PRIMING OPERATOR CARDIOLOGY DOCUMENT SCAN Routine 9:59 AM RIM FIRE PRIMING OPERATOR CARDIOLOGY DOCUMENT SCAN Routine 9:57 AM RIM FIRE PRIMING OPERATOR ELECTROCARDIOGRAM REPORT Routine 4:40 PM RIM FIRE PRIMING OPERATOR Coronary artery disease involving samish coronary artery of samish heart without angina pectoris Persistent atrial fibrillation (HCC) POCT LIPID PANEL Routine 01/06/2025 4:12 PM RIM FIRE PRIMING OPERATOR History of coronary artery stent placement Coronary artery disease involving samish coronary artery of samish heart without angina pectoris CARDIOLOGY DOCUMENT SCAN Routine 12:18 PM RIM FIRE PRIMING OPERATOR from Last 3 Months Results * Cardiology Document Scan (01/15/2025 11:20 AM RIM FIRE PRIMING OPERATOR) Anatomical Region Laterality Modality Other Jennie Dunlap MD CV CARDIAC SERVICES PRO CEDURES Final Result * Cardiology Document Scan (01/15/2025 9:59 AM RIM FIRE PRIMING OPERATOR) Anatomical Region Laterality Modality Other Jennie Dunlap MD CV CARDIAC SERVICES PRO CEDURES Final Result * Cardiology Document Scan (01/14/2025 9:57 AM RIM FIRE PRIMING OPERATOR) Anatomical Region Laterality Modality Other Jennie Dunlap MD CV CARDIAC SERVICES PRO CEDURES Final Result * Electrocardiogram Report (01/06/2025 4:40 PM RIM FIRE PRIMING OPERATOR) Ilan Reich MD ECG ORDERABLES Final Re sult * POCT lipid panel (01/06/2025 4:12 PM RIM FIRE PRIMING OPERATOR) Cholesterol, POC <100 mg/dL Comment:GLU = 277 HDL, POC 32 mg/dL Triglycerides, POC 77 mg/dL LDL Cholesterol POC 52 mg/dL Chol/HDL Ratio, POC N/A Non-HDL Cholesterol, POC N/A mg/dL Cholesterol Total, POC <100 mg/dL Capillary blood 01/06/2025 4 :12 PM RIM FIRE PRIMING OPERATOR us Ilan Reich MD POINT OF CARE TEST ORDER DONNELL Final Result * Cardiology Document Scan (01/01/2025 12:18 PM RIM FIRE PRIMING OPERATOR) Anatomical Region Laterality Modality Other us Jennie Dunlap MD CV CARDIAC SERVICES PRO CEDURES Final Result from Last 3 Months Insurance [facility] Address: [place] [address] [facility] Address: [address] [address] [facility]/PPO Address: [facility] [id number] [place] [id number] Care Teams General Purchasing Agent Relationship Specialty Start Date End Date Mohan Ashby MD PCP - General Internal Medicine 01/25/18
--- OUTSIDE RECORDS SUMMARY | 2025-02-18 00:44 | XMS_ITS | Clinical Summary ---
Author Organization [facility] Address [employer] [address] [place] [address] Phone Care Team Providers Care Magazine Grinder Loader Name Role Phone Mohan Ashby MD Primary Care Provider [phone] Ilan Reich MD Unavailable [phone] Allergies No known active allergies Medications aspirin [...] mouth daily. 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
[2025-02-18 08:27] LABS: Anion Gap 7 mmol/L (4-12); Blood Urea Nitrogen 22 mg/dL (9-20); Calcium 9.5 mg/dL (8.4-10.2); Carbon Dioxide 28 mmol/L (22-30); Chloride 104 mmol/L (98-107); Estimated CRCL calculation 83 ml/min; Estimated Glomerular Filt Rate > 60; Glucose 137 mg/dL (65-110); Sodium 139 mmol/L (137-145)
[2025-02-18 08:29] LABS: Basophils Percent Auto 0.5 % (0.2-1.2); Eosinophils Absolute Auto 0.3 K/mm3 (0-0.3); Eosinophils Percent Auto 3.3 % (0-4.4); Hematocrit 54.1 % (42.0-52.0); Hemoglobin 17.5 g/dL (14.0-18.0); Immature Granulocyte Absolute 0.03 K/mm3 (0.00-0.031); Immature Granulocyte Percent A 0.4 % (0-0.5); Lymphocytes Absolute Auto 1.25 K/mm3 (0.9-3.2); Lymphocytes Percent Auto 15.8 % (18.3-44.2); Mean Corpuscular HGB Conc 32.3 g/dl (32-36); Mean Corpuscular Hemoglobin 28.3 pg (26-34); Mean Corpuscular Volume 87.5 fl (80-100); Mean Platelet Volume 10.1 fl (7.4-10.4); Monocytes Absolute Auto 0.7 K/mm3 (0.1-0.6); Monocytes Percent Auto 8.8 % (2.6-8.5); Neutrophils Absolute Auto 5.6 K/mm3 (1.3-6.7); Neutrophils Percent Auto 71.2 % (45.5-73.1); Platelet Count Result 297 k/mm3 (150-375); Red Blood Count 6.18 M/mm3 (4.6-6.20); Red Cell Distribution Width 14.4 % (11.5-14.5); White Blood Count 7.9 K/mm3 (4.5-10.0)
--- NOTE | 2025-02-18 10:08 | P.SEDATION_ITS ---
Moderate Sedation Note-Pt Data Patient Data Diagnosis: Coronary artery disease Present Complaint: Coronary artery disease Procedure to be performed/Plan: Coronary angiography, left heart cath, +/- PCI Allergies Allergy/AdvReac Type Severity Reaction Status Date / Time No Known Allergies Allergy Verified 02/18/25 07:59 Home Medications ?Medication ?Instructions ?Recorded ?Confirmed ?Type atorvastatin 40 mg tablet 40 mg PO DAILY 12/12/22 02/17/25 History clopidogrel 75 mg tablet 75 mg PO DAILY 12/12/22 02/17/25 History gemfibrozil 600 mg tablet 600 mg PO BID 12/12/22 02/17/25 History metformin 1,000 mg tablet 1,000 mg PO BID 12/12/22 02/17/25 History apixaban 5 mg tablet (Eliquis) 5 mg PO Q12HR 30 days #60 tabs 01/03/25 02/17/25 Rx empagliflozin 10 mg tablet 10 mg PO DAILY 30 days #30 tabs 01/03/25 02/17/25 Rx (Jardiance) furosemide 40 mg tablet 40 mg PO DAILY 30 days #30 tabs 01/03/25 02/17/25 Rx metoprolol tartrate 75 mg tablet 75 mg PO ONCE #2 tabs 01/03/25 02/17/25 Rx sacubitril 24 mg-valsartan 26 mg 1 tab PO Q12HR 30 days #60 tabs 01/03/25 02/17/25 Rx tablet (Entresto) spironolactone 25 mg tablet 25 mg PO QAM 30 days #30 tabs 01/03/25 02/17/25 Rx metoprolol succinate 100 mg 200 mg (2 x 100 mg) PO DAILY 30 01/15/25 02/17/25 Rx tablet,extended release 24 hr days #68 tabs Current Medications: Active Medications Sodium Chloride (Normal Saline Iv) 500 mls @ 100 mls/hr IV CONT .Q5H MIRNA Sedation/Anesthesia: No previous sedation/anesthesia problems (including family history). [facility] Past Medical History Medical History Myocardial infarction COPD (chronic obstructive pulmonary disease) Cataracts, bilateral Tobacco dependence Mild aortic stenosis Hyperlipidemia Hypertension Insulin dependent type 2 diabetes mellitus Coronary artery disease Surgical History Surgical History S/P coronary artery stent placement H/O cataract removal with insertion of prosthetic lens History of cataract extraction History of coronary artery stent placement mid LAD Family History Family History Father Cerebrovascular accident Other Diabetes mellitus Social History Social History Social History: Surrogate medical decision maker: Janie Lange, spouse ([phone]). Code status: Full code. Smoking packs per day: 0.5 Smoking cigarettes per day: 10.0 Years smoked: 48 Smoking pack-years: 24.00 Smoking status: Former smoker Tobacco type: cigarettes Second hand tobacco smoke exposure: No Smoking end date: 12/14/24 Alcohol intake: current Drinks per week: 2 Alcohol use details: social alcohol use in moderation Substance use: never Substance use type: does not use Do You Feel Safe in your Home?: Yes Lack of Transportation: No Lack of Food: Never True Current Housing: I Have Housing Concerned About Future Housing: No Difficulty Paying Gas/Electric Bills: No Difficulty Paying for Meds: No Currently Unemployed: No Education: Trade/Vocational Certificate Difficulty w/ Childcare or Family Care: No Living arrangements: with family Spiritual care concerns: No Mod Sed Physical Exam Physical Exam Pre Procedural Exam: Normal: Appearance, Lungs, Heart Rate, Heart Rhythm, Neuro Exam, Extremities and Skin Hours since solid foods: 12 Hours since liquid intake: 8 Mallampati Classification: class III Internal Medicine - PN: Obj Da Vital Signs Vital Signs: Vital Signs - 24 hr 02/18/25 08:00 Temperature 36.3 C L Pulse Rate 68 Respiratory Rate 18 Blood Pressure 143/98 H Pulse Oximetry 97 Oxygen Delivery Room Air Meds/Results Medications: Active Medications Generic Name Dose Route Start Last Admin Trade Name Freq PRN Reason Stop Dose Admin Sodium Chloride 500 mls @ 100 mls/hr 02/18/25 08:00 Normal Saline Iv IV CONT .Q5H MIRNA Labs 02/18/25 07:58 02/18/25 07:58 Labs: Laboratory Results - last 24 hr 02/18/25 07:58 WBC 7.9 RBC 6.18 Hgb 17.5 Hct 54.1 H MCV 87.5 MCH 28.3 MCHC 32.3 RDW 14.4 Plt Count 297 MPV 10.1 Immature Gran % (Auto) 0.4 Neut % (Auto) 71.2 Lymph % (Auto) 15.8 L [place] % (Auto) 8.8 H Eos % (Auto) 3.3 Baso % (Auto) 0.5 Lymph # (Auto) 1.25 [place] # (Auto) 0.7 H Eos # (Auto) 0.3 Baso # (Auto) 0.0 Abs Immat Gran (auto) 0.03 Absolute Neuts (auto) 5.6 Absolute Nucleated RBC 0.000 Nucleated RBC % 0.0 Sodium 139 Potassium 4.0 Chloride 104 Carbon Dioxide 28 Anion Gap 7 BUN 22 H Creatinine 0.86 Estim Creat Clear Calc 83 Estimated GFR > 60 Glucose 137 H Calcium 9.5 ASA Classification/Sedation ASA Classification/Sedation ASA Class: III Emergent: No Risks: Risks, benefits and alternatives explained and patient/family accepted plan for sedation. Patient re-evaluated immediately prior to sedation.
--- NOTE | 2025-02-18 10:08 | WPDHPUPDATE1 ---
History and Physical Update Update Date/Time: 02/18/25 10:08 History and Physical has been reviewed, including an updated exam of the patient. There are NO changes in the patient's condition. Risks, benefits, and alternatives have been discussed and questions answered. Patient agrees to proceed with procedure.
--- NOTE | 2025-02-18 11:26 | WPDCARDPROC ---
Cardiac Cath Procedure Note Date of procedure:: 02/18/25 Performing physician:: CATHETERIZATION LABORATORY REPORT Procedure Date: 02/18/2025 Director Day Care Center: Jennie Dunlap M.D., [facility]? Referring Physician: Dr. Shaun M.D. ? Anesthesia: Versed and Fentanyl were ordered and given in my presence at 10:33, procedure ended at 11:17. Supervision of nurse monitored moderate sedation with Versed and Fentanyl was provided for 44 minutes. Total of Versed 1mg and Fentanyl 25mcg were administered by the Elementary Tutor RN Freddie Moore. Pre-op Diagnosis: Coronary artery disease Post-op Diagnosis: 1. Stents visualized in the proximal-mid LAD. In the mid LAD, there is a borderline 70% focal in-stent restenosis. Immediately distal to the stent, there appears to be a 70-80% stenosis. The distal LAD has diffuse disease. LAD disease is significant for ischemia by IFR of 0.85. 2. The left circumflex artery is the dominant vessel. There are 2 posterolateral branches with 70% eccentric ostial disease. One of these branches is short, however, the other branch is longer. The ostial disease is seen best on the AP Cranial, MOZAMBICAN Cranial, MOZAMBICAN caudal, AP Caudal views. Procedure(s): 1. Moderate sedation 2. Ultrasound-guided access of the right radial artery 3. Coronary angiography 4. IFR of LAD Access Site: Right radial artery Brief History and Clinical Indications: Patient is a 64 year old male with CAD s/p PCI, severe bicuspid aortic valve stenosis who is referred for [facility] for workup of aortic valve replacement. All risks, benefits and alternatives to left heart catheterization with or without percutaneous coronary intervention was discussed at length with the patient. Risk of complications including but not limited to bleeding, infection, arrhythmia, stroke, worsening kidney function, blood loss, groin hematoma, limb loss, emergency coronary artery bypass grafting, and even were discussed with the patient and all questions were answered. The patient understood and wished to proceed. Time out called, patient name, date of , medical record number, allergies, procedure performed, identify Director Day Care Center, patient and staff member concurred with accurate data, procedure carried on. Findings: LEFT HEART CATHETERIZATION FINDINGS: 1. Left main: The left main coronary artery is patent without any significant obstructive disease. 2. Left anterior descending: Stents visualized in the proximal-mid LAD. Heavy calcification seen in the apical LAD. In the mid LAD, there is a borderline 70% focal in-stent restenosis. Immediately distal to the stent, there appears to be a 70-80% stenosis. The distal LAD has diffuse disease. 3. Ramus: Mild disease in the proximal portion. 4. Left circumflex: The left circumflex artery is the dominant vessel. The proximal and mid LCX has mild disease. There are 2 posterolateral branches with 70% eccentric ostial disease. One of these branches is short, however, the other branch is longer. The ostial disease is seen best on the AP Cranial, MOZAMBICAN Cranial, MOZAMBICAN caudal, AP Caudal views. 5. Right coronary artery: The RCA is a small caliber non-dominant vessel. The RV marginal branch has a moderate focal stenosis in the mid portion. 6. Left ventricle: The aortic valve was not crossed due to known severe aortic stenosis. Description of Procedure: Informed consent signed and placed in the chart. Patient transferred to bottle label inspector room. Prepped and draped in usual sterile fashion. 2% lidocaine injected subcutaneously in right wrist area. 22-gauge venipuncture catheter used to access the right radial artery under ultrasound guidance. 6-FR slender sheath placed in right radial artery. Nitroglycerine and Verapamil were given intraarterial through the sheath. Versacore wire advanced under fluoroscopy 5F Tig 4 diagnostic catheter engaged Left Main Coronary Artery. 5F Tig 4 diagnostic catheter engaged Right Coronary Artery Multiple orthogonal angiogram obtained and reviewed. Angiomax was used for anticoagulation. 6F CLS 3.0 guide catheter was used to intubate the left main, however, the guide catheter kept selectively engaging into LCX, therefore, switched out to 6F FL 4 guide catheter. 0.014 [place] coronary wire was advanced into the vessel, calibrated, and then advanced distal to the lesion into the distal LAD. IFR was 0.85 (Positive. Pathological is <0.89). Coronary wire and guide-catheter were removed No angiographic complications identified. Disposition: Home Plan: The patient will be monitored in the recovery area. The above findings were discussed with the referring physician. Continue aggressive medical therapy and risk factor modification. ? Jennie Dunlap M.D. Interventional Cardiology
== END 2025-02-18 15:16 | disposition home or self-care (01) ==
PROVIDERS: PCP Internal Medicine; Visit Provider Internal Medicine
PROC: (CPT 93454; principal; 2025-02-18 09:30)
PROC: 4A033BC Measurement of Arterial Pressure, Coronary, Percutaneous Approach (ICD-10-PCS; CPT 93571; 2025-02-18 09:30)
DX: Z01.810 Encounter for preprocedural cardiovascular examination (principal); Q23.81 Bicuspid aortic valve; I35.0 Nonrheumatic aortic (valve) stenosis; T82.855A Stenosis of coronary artery stent, initial encounter; I25.10 Atherosclerotic heart disease of native coronary artery without angina pectoris; I25.84 Coronary atherosclerosis due to calcified coronary lesion; Y83.8 Other surgical procedures as the cause of abnormal reaction of the patient, or of later complication, without mention of misadventure at the time of the procedure; E11.9 Type 2 diabetes mellitus without complications; I10 Essential (primary) hypertension; E78.5 Hyperlipidemia, unspecified; I25.2 Old myocardial infarction; J44.9 Chronic obstructive pulmonary disease, unspecified; Z87.891 Personal history of nicotine dependence
CPT/HCPCS: 36415; 80048; 85025; 93454; 93571; C1769; C1887; C1894; J0583; J1644; J2003; J2250; J2305; J3010; J7040

== ENCOUNTER 2025-07-23 15:21 | Outpatient (CLI) | payer OTHER, SELFPAY ==
--- NOTE | ~2025-07-23 | CT_ITS ---
EXAMINATION:CT lung screening DATE: 07/23/2025 15:43 INDICATION: Personal history of nicotine dependence. 96 pack year history. TECHNIQUE: Computed tomography (CT) of the chest was performed without intravenous contrast. Automated exposure control and iterative reconstruction technique were employed. The dose-length product (DLP) was 191.17 mGy-cm. COMPARISON: CT abdomen and pelvis 03/25/17 FINDINGS: The lungs demonstrate mosaic attenuation, likely small airways disease. There is mild atelectasis bilaterally. No pleural effusion. The heart size is normal. There are changes of aortic valve replacement. There are coronary artery calcifications. No pericardial effusion. There are changes of coronary artery bypass grafting. There are bridging endplate osteophytes at multiple levels in the spine, consistent with diffuse idiopathic skeletal hyperostosis (DISH). IMPRESSION: 1. Lung-RADS category 1: Negative. Continue annual screening with noncontrast low-dose chest CT in 12 months. Reviewed, dictated and finalized at location E. IMPRESSION: 1. Lung-RADS category 1: Negative. Continue annual screening with noncontrast l ow-dose chest CT in 12 months.
--- OUTSIDE RECORDS SUMMARY | 2025-07-23 15:45 | XMS_ITS | Clinical Summary ---
Author Organization [facility] Address [employer] [address] [place] [address] Phone Care Team Providers Care Human Resources Assistant Name Role Phone Mohan Ashby MD Primary Care Provider [phone] Ilan Reich MD Unavailable [phone] Allergies No known active allergies Medications aspirin [...] mouth daily. 2 Active Accu-Chek FastClix Lancets [facility] USE TO TEST BLOOD SUGAR TWICE A [...] of coronary artery stent placement 01/25 manager terminal current use of insulin 04/30/2014 Atherosclerosis of [...] (HCV) Screening 1960 Diabetes: Nephropathy Screening 1978 Cologuard 2005 Colonoscopy 2005 Colorectal Cancer Screening 2005 Immunochemical Fecal Occult Blood 2005 Zoster Immunization (1 of 2) 2010 Pneumococcal Immunization (5 0+ years) (2 of 2 - PCV) 01/27/2015 01/27/2014 PSA Discussion 2015 Respiratory Syncytial Virus (RSV) Immunization (Adult) (1 - Risk 60-74 years 1-dose series) 2020 Influenza Immunization (#1) 2025 10/05/2021 SARS-COV-2 Immunization (3 - season) 2025 08/20/2021, 07/27/2021 Pneumococcal Immunization Combined Discontinued 01/27/2014 DTaP/Tdap/Td Immunization Discontinued 03/11/2022 Hepatitis B Immunization Aged Out No longer eligible based on patient's age to complete this topic Human Papillomavirus (HPV) Immunization Aged Out No longer eligible based on patient's age to complete this topic Meningococcal Immunization (ACWY) Aged Out No longer eligible based on patient's age to complete this topic Rotavirus Immunization Aged Out No lo nger eligible based on patient's age to complete this topic Insurance Care Teams Human Resources Assistant Relationship Specialty Start Date End Date Mohan Ashby MD PCP - General Internal Medicine 04/06/22 Ilan Reich MD [address] [place] [address] Cardiovascular Disease - Cardiology 04/22/22
--- OUTSIDE RECORDS SUMMARY | 2025-07-23 15:45 | XMS_ITS | Encounter Summary ---
Author Organization [facility] Healthcare Address [facility] [place] [address] Care Team Providers Care Photographic Platemaker Name Role Phone Mohan Ashby MD Primary Care Provider [phone] Anthony Dunn MD Unavailable [phone] Ilan Reich MD Unavailable [phone] Miscellaneous, Not In File Unavailable Unava ilable Encounter Details Date Type Department Care Team (Late st Contact Info) Description 12/31/2024 Orders Only [facility] Health Information Management [address] [place] [id number] Scanning, Provider Social History Tobacco Use Types Packs/Day Years Used Date Smoking Tobacco: Every Day Comments:Smoking History Pac ks/day: 1 Packs Alcohol Use Standard Drinks/Week Comments Yes 0 (1 standard drink = 0.6 oz pur e alcohol) Sex and Gender Information Value Date Recorded Sex Assigned at Not on file 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 Gender Identity Not on file Sexual Orientation Not on file documented as of this encounter Plan of Treatment Not on file documented as of this encounter Procedures Procedure Name Priority Date/Time Associated Diagnosis Comments CARDIOLOGY DOCUMENT SCAN 12/31/2024 documented in this encounter Results * Cardiology Document Scan (12/31/2024) Anatomical Region Laterality Modality Other us Provider Scanning CV CARDIAC SERVICES PROCEDURES Final Result documented in this encounter Visit Diagnoses Not on filedocumented in this encounter Care Teams Photographic Platemaker Relationship Specialty Start Date End Date Mohan Ashby MD PCP - General Internal Medicine 01/25/18 Anthony Dunn MD Surgeon Cardiothoracic Surgery 03/26/25 Ilan Reich MD [address] [facility] [address] [place] [address] Consulting Physician Cardiology 03/26/25 Miscellaneous, Not In File 03/26/25 documented as of this encounter
--- OUTSIDE RECORDS SUMMARY | 2025-07-23 15:45 | XMS_ITS | Encounter Summary ---
Author Organization [facility] Healthcare Address [address] [place] [address] Care Team Providers Care Associate Broker Name Role Phone Mohan Ashby MD Primary Care Provider [phone] Anthony Dunn MD Unavailable [phone] Ilan Reich MD Unavailable [phone] Miscellaneous, Not In File Unavailable Unava ilable Encounter Details Date Type Department Care Team (Late st Contact Info) Description 04/08/2025 [facility] Post Discharge Follow up phone call [facility] [address] [place] [address] Toya Gibbs Social History Tobacco Use Types Packs/Day Years Used Date Smoking Tobacco: Former Cigarettes Smokeless Tobacco: Former Chew Comments:Quit 12/30/2024 when he was sick with COVID; Alcohol Use Standard Drinks/Week Comments Yes 0 (1 standard drink = 0.6 oz pur e alcohol) OASIS D0700: Social Isolation Answer Da te Recorded Frequency of experiencing loneliness or isolatio n Never 03/29/2025 OASIS A1250: Transportation Answer Date Recorded Lack of Transportation (Medical) No 03/29/2025 Lack of Transportation (Non-Medical) No 03/29/2025 Patient Unable or Declines to Respond No 03/29/2025 OASIS B1300: Health Literacy Answer Federico e Recorded Frequency of needing help to read materials from doctor or pharmacy Never 03/29/2025 [facility] Utilities Answer Date Recorded In the past 12 months has e electric, gas, oil, or water company threatened to shut off services in your home? No 03/21/2025 Social Connection and Isolation Panel Answer Date Recorded In a typical week, how many times do you talk on the phone with family, friends, or neighbors? Once a week 03/21/2025 How often do you get together with friends or re latives? Once a week 03/21/2025 How often do you attend anglican or pentecostal serv ices? Never 03/21/2025 Do you belong to any clubs o r organizations such as anglican groups, unions, fraternal or athletic groups, or school groups? No 03/21/2025 How often do you attend meet ings of the clubs or organizations you belong to? Never 03/21/2025 Are you , , di vorced, , never , or living with a partner? 03/21/2025 AUDIT-C Answer Date Recorded Q1: How often do you have a drink containing alc ohol? 2-4 times a month 03/20/2025 Q2: How many drinks containi ng alcohol do you have on a typical day when you are drinking? 5 or 6 03/20/2025 Q3: How often do you have si x or more drinks on one occasion? Never 03/20/2025 Overall Financial Resource Strain (CARDIA) Answe r Date Recorded How hard is it for you to pa y for the very basics like food, housing, medical care, and heating? Not hard at all 03/21/2025 [facility] of Occupat ional Health - Occupational Stress Questionnaire Answer Date Recorded Do you feel stress - tense, restless, nervous, or anxious, or unable to sleep at night because your mind is troubled all the time - these days? Not at all 03/21/2025 Hunger Vital Sign Answer Date Recorded Within the past 12 months, y ou worried that your food would run out before you got the money to buy more. Never true 03/21/20 25 Within the past 12 months, t he food you bought just didn't last and you didn't have money to get more. Never true 03/21/2025 PRAPARE - Transportation Answer Date Re corded In the past 12 months, has l ack of transportation kept you from medical appointments or from getting medications? No 07/2025 In the past 12 months, has l ack of transportation kept you from meetings, work, or from getting things needed for daily living? No 03/21/2025 Housing Stability Vital Sign Answer Federico e Recorded In the last 12 months, was t here a time when you were not able to pay the mortgage or rent on time? No 03/21/2025 In the past 12 months, how m any times have you moved where you were living? 0 03/21/2025 At any time in the past 12 m [facility], were you homeless or living in a senior care (including now)? No 03/21/2025 Personal Safety Answer Date Recorded Have you ever been in or are you currently in a harmful physical or emotional relationship or is someone making you feel afraid or unsafe? Denies 03/20/2025 Sex and Gender Information Value Date Recorded Sex Assigned at Not on file Legal Sex Male 4:11 AM PSYCHOLOGIST ENGINEERING Gender Identity Not on file Sexual Orientation Not on file documented as of this encounter Plan of Treatment Not on file documented as of this encounter Visit Diagnoses Not on filedocumented in this encounter Care Teams Associate Broker Relationship Specialty Start Date End Date Mohan Ashby MD PCP - General Internal Medicine 01/25/18 Anthony Dunn MD Surgeon Cardiothoracic Surgery 03/26/25 Ilan Reich MD [address] [place] [address] Consulting Physician Cardiology 03/26/25 Miscellaneous, Not In File 03/26/25 documented as of this encounter
--- OUTSIDE RECORDS SUMMARY | 2025-07-23 15:45 | XMS_ITS | Encounter Summary ---
Author Organization [facility] Healthcare Address [facility] [place] [address] Care Team Providers Care Associate Professor Of Radiology Name Role Phone Mohan Ashby MD Primary Care Provider [phone] Anthony Dunn MD Unavailable [phone] Ilan Reich MD Unavailable [phone] Miscellaneous, Not In File Unavailable Unava ilable Encounter Details Date Type Department Care Team (Late st Contact Info) Description 01/13/2025 Orders Only [facility] Health Information Management [address] [place] [address] Scanning, Provider Social History Tobacco Use Types Packs/Day Years Used Date Smoking Tobacco: Every Day Comments:Smoking History Pac ks/day: 1 Packs Alcohol Use Standard Drinks/Week Comments Yes 0 (1 standard drink = 0.6 oz pur e alcohol) Sex and Gender Information Value Date Recorded Sex Assigned at Not on file Legal Sex Male 4:11 AM HEALTH UNIT COORDINATOR Gender Identity Not on file Sexual Orientation Not on file documented as of this encounter Plan of Treatment Not on file documented as of this encounter Procedures Procedure Name Priority Date/Time Associated Diagnosis Comments SCAN - RADIOLOGY/IMAGING 01/13/2025 documented in this encounter Results * SCAN - RADIOLOGY/IMAGING (01/13/2025) Anatomical Region Laterality Modality Other us Provider Scanning Final Result documented in this encounter Visit Diagnoses Not on filedocumented in this encounter Care Teams Associate Professor Of Radiology Relationship Specialty Start Date End Date Mohan Ashby MD PCP - General Internal Medicine 01/25/18 Anthony Dunn MD Surgeon Cardiothoracic Surgery 03/26/25 Ilan Reich MD [address] [facility] [address] [place] [address] Consulting Physician Cardiology 03/26/25 Miscellaneous, Not In File 03/26/25 documented as of this encounter
--- OUTSIDE RECORDS SUMMARY | 2025-07-23 15:45 | XMS_ITS | Clinical Summary ---
Author Organization [facility] [address] Address [address] [place] [address] Care Team Providers Care Intelligence Officer Name Role Phone Mohan Ashby MD Primary Care Provider [phone] Anthony Dunn MD Unavailable [phone] Ilan Reich MD Unavailable [phone] Miscellaneous, Not In File Unavailable Unava ilable Allergies No known active allergies Medications metFORMIN (GLUCOPHAGE) 1,000 mg tabletIndication s:type 2 diabetes mellitus TAKE 2 TABLET DAILY--NEEDS TO MAKE AND KEEP APPT. 60 1 5 Active BASAGLAR 100 unit/mL (3 mL) pen for injectionIndicat ions:Diabetes Mellitus Inject 82 Units under the skin as needed FSBS check BID, takes insulin if BS >125 3 Active aspirin 81 mg enteric coated tabletIndication s:acute myocardial infarction Take 1 tablet by mouth every morning Active blood-glucose sensor device For monitoring blood sugars before meals and at bedtime. Place sensor to back of upper arm. Remove and replace with new sensor every [address] sensor to back of upper arm. Always rotate arms when applying new sensor. 3 each 5 Active blood-glucose,re ceiver,cont (Dexcom G7 Blank Driller) misc To be used with Dexcom G7 CGM sensors for monitoring blood sugar before meals and at bedtime. 1 each 5 Active spironolactone (ALDACTONE) 25 mg tabletIndication s:chronic heart failure,hyperten salome Take 0.5 tablets (12.5 mg total) by mouth daily 15 tablet 5 Active acetaminophen 500 mg capsuleIndicatio ns:Pain Take 2 capsules (1,000 mg total) by mouth every 6 (six) hours as needed for pain or fever 5 Active docusate sodium (COLACE) 100 mg capsuleIndicatio ns:constipation Take 1 capsule (100 mg total) by mouth 2 (two) times a day as needed for constipation 60 capsule 5 Active tirzepatide (Mounjaro) 7.5 mg/0.5 mL pen injector injectionIndicat ions:type 2 diabetes mellitus Inject 7.5 mg under the skin once a week. Indications: type 2 diabetes mellitus Active Jardiance 10 mg tabletIndication s:heart failure associated with type 2 diabetes mellitus Take 1 tablet (10 mg total) by mouth nightly 90 tablet 1 5 Active sacubitriL-valsa rtan (ENTRESTO) 24-26 mg tabletIndication s:chronic heart failure Take 1 tablet by mouth 2 (two) times a day 60 tablet 3 5 Active Eliquis 5 mg tabletIndication s:atrial fibrillation Take 1 tablet (5 mg total) by mouth every 12 (twelve) hours 60 tablet 5 5 026 Active metoprolol tartrate (LOPRESSOR) 25 mg immediate release tabletIndication s:coronary artery disease Take 0.5 tablets (12.5 mg total) by mouth 2 (two) times a day 30 tablet 5 5 025 Active rosuvastatin (CRESTOR) 40 mg tabletIndication s:coronary artery disease Take 1 tablet (40 mg total) by mouth nightly 30 tablet 5 5 025 Active Active Problems Problem Noted Date Diagnosed Date Hx of CABG 07/04/2025 H/O prosthetic aortic valve replacement 07/04/20 25 Aortic stenosis, severe 03/03/2025 Aortic valve stenosis 02/04/2025 Persistent atrial fibrillation 01/06/2025 Nonrheumatic aortic valve stenosis 06/16/2022 Morbid (severe) obesity due to excess calories 0 06/16/2022 Coronary artery disease invo lving cheesh-na coronary artery of cheesh-na heart without angina pectoris 01/25/2018 History of coronary artery stent placement 01/25 intermediate current use of insulin 04/30/2014 Hyperlipidemia 01/27/2014 Seborrheic eczema 01/27/2014 Atherosclerosis of coronary artery 01/27/2014 Overview (02/23/2018): Description: s/p two stents Hypertension 01/27/2014 Type 2 diabetes mellitus 01/27/2014 Encounters Date Type Department Care Team Description 07/04/2025 10:30 AM CDT Office Visit [facility] Medical [facility] Cardiology at [address] [place] [address] Ilan Reich MD Hx of CABG (Primary Dx); H/O prosthetic aortic valve replacement 06/26/2025 1:00 PM CDT Office Visit [facility] Surgery [address] [place] [address] [address] [place] [address] Perri Sykes NP S/P AVR (aortic valve replacement) (Primary Dx) 06/11/2025 Telephone [facility] Cardiology [address] [place] [address] [place] [phone] Ilan Reich MD 05/08/2025 Telephone [facility] Cardiology [address] [place] [address] [address] [place] [phone] Ilan Reich MD 04/30/2025 Telephone [facility] Cardiology [address] [place] [address] [place] [phone] Ilan Reich MD 04/30/2025 Telephone [facility] Cardiology [address] [place] [address] [address] [place] [phone] Ilan Reich MD 04/29/2025 11:30 AM CDT Office Visit [facility] Cardiology [address] [place] [phone] Lurdes Spears NP Coronary artery disease involving cheesh-na coronary artery of cheesh-na heart without angina pectoris (Primary Dx); S/P aortic valve replacement with bioprosthetic valve; Hx of CABG; Cardiomyopathy, unspecified type (HCC); Paroxysmal atrial fibrillation (HCC); Hospital discharge follow-up 04/24/2025 9:30 AM CDT Home Care Visit [facility] - [address] [place] [address] Nimisha Stone RN SN OASIS DISCHARGE 04/23/2025 12:30 PM CDT Office Visit [facility] Medicine Surgery [address] [facility] [address] [place] [address] Perri Sykes NP S/P AVR (aortic valve replacement) (Primary Dx) from Last 3 Months Immunizations Immunization Administration Dates Next Due Pneumococcal Polysaccharide PPV23 01/27/2014 Surgical History Surgery Date Site/Laterality Comments CARDIAC CATHETERIZATION CARDIAC STENT PLACEMENT x2 EYE SURGERY Bilateral cataract Medical History Medical History Date Comments Hypertension Hypertension Chronic obstructive pulmonar y disease (HCC) COPD intermediate current use of insulin (HCC) intermediate current use of insulin - (Added by TW Conv) Myocardial infarction (HCC) Personal history of COVID-19 12/2024 Hyperlipidemia Atrial fibrillation (HCC) Type 2 diabetes mellitus Cataract Family History Medical History Relation Name Comments Heart attack Father Myocardial Infa rction; Heart disease Father Heart Disease - (Added by TW Conv) Stroke Father Stroke Syndrome - (Added by TW Conv) Cancer Mother Cancer - (Added by TW Conv) Diabetes Mother Diabetes Mellit us - (Added by TW Conv) Relation Name Status Comments Father Mother Social History Tobacco Use Types Packs/Day Years Used Date Smoking Tobacco: Former Cigarettes Smokeless Tobacco: Former Chew Tobacco Cessation:Counseling Given: Not Answered Comments:Quit 12/30/2024 when he was sick with COVID; Alcohol Use Standard Drinks/Week Comments Yes 0 (1 standard drink = 0.6 oz pur e alcohol) OASIS D0700: Social Isolation Answer Da te Recorded Frequency of experiencing loneliness or isolatio n Never 04/24/2025 OASIS A1250: Transportation Answer Date Recorded Lack of Transportation (Medical) No 04/24/2025 Lack of Transportation (Non-Medical) No 04/24/2025 Patient Unable or Declines to Respond No 04/24/2025 OASIS B1300: Health Literacy Answer Federico e Recorded Frequency of needing help to read materials from doctor or pharmacy Never 04/24/2025 [facility] Utilities Answer Date Recorded In the past 12 months has e [employer] gas, oil, or water company threatened to [...] week 03/21/2025 How often do you attend mandaen or sikhism serv ices? Never 03/21/2025 Do you belong to any clubs o r organizations such as mandaen groups, unions, fraternal or athletic groups, or [...] and heating? Not hard at all 03/21/2025 [facility] of Occupat ional Health - Occupational Stress [...] any time in the past 12 m [facility], were you homeless or living in a prison (including now)? No 03/21/2025 Personal Safety Answer Date Recorded Have you ever been in or are you currently in a harmful physical or emotional relationship or is someone making you feel afraid or unsafe? 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 Gender Identity Not on file Sexual Orientation Not on file Obstetrics History Last Filed Vital Signs Vital Sign Reading Time Taken Comments Blood Pressure 128/70 07/04/2025 10:25 AM CDT Pulse 84 07/04/2025 10:25 AM CDT Temperature 36.3 C (97.3 F) 04/24/2025 9:37 AM CDT Respiratory Rate 16 06/26/2025 12:4 9 PM CDT Oxygen Saturation 98% 07/04/2025 10: 25 AM CDT Inhaled Oxygen Concentration - - Weight 103.3 kg (227 lb 12.8 oz) 2024 10:25 AM CDT Height 182.9 cm (6') 07/04/2025 10:25 AM CDT Body Mass Index 30.9 07/04/2025 10:25 AM CDT Plan of Treatment Health Maintenance Due Date Last Done Comments Albumin Creatinine Ratio, Urine 1960 Colon Cancer Screening-Colonoscopy 1960 Depression Screening 1960 Hepatitis C Screening 1960 Prostate Cancer Screening-PSA 1960 Dilated Eye Exam 1960 Foot Exam 1960 Hepatitis B Screening 1978 Regular Well Visit/Exam 18-64 1978 Zoster Vaccine (1 of 2) 2010 Pneumococcal vaccine <65 (2 of 2 - PCV) 01/27/2015 01/27/2014 Influenza Vaccine (#1) 2025 , 10/05/2021, 09/06/2019, Additional history exists Hemoglobin A1C 09/14/2025 03/14/2025, 02/21/2025 Lipid Panel 01/06/2026 01/06/2025, 11/0 07/2023, 06/16/2022, Additional history exists eGFR 04/01/2026 04/01/2025, 03/13, 03/25/2025, Additional history exists DTaP/Tdap/Td Vaccine (3 - Td or Tdap) 03/11/2032 03/11/2022, 12/05/2008 Medical Devices Implanted Type Area Carport Erector Device Identifier Shelf Expiration Date Model / Serial / Lot Atricure Clip Closure Exclusion System Preloaded Standard Left Atrial Appendage Atriclip 40mm [id number] - [id number] Implanted:Qty: 1 on 03/20/2025 by Anthony Dunn MD at [facility] Clip N/A: Heart Atricure 07/14/2027 [id number] / / [employer] Inspiris Resilia Leaflet Aortic Valve 25mm [id number] - [id number] - [id number] Implanted:Qty: 1 on 03/20/2025 by Anthony Dunn MD at [facility] Prosthetic Valve N/A: Heart [employer] 01/23/2027 [id number] / [id number] / Procedures Procedure Name Priority Date/Time Associated Diagnosis Comments EGFR Routine 04/01/2025 12:15 PM CDT HEMOGLOBIN A1C Routine 03/14/2025 11:37 AM CDT Pre-op testing POCT LIPID PANEL Routine 01/06/2025 4:12 PM CORRECTION OFFICER SUPERVISOR History of coronary artery stent placement Coronary artery disease involving cheesh-na coronary artery of cheesh-na heart without angina pectoris from Last 3 Months or Most Recently Relevant to Health Maintenance Results * eGFR (04/01/2025 12:15 PM CDT) eGFR >90 >=60 mL/min/1. 73 m2 Comment: Interpretive Data Reference Interval Normal >/= 90 mL/min/1.73m2 Mildly decreased* 60 - 89 mL/min/1.73m2 Mildly to moderately decreased 45 - 59 mL/min/1.73m2 Moderately to severely decreased 30 - 44 mL/min/1.73m2 Severely decreased 15 - 29 mL/min/1.73m2 Kidney Failure < 15 mL/min/1.73m2 *Relative to young adult level Estimated glomerular filtration rate is determined by the 2020 CKD-EPI equation recommended by the National Kidney Foundation (A Unifying Approach to GFR Estimation: Recommendations of the NKF-ASK Task Force on Reassessing the Inclusion of Race in Diagnosing Kidney Disease, JASN 2020). The CKD-EPI equation should not be used for patients with unstable renal function and has not been validated in children and those over 70. Current interpretive data was last reviewed 2021. Blood 04/01/2025 12:1 5 PM CDT 04/01/2025 2:58 PM CDT us Anthony Dunn MD LAB BLOOD ORDERABLES Final R esult [facility] Department [place] [address] * (ABNORMAL) Hemoglobin A1c (03/14/2025 11:37 AM CDT) Hgb A1C 11.1(H) 4.0 - 5.6 % Estimated Average Glucose 272 mg/dL JONATAN Comment: The ADA recommends reporting an estimated Average Glucose (eAG) with all Hemoglobin A1c results using the equation derived from a study of 507 normal and diabetic adults. Minority populations were underrepresented and children were not included. (Diabetes Care 31:0471-0205, 2008). The eAG is not equivalent to a fasting glucose. Blood 03/14/2025 11:3 7 AM CDT 03/14/2025 11:41 AM CDT us Anthony Dunn MD LAB BLOOD [place] [address] [address] Department [place] [address] * POCT lipid panel (01/06/2025 4:12 PM CORRECTION OFFICER SUPERVISOR) Cholesterol, POC <100 mg/dL Comment:GLU = 277 HDL, POC 32 mg/dL Triglycerides, POC 77 mg/dL LDL Cholesterol POC 52 mg/dL Chol/HDL Ratio, POC N/A Non-HDL Cholesterol, POC N/A mg/dL Cholesterol Total, POC <100 mg/dL Capillary blood 01/06/2025 4 :12 PM CORRECTION OFFICER SUPERVISOR Ilan Reich MD POINT OF CARE TEST ORDER DONNELL Final Result from Last 3 Months or Most Recently Relevant to Health Maintenance Insurance [facility]/PPO Address: [facility] [address] [place] [address] [facility]/PPO Address: [address] [place] [phone] [facility]/PPO Address: [address] [place] [phone] Advance Directives For more information, please contact: [phone] * Full Code (Latest Code Status on File) Date Activated Date Inactivated Comments 03/20/2025 4:29 PM 03/26/2025 5:30 PM Care Teams Intelligence Officer Relationship Specialty Start Date End Date Mohan Ashby MD PCP - General Internal Medicine 01/25/18 Anthony Dunn MD Surgeon Cardiothoracic Surgery 03/26/25 Ilan Reich MD [address] [place] [address] Consulting Physician Cardiology 03/26/25 Miscellaneous, Not In File 03/26/25
--- OUTSIDE RECORDS SUMMARY | 2025-07-23 15:45 | XMS_ITS | Encounter Summary ---
Author Organization [facility] Healthcare Address [facility] [place] [address] Care Team Providers Care Valve Technician Name Role Phone Mohan Ashby MD Primary Care Provider [phone] Anthony Dunn MD Unavailable [phone] Ilan Reich MD Unavailable [phone] Miscellaneous, Not In File Unavailable Unava ilable Encounter Details Date Type Department Care Team (Late st Contact Info) Description 12/30/2024 Orders Only [facility] Health Information Management [address] [place] [address] Scanning, Provider Social History Tobacco Use Types Packs/Day Years Used Date Smoking Tobacco: Every Day Comments:Smoking History Pac ks/day: 1 Packs Alcohol Use Standard Drinks/Week Comments Yes 0 (1 standard drink = 0.6 oz pur e alcohol) Sex and Gender Information Value Date Recorded Sex Assigned at Not on file 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 Gender Identity Not on file Sexual Orientation Not on file documented as of this encounter Plan of Treatment Not on file documented as of this encounter Procedures Procedure Name Priority Date/Time Associated Diagnosis Comments SCAN - RADIOLOGY/IMAGING 12/30/2024 documented in this encounter Results * SCAN - RADIOLOGY/IMAGING (12/30/2024) Anatomical Region Laterality Modality Other us Provider Scanning Final Result documented in this encounter Visit Diagnoses Not on filedocumented in this encounter Care Teams Valve Technician Relationship Specialty Start Date End Date Mohan Ashby MD PCP - General Internal Medicine 01/25/18 Anthony Dunn MD Surgeon Cardiothoracic Surgery 03/26/25 Ilan Reich MD [address] [facility] [address] [place] [address] Consulting Physician Cardiology 03/26/25 Miscellaneous, Not In File 03/26/25 documented as of this encounter
== END 2025-07-23 15:22 | disposition home or self-care (01) ==
PROVIDERS: PCP Internal Medicine; Visit Provider Internal Medicine
DX: Z12.2 Encounter for screening for malignant neoplasm of respiratory organs (principal); Z87.891 Personal history of nicotine dependence
CPT/HCPCS: 71271

== ENCOUNTER 2025-09-03 10:00 | Outpatient (RCR) | payer OTHER, SELFPAY | END 2025-09-04 09:30 | disposition home or self-care (01) | LOC: ANHCPREHAB 10:00 | PROVIDERS: PCP Internal Medicine; Visit Provider Specialist | DX: Z95.1 Presence of aortocoronary bypass graft (principal); Z95.5 Presence of coronary angioplasty implant and graft; Z95.2 Presence of prosthetic heart valve | CPT/HCPCS: 93798 ==